=== PATIENT | male | born 1960 | race Caucasian/White ===

== ENCOUNTER 2017-06-09 07:30 | Inpatient (IN) | payer OTHER ==
[2017-06-09] MEDS ORDERED: LIDOCAINE 2% INJ 20 MG/ML (20 ML MDV) ONE ×2 (10:06→12:23)
[2017-06-09] MEDS ORDERED: fentaNYL (PF) 50 MCG/ML 2 ML AMP ONE (10:06)
[2017-06-09] MEDS ORDERED: MIDAZOLAM 2 MG/2 ML VIAL ONE ×2 (10:06→12:23)
[2017-06-09] MEDS ORDERED: MIDAZOLAM 2 MG/2 ML VIAL IV ONE ×3 (10:32→13:07)
[2017-06-09] MEDS ORDERED: fentaNYL (PF) 50 MCG/ML 2 ML AMP IV ONE (10:32)
[2017-06-09] MEDS ORDERED: LIDOCAINE 2% INJ 20 MG/ML SQ ONE (10:37)
[2017-06-09] MEDS ORDERED: NITROGLYCERIN 1000MCG/10ML SYRINGE INTRACORON ONE (10:44)
[2017-06-09] MEDS ORDERED: IOHEXOL 350 MG/ML 125ML BOTTLE INJ ONE (10:56)
[2017-06-09] MEDS ORDERED: HYDROmorphone 2 MG/ML 1 ML SYRINGE ONE ×2 (11:04→13:23)
[2017-06-09] MEDS ORDERED: HYDROmorphone 0.5 MG/0.5 ML SYRINGE IVP ONE (11:05)
[2017-06-09] MEDS ORDERED: SODIUM CHLORIDE 0.9% 1,000 ML IV ONE ×2 (11:06→13:10)
--- NOTE | 2017-06-09 12:08 | CC ---
CARDIAC CATHETERIZATION REPORT Mr. Gordon is a 56-year-old gentleman who started having chest discomfort yesterday. Patient's chest pain persisted and he came to the emergency room this morning. EKG showed diffuse T-wave inversions in the anterior lateral leads. In view of that, the patient was transferred from the emergency room. Patient's initial troponin was 1.2. This patient has a history of multiple angioplasties in the past. Patient is noncompliant with the medications and does not follow with a doctor. His last cardiac catheterization was done in January of 2016. Prior to that, patient had a stent in the proximal and mid LAD as well as the right coronary artery. PROCEDURE: Right groin was prepped and draped in the usual manner and the skin was infiltrated with 2% Xylocaine. The right femoral artery was entered using Seldinger technique. A #6-Irish sheath was placed in. Selective coronary angiography was then performed in multiple projections and the left ventricular pressures were obtained. The sheath was left in place and sutured. HEMODYNAMICS: Left ventricular end-diastolic pressure is 16 mmHg prior to angiography. No gradient is noted across the aortic valve. SELECTIVE CORONARY ANGIOGRAPHY: Left main coronary artery is short and patent. LAD is a good caliber blood vessel, and very proximal LAD just beyond the left main has a 90% stenosis. The mid LAD at the site of prior stent placement has about 30% to 40% stenosis. Circumflex coronary artery is an a good caliber blood vessel and it uses a good size obtuse marginal branch. Circumflex coronary artery and its branches are normal. The right coronary artery is a good caliber blood vessel and just proximal to the prior stent placement there is a 40% to 50% stenosis and at the site of distal edge of the stent there is another area of 40% to 50% stenosis. FINAL IMPRESSION: 1. This study shows evidence of 90% stenosis in the proximal left anterior descending artery, the mid left anterior descending artery at the site of prior stent placement has a 40% stenosis. 2. Circumflex coronary artery is normal. 3. The right coronary artery has a 40% to 50% stenosis at the site of prior proximal and distal edge of the stent. RECOMMENDATIONS: We will review the films with Dr. Génesis Feliciano. Consider stent to the LAD and possibly FFR to the RCA. MMODL / IJN: [id number] /
[2017-06-09] MEDS ORDERED: diphenhydrAMINE 50 MG/ML 1 ML VIAL ONE (12:24)
[2017-06-09] MEDS ORDERED: NITROGLYCERIN SL TABS 0.4 MG TAB SUBLINGUAL ONE ×2 (12:58→13:07)
[2017-06-09] MEDS: NITROGLYCERIN 1000MCG/10ML SYRINGE INTRACORON ONE ×3 (13:05→13:33)
[2017-06-09] MEDS ORDERED: diphenhydrAMINE 50 MG/ML 1 ML VIAL IVP ONE (13:07)
[2017-06-09] MEDS ORDERED: TIROFIBAN BOLUS 12.5MG/250 ML BAG IV ONE (13:09)
[2017-06-09] MEDS ORDERED: TIROFIBAN 12.5MG-250ML NS 250 ML IV ONE (13:10)
[2017-06-09] MEDS ORDERED: HEPARIN SODIUM 1,000 UN/ML (10ML VL) ONE (13:13)
[2017-06-09] MEDS ORDERED: amLODIPine 5 MG TAB ONE ×2 (13:18)
[2017-06-09] MEDS ORDERED: TICAGRELOR 90 MG TAB ONE (13:20)
[2017-06-09] MEDS ORDERED: amLODIPine 5 MG TAB PO ONE (13:21)
[2017-06-09] MEDS ORDERED: TICAGRELOR 90 MG TAB PO ONE (13:23)
[2017-06-09] MEDS ORDERED: HYDROmorphone 2 MG/ML 1 ML SYRINGE IV ONE (13:24)
[2017-06-09] MEDS ORDERED: NITROGLYCERIN-D5W PMX 50 MG in DEXTROSE/WATER 1 250ML.BAG IV ONE (13:30)
[2017-06-09] MEDS ORDERED: IOHEXOL 350 MG/ML (PER ML) 100ML BTL INJ ONE (13:38)
[2017-06-09] MEDS ORDERED: ZOLPIDEM 5 MG TAB PO PRN (13:41)
[2017-06-09] MEDS ORDERED: RX INFO: IV CONTRAST WAS GIVEN 1 EACH MISC MISCELLANE PRN (13:41)
[2017-06-09] MEDS ORDERED: NITROGLYCERIN SL TABS 0.4 MG TAB SUBLINGUAL PRN (13:41)
[2017-06-09] MEDS ORDERED: ATROPINE SULFATE 0.1 MG/ML 10ML SYRINGE IV PRN (13:41)
[2017-06-09] MEDS ORDERED: MAG HYDROX/AL HYDROX/SIMETH 30 ML CUP PO PRN (13:41)
[2017-06-09] MEDS ORDERED: ONDANSETRON 4 MG/2 ML VIAL ONE (13:47)
[2017-06-09] MEDS ORDERED: ONDANSETRON 4 MG/2 ML VIAL IVP ONE (13:49)
[2017-06-09] MEDS ORDERED: TIROFIBAN 12.5MG-250ML NS 250 ML IV SCH (14:00)
[2017-06-09] MEDS ORDERED: amLODIPine 5 MG TAB PO SCH (14:00)
[2017-06-09 14:03] LABS: Glucose,Whole Blood 120 mg/dL (75-99)
[2017-06-09] MEDS: SODIUM CHLORIDE 0.9% 1,000 ML IV SCH (14:07)
[2017-06-09] MEDS: NITROGLYCERIN-D5W PMX 50 MG in DEXTROSE/WATER 1 250ML.BAG IV SCH (14:10)
[2017-06-09 14:34] VITALS: BMI 22.2
--- NOTE | 2017-06-09 15:20 | PTCA ---
PERCUTANEOUSTRANS CORORONARY ANGIOGRAPHY DATE OF SERVICE: 06/09/2017 PROCEDURE: PTCA and stenting of proximal left anterior descending coronary artery and PTCA of mid LAD. Performed by Dr. Génesis Feliciano MODERATE CONSCIOUS SEDATION TIME: 35 minutes. CLINICAL INFORMATION: Mr. Ray Gordon is a 56-year-old gentleman with a history of CAD, noncompliance with medications, who sees Dr. VC Desai in the outpatient setting. This gentleman came into the hospital at [facility] with chest pain, had a non-ST elevation MD with precordial ST changes and underwent cardiac cath by Dr. VC Desai, which revealed a 99% stenosis involving the proximal LAD within the previously placed stent. The stent was placed in 2014 by . Prior to that, he also had a mid RCA stenting as well as mid LAD stenting. The last stent performed by was in 2014 involving the left main as well as the proximal LAD. This area has restenosis in the distal half of the stent of about 95% with somewhat partial flow in the distal LAD. He was advised intervention that was performed on the same day. PROCEDURE NOTE: The existing 6-Tajik introducer in the right femoral artery was used to perform the procedure. I used a JL3.5 guide catheter to cannulate the left coronary artery. Using a whisper wire, I crossed the lesion, wire was kept distally. A 2.5 caliber 12 mm long NCU4 balloon was used to pre-dilate the proximal LAD lesion and the same balloon was used to dilate the mid LAD in-stent restenosis as well. The in-stent restenosis in mid LAD was not that significant, but because of sluggish flow, it seemed to be more significant. There was a small diagonal branch that was also jailed just before the stented segment in mid LAD. After predilating the lesion in the mid LA, excellent angiographic result was noted. The proximal LAD was addressed with a 2.75 caliber, 12 mm long Xience stent at 12 atmospheres. Patient had mild chest discomfort, precordial ST changes that were more obvious. Excellent angiographic result without complication was achieved. Patient received Brilinta 180 mg orally. He received heparin 5000 units and IV push and also received Aggrastat infusion as per protocol and his ACT was about 220. Patient tolerated the procedure well. Excellent angiographic result was achieved. Angio-Seal device was used to secure hemostasis and was sent to the room in a stable condition. Results were discussed with the patient, but no other family member was available. MMODL / IJN: [id number] /
[2017-06-09] MEDS: HYDROcodone/APAP 5-325MG 1 EACH TAB PO PRN (20:00)
[2017-06-09] MEDS: ATORVASTATIN 80 MG TAB PO SCH (20:01)
[2017-06-09] MEDS: amLODIPine 5 MG TAB PO SCH (20:01)
[2017-06-09] MEDS: METOPROLOL TARTRATE 25 MG TAB PO SCH (20:01)
[2017-06-10] MEDS: HYDROcodone/APAP 5-325MG 1 EACH TAB PO PRN ×4 (02:14→22:29)
[2017-06-10 04:39] LABS: Basophils # (A) 0.1 k/uL (0-0.2); Basophils % (A) 1 %; CH 34.5; CHCM 32.9; Eosinophils # (A) 0.1 k/uL (0-0.7); Eosinophils % (A) 2 %; HGB 14.2 gm/dL (13.0-17.5); Luc # (Auto) 0.15; Luc % (Auto) 2; Lymphocytes # (A) 2.2 k/uL (1.0-4.8); Lymphocytes % (A) 29 %; MCH 34.7 pg (25.0-35.0); MCV 105.3 fL (80.0-100.0); Macrocytosis Moderate; Mean Platelet Volume 7.4; Monocytes # (A) 0.7 k/uL (0-1.0); Monocytes % (A) 9 %; Neutrophils # (A) 4.3 k/uL (1.3-7.7); Neutrophils % (A) 58 %; RBC 4.08 m/uL (4.30-5.90); RDW 14.5 % (11.5-15.5); WBC 7.4 k/uL (3.8-10.6); WBC (Perox) 7.06
[2017-06-10 04:57] LABS: Anion Gap 9 mmol/L; Blood Urea Nitrogen 7 mg/dL (9-20); Calcium 9.1 mg/dL (8.4-10.2); Carbon Dioxide 22 mmol/L (22-30); Chloride 105 mmol/L (98-107); Glucose 100 mg/dL (74-99); Non-African American GFR(MDRD) >60 (>60 ml/min/1.73 sqM); Potassium 4.2 mmol/L (3.5-5.1); Sodium 136 mmol/L (137-145)
[2017-06-10] MEDS: SODIUM CHLORIDE 0.9% 1,000 ML IV SCH (05:37)
[2017-06-10] MEDS: CLOPIDOGREL 75 MG TAB PO SCH (08:31)
[2017-06-10] MEDS: METOPROLOL TARTRATE 25 MG TAB PO SCH ×2 (08:31→20:37)
[2017-06-10] MEDS: amLODIPine 5 MG TAB PO SCH (08:31)
[2017-06-10] MEDS: LISINOPRIL 20 MG TAB PO SCH (08:31)
[2017-06-10] MEDS: ASPIRIN 81 MG PO SCH (08:31)
[2017-06-10] MEDS: VARENICLINE 0.5 MG TAB PO SCH (11:29)
--- NOTE | 2017-06-10 11:39 | CONS ---
CONSULTATION HISTORY: This patient is status post stent to the proximal LAD. He is doing well. Denies any chest pain. Denies any shortness of breath. The right groin is slightly tender. There is no evidence of any hematoma. Blood pressure is 110/78 mmHg. First and second heart sounds are normal. Lungs are clinically clear to auscultation and percussion. Abdomen is soft. The patient's electrolytes, BUN, and creatinine are normal. The patient will be transferred to the selective care unit. Echo and Doppler study will be done. MMODL / IJN: [id number] /
--- NOTE | 2017-06-10 13:28 | ECHOF ---
Referral Reason:acute mi MEASUREMENTS -------- HEIGHT: 182.9 cm WEIGHT: 77.1 kg BP: RVIDd: 3.8 cm (< 3.3) IVSd: 1.1 cm (0.6 - 1.1) LVIDd: 4.6 cm (3.9 - 5.3) LVPWd: 1.1 cm (0.6 - 1.1) IVSs: 1.9 cm LVIDs: 2.7 cm LVPWs: 1.9 cm LAESV Index (A-L): 18.77 ml/m Ao Diam: 3.3 cm (2.0 - 3.7) AV Cusp: 1.8 cm (1.5 - 2.6) LA Diam: 2.3 cm (2.7 - 3.8) MV EXCURSION: 18.395 mm (> 18.000) MV EF SLOPE: 50 mm/s (70 - 150) EPSS: 0.3 cm MV E Kevin: 0.43 m/s MV DecT: 472 ms MV A Kevin: 0.62 m/s MV E/A Ratio: 0.70 RAP: 5.00 mmHg RVSP: 7.85 mmHg FINDINGS -------- Resting bradycardia (HR<60bpm). This was a technically adequate study. The left ventricular size is normal. There is borderline concentric left ventricular hypertrophy. Overall left ventricular systolic function is low-normal with, an EF between 50 - 55 %. The right ventricle is normal in size and function. Normal LA size by volume 22+/-6 ml/m2. The right atrium is normal in size. There is mild aortic valve sclerosis. There is no evidence of aortic regurgitation. There is no evidence of aortic stenosis. The mitral valve leaflets are mildly thickened. There is trace to mild mitral regurgitation. Trace tricuspid regurgitation present. Right ventricular systolic pressure is normal at < 35 mmHg. There is no evidence of pulmonary hypertension. The pulmonic valve was not well visualized. The aortic root size is normal. Normal inferior vena cava with normal inspiratory collapse consistent with estimated right atrial pressure of 5 mmHg. The pericardium is normal. There is no pericardial effusion. CONCLUSIONS -------- 1. Resting bradycardia (HR<60bpm). 2. Trace tricuspid regurgitation present. 3. Right ventricular systolic pressure is normal at < 35 mmHg. 4. There is no evidence of pulmonary hypertension. 5. The pulmonic valve was not well visualized. 6. The aortic root size is normal. 7. There is no pericardial effusion. 8. This was a technically adequate study. 9. The left ventricular size is normal. 10. There is borderline concentric left ventricular hypertrophy. 11. Overall left ventricular systolic function is low-normal with, an EF between 50 - 55 %. 12. Normal LA size by volume 22+/-6 ml/m2. 13. There is mild aortic valve sclerosis. 14. The mitral valve leaflets are mildly thickened. 15. There is trace to mild mitral regurgitation. [employer] RESEARCH SENIOR PROJECT MANAGER: Johnson Beckett RDCS
[2017-06-10] MEDS: NITROGLYCERIN-D5W PMX 50 MG in DEXTROSE/WATER 1 250ML.BAG IV SCH (14:56)
[2017-06-10] MEDS: ATORVASTATIN 80 MG TAB PO SCH (20:37)
[2017-06-11 01:39] VITALS: RESP 18
[2017-06-11] MEDS: CLOPIDOGREL 75 MG TAB PO SCH (09:26)
[2017-06-11] MEDS: VARENICLINE 0.5 MG TAB PO SCH (09:26)
[2017-06-11] MEDS: ASPIRIN 81 MG PO SCH (09:26)
[2017-06-11] MEDS: NITROGLYCERIN-D5W PMX 50 MG in DEXTROSE/WATER 1 250ML.BAG IV SCH (09:27)
[2017-06-11] MEDS: METOPROLOL TARTRATE 25 MG TAB PO SCH ×2 (09:27→19:59)
[2017-06-11] MEDS: LISINOPRIL 20 MG TAB PO SCH (09:27)
[2017-06-11] MEDS: HYDROcodone/APAP 5-325MG 1 EACH TAB PO PRN ×2 (09:28→19:58)
--- NOTE | 2017-06-11 17:13 | PN ---
PROGRESS NOTE This patient was admitted with a non-Q-wave myocardial infarction and underwent stent to the ostial LAD. Patient is doing well. Denies any chest pain, no shortness of breath. First and second heart sounds are normal. We will continue the current medications. Repeat the chest x-ray. Patient is on Chantix and the patient can be discharged home tomorrow. MMMACIEJ / OTTON: [id number] /
[2017-06-11] MEDS: ATORVASTATIN 80 MG TAB PO SCH (19:59)
[2017-06-12] MEDS: HYDROcodone/APAP 5-325MG 1 EACH TAB PO PRN (07:55)
[2017-06-12] MEDS: ASPIRIN 81 MG PO SCH (07:56)
[2017-06-12] MEDS: METOPROLOL TARTRATE 25 MG TAB PO SCH (07:56)
[2017-06-12] MEDS: CLOPIDOGREL 75 MG TAB PO SCH (07:56)
[2017-06-12] MEDS: LISINOPRIL 20 MG TAB PO SCH (07:57)
[2017-06-12] MEDS: VARENICLINE 0.5 MG TAB PO SCH (07:58)
[2017-06-12] MEDS: NITROGLYCERIN-D5W PMX 50 MG in DEXTROSE/WATER 1 250ML.BAG IV SCH (07:58)
[2017-06-12 13:15] VITALS: BP 113/66; PULSE 58; TEMP 97.7
--- NOTE | 2017-06-12 15:41 | PN ---
PROGRESS NOTE This patient is status post stent to the left anterior descending artery. Patient is doing fairly well. Denies any chest pain. Denies any shortness of breath. Clinically remains stable. First and second heart sounds are normal. Lungs are clear to auscultation and percussion. Patient was again educated regarding taking of the medications regularly. EKG done today shows improvement in the T-wave inversions. Patient will be discharged home and seen in the office in couple of weeks. MMODL / IJN: [id number] /
[2017-06-13] MEDS ORDERED: VARENICLINE 0.5 MG TAB PO SCH (09:00)
[2017-06-16] MEDS ORDERED: VARENICLINE 1 MG TAB PO SCH (21:00)
== END 2017-06-12 16:14 | disposition home or self-care (01) | DRG 247 ==
LOC: OBSVTOIN 10:11 → 3OBS 10:11 → 6ICU 13:26 → 6SEL 06-10 17:23
PROVIDERS: ADMIT Internal Medicine Cardiovascular Disease; ATTEND Internal Medicine Cardiovascular Disease
PROC: B2111ZZ Fluoroscopy of Multiple Coronary Arteries using Low Osmolar Contrast (ICD-10-PCS; 2017-06-09)
PROC: 027034Z Dilation of Coronary Artery, One Artery with Drug-eluting Intraluminal Device, Percutaneous Approach (ICD-10-PCS; principal; 2017-06-09 10:00)
DX: I21.4 Non-ST elevation (NSTEMI) myocardial infarction (principal); T82.855A Stenosis of coronary artery stent, initial encounter; F17.210 Nicotine dependence, cigarettes, uncomplicated; I25.10 Atherosclerotic heart disease of native coronary artery without angina pectoris; T39.016A Underdosing of aspirin, initial encounter; M19.90 Unspecified osteoarthritis, unspecified site; Z96.641 Presence of right artificial hip joint; Z79.82 Long term (current) use of aspirin; Z91.14 Patient's other noncompliance with medication regimen; Z87.19 Personal history of other diseases of the digestive system; Z88.0 Allergy status to penicillin; Z86.73 Personal history of transient ischemic attack (TIA), and cerebral infarction without residual deficits
CPT/HCPCS: 80048; 85025; 85347; 93306; 93458; 94760

== ENCOUNTER 2018-01-07 17:31 | Emergency (ER) | payer OTHER ==
[2018-01-07 17:39] VITALS: BP 176/101; PULSE 94; RESP 20; TEMP 98.4
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
== END 2018-01-07 18:55 | disposition home or self-care (01) ==
LOC: EC 17:31
DX: G89.29 Other chronic pain (principal); M25.551 Pain in right hip; F17.200 Nicotine dependence, unspecified, uncomplicated; Z88.0 Allergy status to penicillin; Z86.14 Personal history of Methicillin resistant Staphylococcus aureus infection; Z96.641 Presence of right artificial hip joint
CPT/HCPCS: 99283

== ENCOUNTER 2018-03-19 13:27 | Emergency (ER) | payer OTHER ==
[2018-03-19 13:44] VITALS: RESP 18
[2018-03-19] MEDS ORDERED: ACETAMINOPHEN TAB 500 MG TAB PO STA (14:14)
[2018-03-19] MEDS ORDERED: IBUPROFEN 600 MG TAB PO STA (14:14)
--- NOTE | 2018-03-19 14:25 | ED ---
Lower Extremity Injury HPI - General Chief Complaint: Extremity Injury, Lower Stated Complaint: fall/hip pain Time Seen by Provider: 03/19/18 13:51 Source: patient Mode of arrival: ambulatory Limitations: no limitations - History of Present Illness Initial Comments: 57-year-old male patient presents to the emergency department today for evaluation of right hip pain. Patient states that this morning he was walking, tripped over the sidewalk, and fell landing on the right hip. Patient states he did hit his head when he fell but he denies any loss of consciousness. States he is having significant right hip pain however he is able to ambulate. Patient did have a previous fracture with subsequent surgery to the right hip. Denies any nausea, vomiting, headache, blurred vision, double vision, neck pain , back pain, chest pain, shortness breath, abdominal pain, or difficulties with bowel movements or urination. - Related Data Previous Rx's Medication Instructions Recorded Aspirin 81 mg PO DAILY #30 chew 06/12/17 Atorvastatin [Lipitor] 80 mg PO HS #30 tab 06/12/17 Clopidogrel [Plavix] 75 mg PO DAILY #30 tab 06/12/17 Lisinopril [Zestril] 20 mg PO DAILY #30 tab 06/12/17 Metoprolol Tartrate [Lopressor] 25 mg PO BID #60 tab 06/12/17 Nitroglycerin Sl Tabs [Nitrostat] 0.4 mg SUBLINGUAL Q5M PRN #25 tab 06/12/17 Varenicline [Chantix Continuing 1 mg PO BID #60 tab 06/12/17 Pack] HYDROcodone/APAP 5-325MG [[place] 5] 1 each PO Q6HR PRN #10 tab 01/07/18 Allergies Allergy/AdvReac Type Severity Reaction Status Date / Time Penicillins AdvReac Nausea & Verified 03/19/18 13:42 Vomiting & Diarrhea Review of Systems ROS Statement: Those systems with pertinent positive or pertinent negative responses have been documented in the HPI. ROS Other: All systems not noted in ROS Statement are negative. Past Medical History Past Medical History: Asthma, Coronary Artery Disease (CAD), Chest Pain / Angina , COPD, CVA/TIA, GERD/Reflux, Hyperlipidemia, Hypertension, Myocardial Infarction (NM), Osteoarthritis (OA), Pneumonia Additional Past Medical History / Comment(s): Hx of 4 NM's last one being on 2014, CVA with tunnel vision bilaterally, PUD, precancerous esophageal polyps removed, esophagial ulceration, generalized arthritis, sinus problems, past r hip fracture with surgery, past L lower leg fracture/casted, past R arm fracture /casted, bilateral clavicles fractrued, circumcism. Last Myocardial Infarction Date:: 07/2015 History of Any Multi-Drug Resistant Organisms: MRSA Date of last positivie culture/infection: 2003 MDRO Source:: chin Past Surgical History: Heart Catheterization, Heart Catheterization With Stent, Hernia Repair, Orthopedic Surgery Additional Past Surgical History / Comment(s): Multiple angioplasties/stents, bilateral inguinal hernia repairs, R hip hemiarthroplasty, left elbow ulnar nerve sx, left shoulder rotator cuff repair, EGD with precancerous polypectomy/ ulerated esophagus, colonoscopy, bronchoscopy Past Anesthesia/Blood Transfusion Reactions: No Reported Reaction Date of Last Stent Placement:: 07/2015 Past Psychological History: Anxiety, Depression Smoking Status: Current every day smoker Past Alcohol Use History: Occasional Past Drug Use History: None Reported - Past Family History Mother Family Medical History: Deep Vein Thrombosis (DVT) Additional Family Medical History / Comment(s): back surgery. Mother is age 76 years. Further hx unknown. Father Family Medical History: Congestive Heart Failure (CHF) Additional Family Medical History / Comment(s): Father at age 53. Hx ETOH abuse. Further HX unknown. General Exam Limitations: no limitations General appearance: alert, in no apparent distress, other (This is a thin appearing adult male patient in no acute distress. Vital signs upon presentation are temperature 99.0F, pulse 91, respirations 18, blood pressure 143/85, pulse ox 98% on room air.) Eye exam: Present: normal appearance, PERRL, EOMI. Absent: scleral icterus, conjunctival injection, periorbital swelling ENT exam: Present: normal exam, normal oropharynx, mucous membranes moist Neck exam: Present: normal inspection, full ROM, other (Nontender, no step-off, no deformity to firm midline palpation of the posterior cervical spine. Full range of motion without pain or limitation.). Absent: tenderness, meningismus, lymphadenopathy Respiratory exam: Present: normal lung sounds bilaterally. Absent: respiratory distress, wheezes, rales, rhonchi, stridor Cardiovascular Exam: Present: regular rate, normal rhythm, normal heart sounds. Absent: systolic murmur, diastolic murmur, rubs, gallop, clicks GI/Abdominal exam: Present: soft, normal bowel sounds. Absent: distended, tenderness, guarding, rebound, rigid Extremities exam: Present: normal inspection, full ROM, tenderness (Right lateral hip tenderness), normal capillary refill, other (Skin to the right lower extremity is pink, warm, and dry. Cap refills less than 3 seconds. Pedal and posttibial pulses are 2+ and equal bilaterally. There is no shortening or rotation. Patient is full range of motion and is able to bear weight.). Absent: pedal edema, joint swelling, calf tenderness Back exam: Present: normal inspection, other (Nontender, no step-off, no deformity to firm midline palpation of the thoracic and lumbar vertebrae. Full range of motion without pain or limitation.). Absent: vertebral tenderness Neurological exam: Present: alert, oriented X3, CN II-XII intact, other ( Strength in all 4 extremities is 5/5.) Psychiatric exam: Present: normal affect, normal mood Skin exam: Present: warm, dry, intact, normal color. Absent: rash Course Vital Signs 03/19/18 13:42 Temperature 99 F Pulse Rate 91 Respiratory 18 Rate Blood Pressure 143/85 O2 Sat by Pulse 98 Oximetry Medical Decision Making - Medical Decision Making 57-year-old male patient presents the emergency department today for evaluation of right hip pain after experiencing a fall this morning. Physical examination does reveal some mild right hip tenderness. Patient has full range of motion and neurovascular status is intact. Patient is able to ambulate on the hip. X- ray of the hip and pelvis were obtained and showed no acute osseous abnormalities. Did inform the patient of results. He is instructed to take Tylenol Motrin for pain control. He is instructed to apply ice to the right hip. He does have an appointment with his orthopedic physician on March 27, he is urged to keep this appointment. Return parameters discussed in detail. He verbalizes understanding and agrees this plan. - Radiology Data Radiology results: report reviewed, image reviewed Single AP view of the pelvis and 2 views of the right hip are obtained. Patient is status post right total hip arthroplasty. No evidence of periprosthetic lucency or. Prosthetic fracture. Heterotopic ossification is seen in the right hip soft tissues. Limited evaluation of the left hip is unremarkable. The overlying soft tissue appears otherwise unremarkable. The hip and sacroiliac joints appear symmetric and unremarkable. Suture material seen within the low pelvis as well as a phleboliths. Impression by Dr. Hernandez shows no acute fracture dislocation in the pelvis or right hip and this patient status post total hip arthroplasty. Disposition Clinical Impression: Contusion of right hip Disposition: HOME SELF-CARE Condition: Good Instructions: Contusion in Adults (ED), Hip Pain (ED) Additional Instructions: Apply ice to the painful areas. Take Tylenol Motrin for pain control. Follow- up with your orthopedic surgeon for recheck in 1-2 days. Return here immediately for any new, worsening, or concerning symptoms. Is patient prescribed a controlled substance at d/c from ED?: No Referrals: Renard Valle MD [Primary Care Provider] - 1-2 days Time of Disposition: 14:59
--- NOTE | 2018-03-19 14:44 | XR ---
EXAMINATION TYPE: XR Hip RT and AP Pelvis DATE OF EXAM: 03/19/2018 COMPARISON: NONE HISTORY: Right hip pain, fall TECHNIQUE: A single AP view of the pelvis is obtained. Two views of the right hip are obtained. FINDINGS: Patient is status post right hip total arthroplasty. No evidence of periprosthetic lucency or periprosthetic fracture. Heterotopic ossification is seen in the right hip soft tissues. The limi katy evaluation of the left hip is unremarkable. The overlying soft tissue appears otherwise unremarka ble. The hip and sacroiliac joints appear symmetric and unremarkable. Suture material is seen within the low pelvis as well as a phlebolith. IMPRESSION: There is no acute fracture or dislocation in the pelvis or right hip in this patient sta tus post total hip arthroplasty.
[2018-03-19 15:10] VITALS: BP 167/99; PULSE 77; TEMP 98.3
== END 2018-03-19 15:09 | disposition home or self-care (01) ==
LOC: SUPCPDRO 13:27 → EC 13:27
DX: S70.01XA Contusion of right hip, initial encounter (principal); F17.200 Nicotine dependence, unspecified, uncomplicated; Z95.1 Presence of aortocoronary bypass graft; Z96.641 Presence of right artificial hip joint; Z98.890 Other specified postprocedural states; Z88.0 Allergy status to penicillin; W01.198A Fall on same level from slipping, tripping and stumbling with subsequent striking against other object, initial encounter; Y92.480 Sidewalk as the place of occurrence of the external cause; Y93.01 Activity, walking, marching and hiking
CPT/HCPCS: 73502; 99283

== ENCOUNTER 2019-05-23 09:34 | Inpatient (IN) | payer OTHER ==
[2019-05-23] MEDS ORDERED: NITROGLYCERIN SL TABS 0.4 MG TAB SUBLINGUAL ONE ×2 (10:39→13:29)
[2019-05-23] MEDS ORDERED: HYDROmorphone 1 MG/ML 1 ML SYRINGE IVP STA (11:02)
[2019-05-23] MEDS ORDERED: HYDROmorphone 1 MG/ML 1 ML SYRINGE IVP PRN (12:03)
[2019-05-23] MEDS ORDERED: NITROGLYCERIN SL TABS 0.4 MG TAB SUBLINGUAL PRN ×2 (13:39→18:35)
[2019-05-23] MEDS ORDERED: ALPRAZolam 0.5 MG TAB PO PRN (13:39)
[2019-05-23] MEDS ORDERED: SODIUM CHLORIDE 0.9% 1,000 ML in EMPTY BAG 1 BAG IV ONE (13:39)
[2019-05-23] MEDS ORDERED: ASPIRIN 325 MG TAB PO STA (13:39)
[2019-05-23] MEDS ORDERED: ALPRAZolam 0.25 MG TAB PO PRN (13:39)
[2019-05-23] MEDS ORDERED: ATORVASTATIN 80 MG TAB PO STA (13:39)
[2019-05-23] MEDS ORDERED: SODIUM CHLORIDE 0.9% 1,000 ML IV ONE (13:44)
[2019-05-23] MEDS ORDERED: MIDAZOLAM PF (FBP) 2 MG/2 ML VIAL IV ONE (14:16)
[2019-05-23] MEDS ORDERED: LIDOCAINE 1% INJ 10MG/ML (20 ML MDV) SQ ONE (14:16)
[2019-05-23] MEDS ORDERED: BIVALIRUDIN 250 MG in SODIUM CHLORIDE 0.9% 50 ML IV ONE (14:25)
[2019-05-23] MEDS ORDERED: BIVALIRUDIN BOLUS 250 MG/50 ML IV ONE (14:25)
[2019-05-23] MEDS ORDERED: ADENOSINE 90 MG in SODIUM CHLORIDE 0.9% 60 ML IVP ONE (14:31)
[2019-05-23] MEDS ORDERED: IOPAMIDOL-370 125ML BTL INJ ONE (14:47)
[2019-05-23] MEDS ORDERED: RX INFO: IV CONTRAST WAS GIVEN 1 EACH MISC MISCELLANE PRN (14:55)
[2019-05-23] MEDS ORDERED: SODIUM CHLORIDE 0.9% 1,000 ML IV SCH (15:00)
[2019-05-23] MEDS ORDERED: ONDANSETRON 4 MG/2 ML VIAL IVP PRN (15:50)
[2019-05-23] MEDS ORDERED: hydrALAZINE HCL 20 MG/ML 1 ML VIAL IVP STA (16:30)
[2019-05-23] MEDS ORDERED: THIAMINE 100 MG TAB PO SCH (17:30)
[2019-05-23] MEDS ORDERED: LORazepam 2 MG/ML INJ IV PRN ×2 (18:45)
[2019-05-23] MEDS: HYDROcodone/APAP 5-325MG 1 EACH TAB PO PRN (18:50)
[2019-05-23] MEDS: LORazepam 2 MG/ML INJ IV PRN ×2 (19:09→21:51)
[2019-05-23] MEDS ORDERED: hydrALAZINE HCL 20 MG/ML 1 ML VIAL IVP PRN (20:34)
[2019-05-23] MEDS ORDERED: amLODIPine 5 MG TAB PO STA (20:34)
[2019-05-23] MEDS: VARENICLINE 1 MG TAB PO SCH (20:35)
[2019-05-23] MEDS: METOPROLOL TARTRATE 25 MG TAB PO SCH (20:37)
--- NOTE | 2019-05-23 20:45 | CE ---
CARDIAC ELECTROPHYSIOLOGY REPORT DATE OF SERVICE: May 23, 2019 PERFORMING PHYSICIAN: Arnulfo Jiménez MD, director packaging. PROCEDURE PERFORMED: Fractional flow reserve FFR of the right coronary artery. INDICATION: This is a pleasant 58-year-old gentleman who sees Dr. VC Desai in the office as an outpatient with known history of CAD and prior stenting of the LAD and RCA, presented to [facility] with chest discomfort and ruled in for acute non-ST elevation myocardial infarction. He underwent a heart catheterization by Dr. Desai at [facility] and that revealed intermediate to severe disease involving the mid RCA, which seems to be in stent. Because of that, an FFR of the RCA was advised. APPROACH: Left common femoral artery. COMPLICATION: None. LEVEL OF SEDATION: Moderate with sedation length of 29 minutes. PROCEDURE DESCRIPTION: After obtaining an informed consent, the patient was brought to the cardiac catheterization laboratory technician. I did exchange the old 6-[place] 11 cm sheath in the left groin into a new 11 cm 6- [place] sheath over a 035 short wire. After that, after zeroing the Doppler wire and equalizing between the Doppler wire and the guiding catheter which was JR4 guiding catheter with an FFR per IV adenosine infusion and the FFR came in to be at 082, which is above the ischemic threshold which is 0.80. At that point, the procedure was completed. Please note that we started anticoagulation with Angiomax before passing the wire. CONCLUSION: Intermediate to severe in-stent restenosis involving the RCA in the midportion. FFR was applied and came in to be at 0.82. POST PROCEDURE MANAGEMENT: 1. Maximize medical treatment. 2. Risk factor modification. 3. Probably an aortogram with runoff down the line. The patient does have occluded right common iliac artery and he has intermittent claudication in the right leg. MMODL / IJN: [id number] /
[2019-05-24] MEDS: THIAMINE 100 MG TAB PO SCH ×2 (06:23→12:12)
[2019-05-24] MEDS: HYDROcodone/APAP 5-325MG 1 EACH TAB PO PRN ×2 (06:51→13:12)
[2019-05-24] MEDS: METOPROLOL TARTRATE 25 MG TAB PO SCH ×2 (08:21→19:58)
[2019-05-24] MEDS: LISINOPRIL 20 MG TAB PO SCH (08:21)
[2019-05-24] MEDS: ASPIRIN 81 MG PO SCH (08:21)
[2019-05-24] MEDS: VARENICLINE 1 MG TAB PO SCH ×2 (08:21→19:58)
[2019-05-24] MEDS: CLOPIDOGREL 75 MG TAB PO SCH (08:21)
--- NOTE | 2019-05-24 10:14 | P.HPIM ---
History of Present Illness H&P Date: 05/24/19 Chief Complaint: Chest pain This is a 58-year-old male with a known past medical history of myocardial infarction 4, coronary disease with previous cardiac stents, CVA, COPD, nicotine dependence and alcohol abuse. Patient was a transfer from [facility]. He initially presented to [facility] with complaints of chest pain and had evidence of acute non-ST elevated myocardial infarction. He underwent a heart catheterization with Dr. Desai at [facility] and that revealed intermediate to severe disease involving the mid RCA which seems to be in the stent. Patient was then transferred to [facility] to have an FFR of the RCA with Dr. Jiménez. Patient underwent fractional flow reserve of RCA which revealed intermediate to severe in-stent restenosis involving the RCA in the mid portion. Cardiology is recommending medical management. Patient had not been taking medications at home. Beta jose, CHANEL inhibitor, aspirin, Plavix, Lipitor have been started. Patient did have elevated blood pressure yesterday requiring a dose of Norvasc and hydralazine. Blood pressure has improved this morning. Patient still reporting some chest pains but not as severe. Also having occasional shortness of breath. He has been up and ambulating in the room. He denies any nausea or vomiting. Denies any burning with urination or bowel movement changes. Patient does report some mild lower abdominal tenderness but reporting having bowel movements and no difficulty urinating. Nursing staff did give pain medication for left groin pain last night. 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 Last Myocardial Infarction Date:: 07/2015 History of Any Multi-Drug Resistant Organisms: MRSA Date of last positivie culture/infection: 2003 MDRO Source:: chin Past Surgical History: Heart Catheterization, Heart Catheterization With Stent, Hernia Repair, Orthopedic Surgery Additional Past Surgical History / Comment(s): Multiple angioplasties/stents, bilateral inguinal hernia repairs, R hip hemiarthroplasty, left elbow ulnar nerve sx, left shoulder rotator cuff repair, EGD with precancerous polypectomy/ulerated esophagus, colonoscopy, bronchoscopy Past Anesthesia/Blood Transfusion Reactions: No Reported Reaction Date of Last Stent Placement:: 07/2015 Past Psychological History: Anxiety, Depression Additional Psychological History / Comment(s): Pt resides alone "some of the time." He uses a cane to ambulate. He does not drive, he gets to [facility] by bus or taxi. Smoking Status: Current every day smoker Past Alcohol Use History: Occasional Additional Past Alcohol Use History / Comment(s): Pt used to drink a case of beer a day until 2014. Has been in a couple treatment programs and drinks less at this time-"a beer now and then." Pt is a ppd smoker. He started smoking in 1974. Past Drug Use History: None Reported - Past Family History Mother Family Medical History: COPD, Coronary Artery Disease (CAD), Deep Vein Thrombosis (DVT), Hypertension Additional Family Medical History / Comment(s): Back surgery and a Hx of alcohol abuse. Mother is age 76 years. Further hx unknown. Father Family Medical History: Congestive Heart Failure (CHF) Additional Family Medical History / Comment(s): Father at age 53. Hx ETOH abuse. Further HX unknown. Medications and Allergies Home Medications Medication Instructions Recorded Confirmed Type Aspirin 81 mg PO DAILY #30 chew 06/12/17 05/23/19 Rx Allergies Allergy/AdvReac Type Severity Reaction Status Date / Time Penicillins AdvReac Nausea & Verified 05/23/19 19:00 Vomiting & Diarrhea Physical Exam Vitals: Vital Signs Temp Pulse Pulse Resp BP BP BP 05/24/19 08:00 97.9 F 86 20 121/77 05/24/19 04:00 97.9 F 88 16 140/95 05/24/19 00:00 98.2 F 82 16 150/95 05/23/19 22:00 75 155/95 05/23/19 21:40 156/105 05/23/19 20:23 98.4 F 84 16 188/110 05/23/19 19:36 79 16 158/87 05/23/19 18:40 80 20 168/111 05/23/19 17:40 80 16 154/80 05/23/19 17:10 16 178/100 05/23/19 16:45 80 16 169/90 05/23/19 16:40 80 16 158/69 05/23/19 16:10 78 16 179/101 05/23/19 15:40 83 16 183/99 05/23/19 15:25 79 181/98 05/23/19 15:18 89 16 162/79 05/23/19 13:45 97.9 F 68 16 175/105 Pulse Ox 05/24/19 08:00 96 05/24/19 04:00 98 05/24/19 00:00 96 05/23/19 22:00 05/23/19 21:40 05/23/19 20:23 95 05/23/19 19:36 95 05/23/19 18:40 94 L 05/23/19 17:40 94 L 05/23/19 17:10 96 05/23/19 16:45 05/23/19 16:40 97 05/23/19 16:10 98 05/23/19 15:40 98 05/23/19 15:25 05/23/19 15:18 97 05/23/19 13:45 95 Intake and Output 05/23/19 05/24/19 05/24/19 22:59 06:59 14:59 Intake Total 240 240 Output Total 125 1450 Balance 115 -1450 240 Intake: Oral 240 240 Output: Urine 125 1450 Other: Voiding Method Urinal Urinal # Voids 1 1 Weight 67.3 kg Head normocephalic Neck supple Lungs clear to auscultation bilaterally no wheezing or crackles Heart regular rate and rhythm S1-S2, no rub or gallop Abdomen is soft mild lower abdominal tenderness nondistended positive bowel sounds no hepatosplenomegaly Extremities no edema Neuro alert and orientated to 3 Thrombosis Risk Factor Assmnt - Choose All That Apply Each Factor Represents 1 point: Abnormal pulmonary function (COPD), Medical pt on bed rest Each Risk Factor Represents 2 Points: Central venous access Other congenital or acquired thrombophilia - If yes, enter type in comment: No Thrombosis Risk Factor Assessment Total Risk Factor Score: 4 Thrombosis Risk Factor Assessment Level: Moderate Risk Assessment and Plan Assessment: 1. Acute non-ST elevated myocardial infarction with heart cath at [facility] showing intermediate to severe disease involving the mid RCA which seems to be in the stent. Therefore patient needed to have FFR of the RCA. FFR completed yesterday with Dr. Jiménez showing intermediate to severe in-stent restenosis invo lving the RCA in the midportion. FFR was applied and came in to be at 0.82. Cardiology is recommending maximizing medical treatment. Beta jose, CHANEL inhibitor, statin, Plavix and aspirin have been started. 2. History of multiple myocardial infarctions and coronary disease with previous cardiac stents. Patient had been noncompliant with medications at home and had only been taking a baby aspirin 3. History of CVA 4. History of COPD stable 5. Nicotine dependence: Discussed smoking cessation for greater than 5 minutes. Currently on Chantix 6. Alcohol abuse with alcohol intoxication at [facility]. Continue the CIWA protocol ATIVAN PRN with thiamine and multivitamin 7. Occluded right common iliac artery with intermittent claudication in the right leg. Cardiology recommending aortogram with runoff down the line 8. Essential hypertension with elevated blood pressures last night requiring a dose of Norvasc and IV hydralazine. Blood pressures this morning showing improvement. GI prophylaxis Pepcid and DVT prophylaxis subcu heparin Time with Patient: Greater than 30 (Greater than 50% of the total time spent in counseling and coordination of care.I performed an examination of the patient and discussed their management with the physician Mercerizing Range Feeder. I have reviewed the Physician Mercerizing Range Feeder's notes and agree with the documented findings and plan of care)
[2019-05-24 10:17] LABS: Basophils # (A) 0.1 k/uL (0-0.2); Basophils % (A) 1 %; Eosinophils # (A) 0.2 k/uL (0-0.7); Eosinophils % (A) 2 %; HCT 39.9 % (39.0-53.0); HGB 12.5 gm/dL (13.0-17.5); Lymphocytes # (A) 1.6 k/uL (1.0-4.8); Lymphocytes % (A) 24 %; MCH 32.9 pg (25.0-35.0); MCHC 31.4 g/dL (31.0-37.0); MCV 104.8 fL (80.0-100.0); Macrocytosis Slight; Monocytes # (A) 0.5 k/uL (0-1.0); Monocytes % (A) 7 %; Neutrophils # (A) 4.1 k/uL (1.3-7.7); Neutrophils % (A) 63 %; Platelet Count 358 k/uL (150-450); RDW 12.1 % (11.5-15.5); WBC 6.6 k/uL (3.8-10.6)
[2019-05-24 10:48] LABS: ALT 23 U/L (21-72); AST 26 U/L (17-59); African American GFR (CKD) >90 (>60 ml/min/1.73 sqM); Albumin 3.4 g/dL (3.5-5.0); Alkaline Phosphatase 63 U/L (38-126); Anion Gap 7 mmol/L; Blood Urea Nitrogen 9 mg/dL (9-20); Calcium 9.2 mg/dL (8.4-10.2); Carbon Dioxide 26 mmol/L (22-30); Chloride 102 mmol/L (98-107); Glucose 94 mg/dL (74-99); Potassium 4.4 mmol/L (3.5-5.1); Sodium 135 mmol/L (137-145); Total Bilirubin 0.7 mg/dL (0.2-1.3); Total Protein 6.6 g/dL (6.3-8.2)
[2019-05-24] MEDS: MULTIVITAMINS, THERA 1 EACH TAB PO SCH (12:12)
[2019-05-24] MEDS: ATORVASTATIN 80 MG TAB PO SCH (19:58)
[2019-05-24] MEDS: HEPARIN SODIUM,PORCINE 5,000 UNIT/ML 1 ML VIAL SQ SCH (19:58)
[2019-05-24] MEDS: LORazepam 2 MG/ML INJ IV PRN (23:12)
[2019-05-25] MEDS: THIAMINE 100 MG TAB PO SCH ×2 (06:35→12:20)
[2019-05-25 07:20] LABS: Basophils # (A) 0.1 k/uL (0-0.2); Basophils % (A) 2 %; Eosinophils # (A) 0.4 k/uL (0-0.7); Eosinophils % (A) 6 %; HCT 41.2 % (39.0-53.0); HGB 13.2 gm/dL (13.0-17.5); Lymphocytes # (A) 1.8 k/uL (1.0-4.8); Lymphocytes % (A) 27 %; MCH 34.1 pg (25.0-35.0); MCV 106.6 fL (80.0-100.0); Macrocytosis Slight; Mean Platelet Volume 5.7; Monocytes # (A) 0.5 k/uL (0-1.0); Monocytes % (A) 8 %; Neutrophils # (A) 3.6 k/uL (1.3-7.7); Neutrophils % (A) 55 %; Platelet Count 366 k/uL (150-450); RBC 3.86 m/uL (4.30-5.90); RDW 11.8 % (11.5-15.5); WBC 6.6 k/uL (3.8-10.6)
[2019-05-25 07:46] LABS: ALT 26 U/L (21-72); AST 27 U/L (17-59); African American GFR (CKD) >90 (>60 ml/min/1.73 sqM); Albumin 3.5 g/dL (3.5-5.0); Alkaline Phosphatase 64 U/L (38-126); Anion Gap 7 mmol/L; Blood Urea Nitrogen 10 mg/dL (9-20); Calcium 9.4 mg/dL (8.4-10.2); Carbon Dioxide 25 mmol/L (22-30); Chloride 102 mmol/L (98-107); Glucose 100 mg/dL (74-99); Potassium 4.8 mmol/L (3.5-5.1); Sodium 134 mmol/L (137-145); Total Bilirubin 0.4 mg/dL (0.2-1.3); Total Protein 6.6 g/dL (6.3-8.2)
[2019-05-25] MEDS: FAMOTIDINE 20 MG TAB PO SCH (08:18)
[2019-05-25] MEDS: CLOPIDOGREL 75 MG TAB PO SCH (08:18)
[2019-05-25] MEDS: MULTIVITAMINS, THERA 1 EACH TAB PO SCH (08:18)
[2019-05-25] MEDS: VARENICLINE 1 MG TAB PO SCH ×2 (08:18→19:37)
[2019-05-25] MEDS: ASPIRIN 81 MG PO SCH (08:18)
[2019-05-25] MEDS: METOPROLOL TARTRATE 25 MG TAB PO SCH ×2 (08:18→19:37)
[2019-05-25] MEDS: LISINOPRIL 20 MG TAB PO SCH (08:18)
[2019-05-25] MEDS: HEPARIN SODIUM,PORCINE 5,000 UNIT/ML 1 ML VIAL SQ SCH ×2 (08:18→19:37)
--- NOTE | 2019-05-25 12:13 | XR ---
EXAMINATION TYPE: XR chest 2V DATE OF EXAM: 05/25/2019 COMPARISON: 01/30/2016 TECHNIQUE: PA and lateral views submitted. HISTORY: Cough FINDINGS: The lungs are clear and there is no pneumothorax, pleural effusion, or focal pneumonia. Diffuse emp hysematous changes are seen with an irregular density in the right upper lobe which could be a relate d to neoplastic process. Measures 1.5 cm. IMPRESSION: 1. There is a 1.5 cm irregular density right upper lobe. Recommend CT of the chest to assess for laurent gnancy.. 2. Diffuse COPD.
[2019-05-25] MEDS: HYDROcodone/APAP 5-325MG 1 EACH TAB PO PRN (12:20)
--- NOTE | 2019-05-25 13:16 | P.PN ---
Subjective Progress Note Date: 05/25/19 This is a 58-year-old male with a known past medical history of myocardial infarction 4, coronary disease with previous cardiac stents, CVA, COPD, nicotine dependence and alcohol abuse. Patient was a transfer from [facility]. He initially presented to [facility] with complaints of jose [address] pain and had evidence of acute non-ST elevated myocardial infarction. He underwent a heart catheterization with Dr. Deasi at [facility] and that revealed intermediate to severe disease involving the mid RCA which seems to be in the stent. Patient was then transferred to [facility] to have an FFR of the RCA with Dr. Jiménez. Patient underwent fractional flow reserve of RCA which revealed intermediate to severe in-stent restenosis involving the RCA in the mid portion. Cardiology is recommending medical management. Patient had not been taking medications at home. Beta jose, CHANEL inhibitor, aspirin, Plavix, Lipitor have been started. Patient did have elevated blood pressure yes terday requiring a dose of Norvasc and hydralazine. Blood pressure has improved this morning. Patient still reporting some chest pains but not as severe. Also having occasional shortness of breath. He has been up and ambulating in the room. He denies any nausea or vomiting. Denies any burning with urination or bowel movement changes. Patient does report some mild lower abdominal tenderness but reporting having bowel movements and no difficulty urinating. Nursing staff did give pain medication for left groin pain last night. No evidence of hematoma in the left groin 05/25/2019 patient seen evaluated by cardiology they have cleared him for discharge. Patient had been reporting chest pain on the left side of his chest. Cardiology is aware. The recommending that patient continues with his current medications. He has also been coughing with some sputum production. Chest x- ray has been ordered. Patient also has been requiring the IV Ativan. He's having some confusion tremors in his hands and nausea. No actual vomiting. No further abdominal pain. Reports having bowel movements. Denies any burning with urination. Objective - Vital Signs Vital signs: Vital Signs Temp 98.1 F 05/25/19 08:00 Pulse 93 05/25/19 08:00 Resp 20 05/25/19 08:00 BP 107/62 05/25/19 08:00 Pulse Ox 97 05/25/19 08:00 Intake & Output 05/24/19 05/25/19 05/25/19 18:59 06:59 18:59 Intake Total 480 240 900 Output Total 700 425 400 Balance -220 -185 500 Weight 66.8 kg Intake: Oral 480 240 900 Output: Urine 700 425 400 Other: Voiding Method Urinal # Voids 1 1 2 # Bowel Movements 1 - Exam Head normocephalic Neck supple Lungs clear to auscultation bilaterally no wheezing or crackles Heart regular rate and rhythm S1-S2, no rub or gallop Abdomen is soft nontender nondistended positive bowel sounds no hepatosplenomegaly Extremities no edema Neuro alert and orientated to 2. Patient did not know the year. Tremors present in both hands - Labs CBC & Chem 7: 05/25/19 06:35 05/25/19 06:35 Labs: Abnormal Lab Results - Last 24 Hours (Table) 05/25/19 05/25/19 Range/Units 06:35 06:35 RBC 3.86 L (4.30-5.90) m/uL MCV 106.6 H (80.0-100.0) fL Sodium 134 L (137-145) mmol/L Glucose 100 H (74-99) mg/dL Assessment and Plan Assessment: 1. Acute non-ST elevated myocardial infarction with heart cath at [facility] showing intermediate to severe disease involving the mid RCA which seems to be in the stent. Therefore patient needed to have FFR of the RCA. FFR completed yesterday with Dr. Jiménez showing intermediate to severe in-stent restenosis in volving the RCA in the midportion. FFR was applied and came in to be at 0.82. Cardiology is recommending maximizing medical treatment. Beta jose, CHANEL inhibitor, statin, Plavix and aspirin have been started. Cardiology has cleared patient for discharge 2. History of multiple myocardial infarctions and coronary disease with previous cardiac stents. Patient had been noncompliant with medications at home and had only been taking a baby aspirin 3. History of CVA 4. History of COPD stable 5. Nicotine dependence: Discussed smoking cessation for greater than 5 minutes. Currently on Chantix 6. Alcohol withdrawal: Patient is now showing signs of alcohol withdrawal. Continue the CIWA protocol ATIVAN PRN with thiamine and multivitamin. Alcohol abuse with alcohol intoxication at [facility]. 7. Occluded right common iliac artery with intermittent claudication in the right leg. Cardiology recommending aortogram with runoff down the line 8. Essential hypertension with elevated blood pressures have now resolved. He does have IV hydralazine as needed. 9. Cough: Check chest x-ray GI prophylaxis Pepcid and DVT prophylaxis subcu heparin I performed an examination of the patient and discussed their management with the physician Supervisor Metal Cans. I have reviewed the Physician Supervisor Metal Cans's notes and agree with the documented findings and plan of care
[2019-05-25] MEDS: ATORVASTATIN 80 MG TAB PO SCH (19:37)
[2019-05-25] MEDS: LORazepam 2 MG/ML INJ IV PRN (22:38)
--- NOTE | 2019-05-26 01:11 | PN ---
PROGRESS NOTE Mr. Gordon is doing well. He had FFR by Dr. Jiménez that was performed in the chemical lab supervisor the day before yesterday and no significant abnormality was detected. He had a nonischemic FFR. He is going to be discharged today and will follow with Dr. Jiménez in one week. Vitals are stable. S1/S2 heard normally. Short systolic murmur noted. Lungs are clear. Abdomen and lower extremity exam is unchanged. MMODL / IJN: [id number] /
[2019-05-26] MEDS: LORazepam 2 MG/ML INJ IV PRN (03:01)
[2019-05-26] MEDS: THIAMINE 100 MG TAB PO SCH (06:13)
[2019-05-26 06:57] LABS: Basophils # (A) 0.1 k/uL (0-0.2); Basophils % (A) 1 %; Eosinophils # (A) 0.4 k/uL (0-0.7); Eosinophils % (A) 5 %; HCT 42.5 % (39.0-53.0); HGB 14.1 gm/dL (13.0-17.5); Lymphocytes # (A) 2.4 k/uL (1.0-4.8); Lymphocytes % (A) 29 %; MCH 34.3 pg (25.0-35.0); MCHC 33.1 g/dL (31.0-37.0); MCV 103.7 fL (80.0-100.0); Macrocytosis Slight; Mean Platelet Volume 5.8; Monocytes # (A) 0.5 k/uL (0-1.0); Monocytes % (A) 7 %; Neutrophils # (A) 4.6 k/uL (1.3-7.7); Neutrophils % (A) 56 %; Platelet Count 397 k/uL (150-450); WBC 8.2 k/uL (3.8-10.6)
[2019-05-26 07:13] LABS: ALT 29 U/L (21-72); AST 26 U/L (17-59); African American GFR (CKD) >90 (>60 ml/min/1.73 sqM); Albumin 3.9 g/dL (3.5-5.0); Alkaline Phosphatase 74 U/L (38-126); Anion Gap 11 mmol/L; Blood Urea Nitrogen 13 mg/dL (9-20); Calcium 9.8 mg/dL (8.4-10.2); Carbon Dioxide 24 mmol/L (22-30); Chloride 99 mmol/L (98-107); Glucose 99 mg/dL (74-99); Potassium 4.9 mmol/L (3.5-5.1); Sodium 134 mmol/L (137-145); Total Bilirubin 0.4 mg/dL (0.2-1.3); Total Protein 7.4 g/dL (6.3-8.2)
[2019-05-26 08:12] VITALS: RESP 16
[2019-05-26] MEDS: MULTIVITAMINS, THERA 1 EACH TAB PO SCH (08:31)
[2019-05-26] MEDS: HEPARIN SODIUM,PORCINE 5,000 UNIT/ML 1 ML VIAL SQ SCH (08:31)
[2019-05-26] MEDS: VARENICLINE 1 MG TAB PO SCH (08:31)
[2019-05-26] MEDS: FAMOTIDINE 20 MG TAB PO SCH (08:31)
[2019-05-26] MEDS: LISINOPRIL 20 MG TAB PO SCH (08:31)
[2019-05-26] MEDS: CLOPIDOGREL 75 MG TAB PO SCH (08:31)
[2019-05-26] MEDS: ASPIRIN 81 MG PO SCH (08:31)
[2019-05-26] MEDS: METOPROLOL TARTRATE 25 MG TAB PO SCH (08:31)
[2019-05-26 11:17] VITALS: BP 137/82; PULSE 74; TEMP 97.9
--- NOTE | 2019-05-26 11:49 | P.DS ---
Providers Date of admission: 05/24/19 12:54 Expected date of discharge: 05/26/19 Attending physician: Drew Willams Consults: 05/23/19 18:06 Consult Physician Routine Consulting Provider: Arnulfo Jiménez Consult Reason/Comments: post FFR,cath Do you want consulting provider notified?: Already Contacted Primary care physician: Stated None Hospital Course: Diagnoses on discharge: 1. Acute non-ST elevated myocardial infarction with heart cath at [facility] showing intermediate to severe disease involving the mid RCA which seems to be in the stent. Therefore patient needed to have FFR of the RCA. FFR completed yesterday with Dr. Jiménez showing intermediate to severe in-stent restenosis involving the RCA in the midportion. FFR was applied and came in to be at 0.82. Cardiology is recommending maximizing medical treatment. Beta jose, CHANEL inhibitor, statin, Plavix and aspirin have been started. Cardiology has cleared patient for discharge 2. History of multiple myocardial infarctions and coronary disease with previous cardiac stents. Patient had been noncompliant with medications at home and had only been taking a baby aspirin 3. History of CVA 4. History of COPD stable 5. Nicotine dependence: Discussed smoking cessation for greater than 5 minutes. Currently on Chantix 6. Alcohol withdrawal: Patient is now showing signs of alcohol withdrawal. Continue the CIWA protocol ATIVAN PRN with thiamine and multivitamin. Alcohol abuse with alcohol intoxication at [facility]. 7. Occluded right common iliac artery with intermittent claudication in the right leg. Cardiology recommending aortogram with runoff down the line 8. Essential hypertension with elevated blood pressures have now resolved. He does have IV hydralazine as needed. 9. Cough: chest x-ray done and revealed evidence of COPD and 1.5 cm right upper lobe irregular density suspicious for malignancy, computed tomography scan was recommended, patient counseled about that, however he is very eager to go home, will follow in the office in 3 days and arrange for computed tomography scan of the chest as outpatient Hospital course: This is a 58-year-old male with a known past medical history of myocardial infarction 4, coronary disease with previous cardiac stents, CVA, COPD, nicotine dependence and alcohol abuse. Patient was a transfer from [facility]. He initially presented to [facility] with complaints of chest pain and had evidence of acute non-ST elevated myocardial infarction. He underwent a heart catheterization with Dr. Desai at [facility] and that revealed intermediate to severe disease involving the mid RCA which seems to be in the stent. Patient was then transferred to [facility] to have an FFR of the RCA with Dr. Jiménez. Patient underwent fractional flow reserve of RCA which revealed intermediate to severe in-stent restenosis involving the RCA in the mid portion. Cardiology is recommending medical management. Patient had not been taking medications at home. Beta jose, CHANEL inhibitor, aspirin, Plavix, Lipitor have been started. Patient did have elevated blood pressure yesterday requiring a dose of Norvasc and hydralazine. Blood pressure has improved this morning. Patient still reporting some chest pains but not as severe. Also having occasional shortness of breath. He has been up and ambulating in the room. He denies any nausea or vomiting. Denies any burning with urination or bowel movement changes. Patient does report some mild lower abdominal tenderness but reporting having bowel movements and no difficulty urinating. Nursing staff did give pain medication for left groin pain last night. No evidence of hematoma in the left groin 05/25/2019 patient seen evaluated by cardiology they have cleared him for discharge. Patient had been reporting chest pain on the left side of his chest. Cardiology is aware. The recommending that patient continues with his current medications. He has also been coughing with some sputum production. Chest x- ray has been ordered. Patient also has been requiring the IV Ativan. He's having some confusion tremors in his hands and nausea. No actual vomiting. No further abdominal pain. Reports having bowel movements. Denies any burning with urination. On 05/26/2019 patient was seen and examined on the telemetry floor, he was cleared by cardiology to be discharged home, he has his close on and is very eager to be discharged, he was counseled regarding abnormal chest x-ray reveali ng possible malignancy, however he is very eager to leave the hospital and does not want to stay for a computed tomography scan, will follow in the office on Tuesday and I'll arrange for computed tomography scan of the chest as outpatient, otherwise patient is feeling well he denies any chest pain or shortness of breath at this time. He was counseled in length today about quitting smoking and quit drinking, and importance of taking medications regularly and follow-up with a physician as outpatient. At the time of discharge he was given a prescription for Lipitor, metoprolol, lisinopril, Moreno tix, sublingual nitro, Plavix, Pepcid, multivitamin, Xanax, and [place]. Prolonged counseling done today Will follow in the office on May 29 at 11 AM Plan - Discharge Summary Discharge Rx Participant: Yes New Discharge Prescriptions: New Atorvastatin [Lipitor] 80 mg PO DAILY #90 tab Lisinopril 20 mg PO DAILY #90 tab Metoprolol Tartrate [Lopressor] 25 mg PO BID #180 tablet Clopidogrel Bisulfate [Plavix] 75 mg PO DAILY #30 tab Varenicline [Chantix Continuing Pack] 1 mg PO BID tab Atorvastatin [Lipitor] 80 mg PO HS tab Metoprolol Tartrate [Lopressor] 25 mg PO BID tab Multivitamins, Thera [Multivitamin (formulary)] 1 each PO DAILY tab Nitroglycerin Sl Tabs [Nitrostat] 0.4 mg SUBLINGUAL Q5M PRN tab PRN Reason: Chest Pain HYDROcodone/APAP 5-325MG [[place] 5-325] 1 each PO Q6HR PRN tab PRN Reason: MODERATE Pain Famotidine [Pepcid] 20 mg PO DAILY tab Clopidogrel [Plavix] 75 mg PO DAILY tab ALPRAZolam [Xanax] 0.25 mg PO Q6HR PRN tab PRN Reason: Mild Anxiety Lisinopril [Zestril] 20 mg PO DAILY tab Continue Aspirin 81 mg PO DAILY #30 chew Discharge Medication List Aspirin 81 mg PO DAILY #30 chew 06/12/17 [Rx] Atorvastatin [Lipitor] 80 mg PO DAILY #90 tab 05/25/19 [Rx] Clopidogrel Bisulfate [Plavix] 75 mg PO DAILY #30 tab 05/25/19 [Rx] Lisinopril 20 mg PO DAILY #90 tab 05/25/19 [Rx] Metoprolol Tartrate [Lopressor] 25 mg PO BID #180 tablet 05/25/19 [Rx] ALPRAZolam [Xanax] 0.25 mg PO Q6HR PRN tab 05/26/19 [Rx] Atorvastatin [Lipitor] 80 mg PO HS tab 05/26/19 [Rx] Clopidogrel [Plavix] 75 mg PO DAILY tab 05/26/19 [Rx] Famotidine [Pepcid] 20 mg PO DAILY tab 05/26/19 [Rx] HYDROcodone/APAP 5-325MG [[place] 5-325] 1 each PO Q6HR PRN tab 05/26/19 [Rx] Lisinopril [Zestril] 20 mg PO DAILY tab 05/26/19 [Rx] Metoprolol Tartrate [Lopressor] 25 mg PO BID tab 05/26/19 [Rx] Multivitamins, Thera [Multivitamin (formulary)] 1 each PO DAILY tab 05/26/19 [Rx] Nitroglycerin Sl Tabs [Nitrostat] 0.4 mg SUBLINGUAL Q5M PRN tab 05/26/19 [Rx] Varenicline [Chantix Continuing Pack] 1 mg PO BID tab 05/26/19 [Rx] Follow up Appointment(s)/Referral(s): Drew Willams MD [STAFF PHYSICIAN] - 05/29/19 11:00 am Rosalinda Desai MD [STAFF PHYSICIAN] - 05/28/19 3:15 pm (Tuesday) Patient Instructions/Handouts: *Surgery [facility] - After Heart Catheterization - Lithographic Camera Operator Instructions, Left Heart Catheterization (DC)
--- NOTE | 2019-05-31 07:12 | CDI ---
Documentation Clarification Form Date: 05/31/2019 From: Georgina Barrera Phone: If questions call Sharmila Crump @ [phone], Hours-8:30 am & 5 pm M- F Admit Date: 05/24/2019 12:54:00 PM Patient Name: Ray Gordon Visit Number: [id number] Discharge Date: 05/26/2019 1:14:00 PM ATTENTION: The Clinical Documentation Specialists (CDI) and [facility] Coding Staff appreciate your assistance in clarifying documentation. Please respond to the clarification below the line at the bottom and electronically sign. The CDI & [facility] Coding staff will review the response and follow-up if needed. Please note: Queries are made part of the Legal Health Record. If you have any questions, please contact the author of this message via ITS. Dr. 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 History/Risk Factors: CAD, stenosis of coronary artery stent, MS, alcoholism Doppler/Radiology Reports: none Treatment: probably an aortogram with runoff in the future In your professional opinion, can the cause of the occluded right common artery be further specified? Atherosclerotic Due to stricture or stenosis Embolic Unspecified Other, please specify Unable to determine MTDD
== END 2019-05-26 13:14 | disposition home or self-care (01) | DRG 282 ==
LOC: 3SCARD 10:25 → OBSVTOIN 05-24 12:54
PROVIDERS: ADMIT Internal Medicine; ATTEND Internal Medicine
PROC: 4A023N7 Measurement of Cardiac Sampling and Pressure, Left Heart, Percutaneous Approach (ICD-10-PCS; principal; 2019-05-24)
PROC: 4A033BC Measurement of Arterial Pressure, Coronary, Percutaneous Approach (ICD-10-PCS; 2019-05-24)
DX: T82.855A Stenosis of coronary artery stent, initial encounter (principal); I21.4 Non-ST elevation (NSTEMI) myocardial infarction; I70.211 Atherosclerosis of native arteries of extremities with intermittent claudication, right leg; J44.9 Chronic obstructive pulmonary disease, unspecified; F10.129 Alcohol abuse with intoxication, unspecified; I10 Essential (primary) hypertension; E78.5 Hyperlipidemia, unspecified; I25.10 Atherosclerotic heart disease of native coronary artery without angina pectoris; K21.9 Gastro-esophageal reflux disease without esophagitis; M19.90 Unspecified osteoarthritis, unspecified site; F41.9 Anxiety disorder, unspecified; I25.2 Old myocardial infarction; F17.210 Nicotine dependence, cigarettes, uncomplicated; Z71.6 Tobacco abuse counseling; Z79.82 Long term (current) use of aspirin; Z91.14 Patient's other noncompliance with medication regimen; Z86.14 Personal history of Methicillin resistant Staphylococcus aureus infection; Z87.11 Personal history of peptic ulcer disease; Z87.81 Personal history of (healed) traumatic fracture; Z96.641 Presence of right artificial hip joint; Z86.73 Personal history of transient ischemic attack (TIA), and cerebral infarction without residual deficits; Z86.59 Personal history of other mental and behavioral disorders; Z87.01 Personal history of pneumonia (recurrent); Z98.890 Other specified postprocedural states; Z88.0 Allergy status to penicillin; Y83.1 Surgical operation with implant of artificial internal device as the cause of abnormal reaction of the patient, or of later complication, without mention of misadventure at the time of the procedure; Z82.49 Family history of ischemic heart disease and other diseases of the circulatory system; Z82.5 Family history of asthma and other chronic lower respiratory diseases; Z81.1 Family history of alcohol abuse and dependence; Z83.2 Family history of diseases of the blood and blood-forming organs and certain disorders involving the immune mechanism
CPT/HCPCS: 71046; 80053; 85025; 93454; 93571

== ENCOUNTER 2019-08-25 11:12 | Inpatient (IN) | payer OTHER ==
[2019-08-25] MEDS ORDERED: ASPIRIN 81 MG PO STA (11:44)
[2019-08-25] MEDS ORDERED: SODIUM CHLORIDE 0.9% 1,000 ML IV STA ×2 (11:44→13:53)
[2019-08-25] MEDS ORDERED: NITROGLYCERIN SL TABS 0.4 MG TAB SUBLINGUAL STA ×3 (11:44)
--- NOTE | 2019-08-25 11:51 | ED ---
General Adult HPI - General Chief complaint: Chest Pain Stated complaint: syncope/chest pain Time Seen by Provider: 08/25/19 11:35 Source: patient, RN notes reviewed Mode of arrival: wheelchair Limitations: no limitations - History of Present Illness Initial comments: Patient is a pleasant 58-year-old male presenting to the emergency department with chest discomfort and syncopal episode. Onset of chest discomfort was this morning a few hours ago. Patient was walking during onset of symptoms, no heavy exertion. Patient states discomfort feels like pressure left upper chest. Discomfort remains somewhat severe rated 7/10. Patient does feel somewhat short of breath associated with that and has been sweaty. No nausea. Patient did have a syncopal episode earlier. Patient did strike his head after passing out. Patient states he also hurt his right hip. Patient states he is able to ambulate with pain and limping. Patient does have a history of similar chest discomfort previously associated with heart attack. Patient admits to heavy alc ohol and smoking. - Related Data Previous Rx's Medication Instructions Recorded Aspirin 81 mg PO DAILY #30 chew 06/12/17 Atorvastatin [Lipitor] 80 mg PO DAILY #90 tab 05/25/19 Clopidogrel Bisulfate [Plavix] 75 mg PO DAILY #30 tab 05/25/19 Lisinopril 20 mg PO DAILY #90 tab 05/25/19 Metoprolol Tartrate [Lopressor] 25 mg PO BID #180 tablet 05/25/19 ALPRAZolam [Xanax] 0.25 mg PO Q6HR PRN tab 05/26/19 Atorvastatin [Lipitor] 80 mg PO HS tab 05/26/19 Clopidogrel [Plavix] 75 mg PO DAILY tab 05/26/19 Famotidine [Pepcid] 20 mg PO DAILY tab 05/26/19 HYDROcodone/APAP 5-325MG [[place] 1 each PO Q6HR PRN tab 05/26/19 5-325] Lisinopril [Zestril] 20 mg PO DAILY tab 05/26/19 Metoprolol Tartrate [Lopressor] 25 mg PO BID tab 05/26/19 Multivitamins, Thera [Multivitamin 1 each PO DAILY tab 05/26/19 (formulary)] Nitroglycerin Sl Tabs [Nitrostat] 0.4 mg SUBLINGUAL Q5M PRN tab 10/05/19 Varenicline [Chantix Continuing 1 mg PO BID tab 05/26/19 Pack] Allergies Allergy/AdvReac Type Severity Reaction Status Date / Time Penicillins AdvReac Nausea & Verified 08/25/19 11:23 Vomiting & Diarrhea Review of Systems ROS Statement: Those systems with pertinent positive or pertinent negative responses have been documented in the HPI. ROS Other: All systems not noted in ROS Statement are negative. Constitutional: Denies: fever Eyes: Denies: eye pain ENT: Denies: ear pain Respiratory: Reports: dyspnea. Denies: cough Cardiovascular: Reports: chest pain Endocrine: Denies: fatigue Gastrointestinal: Denies: abdominal pain, nausea Genitourinary: Denies: dysuria Musculoskeletal: Denies: back pain Skin: Denies: rash Neurological: Denies: headache, weakness, confusion Past Medical History Past Medical History: Asthma, Coronary Artery Disease (CAD), Chest Pain / Angina, COPD, CVA/TIA, GERD/Reflux, Hyperlipidemia, Hypertension, Myocardial Infarction (IL), Osteoarthritis (OA), Pneumonia Additional Past Medical History / Comment(s): Hx of 4 IL's last one being on 07/2015, CVA with tunnel vision bilaterally, PUD, precancerous esophageal polyps removed, esophagial ulceration, generalized arthritis, sinus problems, past r hip fracture with surgery, past L lower leg fracture/casted, past R arm fracture/casted, bilateral clavicles fractrued, circumcism. Last Myocardial Infarction Date:: 07/2015 History of Any Multi-Drug Resistant Organisms: MRSA Date of last positivie culture/infection: 2003 MDRO Source:: chin Past Surgical History: Heart Catheterization, Heart Catheterization With Stent, Hernia Repair, Orthopedic Surgery Additional Past Surgical History / Comment(s): Multiple angioplasties/stents, bilateral inguinal hernia repairs, R hip hemiarthroplasty, left elbow ulnar nerve sx, left shoulder rotator cuff repair, EGD with precancerous polypectomy/ulerated esophagus, colonoscopy, bronchoscopy Past Anesthesia/Blood Transfusion Reactions: No Reported Reaction Date of Last Stent Placement:: 07/2015 Past Psychological History: Anxiety, Depression Smoking Status: Current every day smoker Past Alcohol Use History: Occasional Past Drug Use History: None Reported - Past Family History Mother Family Medical History: COPD, Coronary Artery Disease (CAD), Deep Vein Thrombosis (DVT), Hypertension Additional Family Medical History / Comment(s): Back surgery and a Hx of alcohol abuse. Mother is age 76 years. Further hx unknown. Father Family Medical History: Congestive Heart Failure (CHF) Additional Family Medical History / Comment(s): Father at age 53. Hx ETOH abuse. Further HX unknown. General Exam Limitations: no limitations General appearance: alert, in no apparent distress Head exam: Present: normocephalic Eye exam: Present: normal appearance, PERRL, EOMI ENT exam: Present: normal oropharynx, other (Poor dentition) Neck exam: Present: normal inspection. Absent: tenderness Respiratory exam: Present: normal lung sounds bilaterally. Absent: chest wall tenderness Cardiovascular Exam: Present: regular rate, normal rhythm Expanded Peripheral pulses: 2+: Radial (R), Radial (L), Femoral (R), Femoral (L) GI/Abdominal exam: Present: soft. Absent: distended, tenderness, guarding, rebound Extremities exam: Present: tenderness (Right anterior and lateral hip), other (Distally extremity is neurovascularly intact) Back exam: Present: normal inspection. Absent: vertebral tenderness Neurological exam: Present: alert, oriented X3, CN II-XII intact. Absent: motor sensory deficit Psychiatric exam: Present: normal affect, normal mood Skin exam: Present: normal color Course Vital Signs 08/25/19 11:20 Temperature 97.6 F Pulse Rate 106 H Respiratory 18 Rate Blood Pressure 134/45 O2 Sat by Pulse 98 Oximetry EKG Findings - EKG Comments: EKG Findings:: Normal sinus rhythm 100. MO 144. QRS 74. QT 382. QTC 492. Normal axis. Normal QRS. No acute ST change. Medical Decision Making - Medical Decision Making Patient evaluated and resting complain bed. Patient updated on results and plan. No sign case discussed in detail with Dr. Feliciano, who will admit covering for Dr. Willams. Consults will be placed for him as well as cardiology. Patient will be started on IV heparin. IV fluids will be given. - Lab Data Result diagrams: 08/25/19 12:41 08/25/19 12:41 Lab Results 08/25/19 08/25/19 08/25/19 Range/Units 12:41 12:41 12:41 WBC 12.6 H (3.8-10.6) k/uL RBC 4.28 L (4.30-5.90) m/uL Hgb 14.4 (13.0-17.5) gm/dL Hct 43.0 (39.0-53.0) % MCV 100.5 H (80.0-100.0) fL MCH 33.7 (25.0-35.0) pg MCHC 33.5 (31.0-37.0) g/dL RDW 13.3 (11.5-15.5) % Plt Count 379 (150-450) k/uL Neutrophils % 88 % Lymphocytes % 7 % Monocytes % 4 % Eosinophils % 1 % Basophils % 0 % Neutrophils # 11.1 H (1.3-7.7) k/uL Lymphocytes # 0.9 L (1.0-4.8) k/uL Monocytes # 0.4 (0-1.0) k/uL Eosinophils # 0.1 (0-0.7) k/uL Basophils # 0.0 (0-0.2) k/uL PT (9.0-12.0) sec INR (<1.2) APTT (22.0-30.0) sec Sodium 137 (137-145) mmol/L Potassium 4.9 (3.5-5.1) mmol/L Chloride 102 (98-107) mmol/L Carbon Dioxide 13 L (22-30) mmol/L Anion Gap 22 mmol/L BUN 12 (9-20) mg/dL Creatinine 0.58 L (0.66-1.25) mg/dL Est GFR (CKD-EPI)AfAm >90 (>60 ml/min/1.73 sqM) Est GFR (CKD-EPI)NonAf >90 (>60 ml/min/1.73 sqM) Glucose 76 (74-99) mg/dL Plasma Lactic Acid Cristopher (0.7-2.0) mmol/L Calcium 9.8 (8.4-10.2) mg/dL Magnesium 1.8 (1.6-2.3) mg/dL Total Bilirubin 1.4 H (0.2-1.3) mg/dL AST 145 H (17-59) U/L ALT 36 (4-49) U/L Alkaline Phosphatase 107 (38-126) U/L Creatine Kinase 6080 H* (55-170) U/L CK-MB (CK-2) 57.4 H (0.0-2.4) ng/mL Troponin I 0.122 H* (0.000-0.034) ng/mL Total Protein 8.7 H (6.3-8.2) g/dL Albumin 4.9 (3.5-5.0) g/dL Amylase 122 H (30-110) U/L Lipase 67 (23-300) U/L 08/25/19 08/25/19 Range/Units 12:41 12:41 WBC (3.8-10.6) k/uL RBC (4.30-5.90) m/uL Hgb (13.0-17.5) gm/dL Hct (39.0-53.0) % MCV (80.0-100.0) fL MCH (25.0-35.0) pg MCHC (31.0-37.0) g/dL RDW (11.5-15.5) % Plt Count (150-450) k/uL Neutrophils % % Lymphocytes % % Monocytes % % Eosinophils % % Basophils % % Neutrophils # (1.3-7.7) k/uL Lymphocytes # (1.0-4.8) k/uL Monocytes # (0-1.0) k/uL Eosinophils # (0-0.7) k/uL Basophils # (0-0.2) k/uL PT 10.5 (9.0-12.0) sec INR 1.0 (<1.2) APTT 24.1 (22.0-30.0) sec Sodium (137-145) mmol/L Potassium (3.5-5.1) mmol/L Chloride (98-107) mmol/L Carbon Dioxide (22-30) mmol/L Anion Gap mmol/L BUN (9-20) mg/dL Creatinine (0.66-1.25) mg/dL Est GFR (CKD-EPI)AfAm (>60 ml/min/1.73 sqM) Est GFR (CKD-EPI)NonAf (>60 ml/min/1.73 sqM) Glucose (74-99) mg/dL Plasma Lactic Acid Cristopher 4.0 H* (0.7-2.0) mmol/L Calcium (8.4-10.2) mg/dL Magnesium (1.6-2.3) mg/dL Total Bilirubin (0.2-1.3) mg/dL AST (17-59) U/L ALT (4-49) U/L Alkaline Phosphatase (38-126) U/L Creatine Kinase (55-170) U/L CK-MB (CK-2) (0.0-2.4) ng/mL Troponin I (0.000-0.034) ng/mL Total Protein (6.3-8.2) g/dL Albumin (3.5-5.0) g/dL Amylase (30-110) U/L Lipase (23-300) U/L - Radiology Data Radiology results: report reviewed (Computed tomography scan of the brain shows old infarct. No acute intercranial abnormality. CT angios chest is somewhat limited. No large central lower lobar pulmonary embolism. Aorta without acute abnormality.Hyaline lymph nodes and subpleural density.), image reviewed (X-ray right hip and pelvis shows right samanta-arthropathy. Some underlying degenerative change.) Critical Care Time Critical Care Time: Yes Total Critical Care Time: 34 Disposition Clinical Impression: Acute non-ST elevation myocardial infarction (NSTEMI), Syncope, Rhabdomyolysis Disposition: ADMITTED IP TO THIS [facility] Condition: Serious Is patient prescribed a controlled substance at d/c from ED?: No Referrals: Drew Willams MD [Primary Care Provider] - 1-2 days Decision Time: 13:59
[2019-08-25 13:02] LABS: Basophils % (A) 0 %; Eosinophils # (A) 0.1 k/uL (0-0.7); Eosinophils % (A) 1 %; HGB 14.4 gm/dL (13.0-17.5); Lymphocytes # (A) 0.9 k/uL (1.0-4.8); Lymphocytes % (A) 7 %; MCH 33.7 pg (25.0-35.0); MCHC 33.5 g/dL (31.0-37.0); MCV 100.5 fL (80.0-100.0); Mean Platelet Volume 7.3; Monocytes # (A) 0.4 k/uL (0-1.0); Monocytes % (A) 4 %; Neutrophils # (A) 11.1 k/uL (1.3-7.7); Neutrophils % (A) 88 %; Platelet Count 379 k/uL (150-450); RBC 4.28 m/uL (4.30-5.90); RDW 13.3 % (11.5-15.5); WBC 12.6 k/uL (3.8-10.6)
--- NOTE | 2019-08-25 13:04 | XR ---
EXAMINATION TYPE: AP view pelvis and 2 views right hip DATE OF EXAM: 08/25/2019 COMPARISON: 03/19/2018. HISTORY: 58-year-old male with fall and pain FINDINGS: Right hemiarthroplasty. There seems to be some ely shoshone acetabular cartilage narrowing. Heterotopic oss ification along the superior aspect of the right hip is nearly bridging. Similar to 03/19/2018. Mild t o moderate superolateral left hip joint space narrowing with marginal spurring. Sutures within the pe lvis. No acute fracture or dislocation identified. IMPRESSION: 1. Right hip hemiarthroplasty. There seems to be some underlying degenerative cartilage loss along th e ely shoshone acetabulum. 2. [id number] left hip OA. 3. No acute osseous abnormality seen.
[2019-08-25 13:14] LABS: ALT 36 U/L (4-49); AST 145 U/L (17-59); African American GFR (CKD) >90 (>60 ml/min/1.73 sqM); Albumin 4.9 g/dL (3.5-5.0); Alkaline Phosphatase 107 U/L (38-126); Amylase 122 U/L (30-110); Anion Gap 22 mmol/L; Blood Urea Nitrogen 12 mg/dL (9-20); Calcium 9.8 mg/dL (8.4-10.2); Carbon Dioxide 13 mmol/L (22-30); Chloride 102 mmol/L (98-107); Glucose 76 mg/dL (74-99); Magnesium 1.8 mg/dL (1.6-2.3); Non-African American GFR(CKD) >90 (>60 ml/min/1.73 sqM); Partial Thromboplastin Time 24.1 sec (22.0-30.0); Potassium 4.9 mmol/L (3.5-5.1); Prothrombin Time 10.5 sec (9.0-12.0); Sodium 137 mmol/L (137-145); Total Bilirubin 1.4 mg/dL (0.2-1.3); Total Protein 8.7 g/dL (6.3-8.2)
--- NOTE | 2019-08-25 13:29 | CT ---
EXAMINATION TYPE: CT brain wo con DATE OF EXAM: 08/25/2019 COMPARISON: 06/04/2013 HISTORY: 58-year-old male with syncope TECHNIQUE: Examination was done in axial plane without intravenous contrast. Coronal and sagittal r econstructions performed. CT DLP: 1213 mGycm Automated exposure control for dose reduction was used. FINDINGS: There is no evidence of acute intracranial hemorrhage, acute ischemic changes, mass, mass-effect, or extra-axial fluid collection. There is no effacement of cerebral sulci or basal subarachnoid cister ns. There is no hydrocephalus. There is no midline shift. Alegria-white matter distinction is preserv ed. Large area of encephalomalacia right occipital lobe unchanged from 2013. Old lacunar infarcts bilater al basal ganglia. Mild generalized cerebral cortical atrophy. Moderate mucosal thickening floor of the left maxillary sinus and scattered mild mucosal thickening e thmoid air cells. Mastoid air cells are well pneumatized. Orbits and globes are intact. IMPRESSION: Stable old bilateral basal ganglionic lacunar infarcts and old encephalomalacia involving the right o ccipital lobe related to prior infarct. No acute intracranial abnormality seen.
[2019-08-25 13:36] LABS: Creatine Kinase 6080 U/L (55-170)
[2019-08-25 13:37] LABS: Creatine Kinase MB 57.4 ng/mL (0.0-2.4)
--- NOTE | 2019-08-25 13:40 | CT ---
EXAMINATION TYPE: CT angio chest DATE OF EXAM: 08/25/2019 COMPARISON: 01/30/2016 HISTORY: 58-year-old male chest pain and syncope TECHNIQUE: Contiguous axial scanning of the chest performed with IV Contrast, patient injected with 1 00 mL of Isovue 370. Coronal and sagittal MIP reconstructions performed. CT DLP: 332.4 mGycm Automated exposure control for dose reduction was used. FINDINGS: Heart normal size without pericardial effusion. Three-vessel coronary artery calcifications are prese nt. No flattening of the interventricular septum or reflux of contrast into the hepatic veins. Aorta normal caliber with mild atherosclerotic arch calcifications. There may be moderate atheroscler otic narrowing at the origin of the left common carotid artery. Borderline enlarged caliber to the main pulmonary arteries measuring up to 2.5 cm on the right may re flect underlying pulmonary arterial hypertension. While there is satisfactory opacification of the pu lmonary artery system, the patient is breathing causing extensive heterogeneity of the pulmonary shweta rial system. No large central or lobar pulmonary embolus. Many of the segmental, subsegmental and mor e distal arterial branches are nondiagnostic. Asymmetric left greater than right gynecomastia. There is a new low 1.9 cm right tracheobronchial angle lymph node and 2.0 cm right hilar nodule. Advanced centrilobular emphysema. 7 mm subpleural pulmonary nodule along the medial aspect of the right upper lobe, axial image 55. Irregular subpleural opacity peripheral right upper lobe measures 1.7 x 0.9 cm, axial image 54, 55, 5 6. No consolidation or pleural effusion. Dependent atelectasis. Tiny hiatal hernia. Hepatic steatosis. 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 N o osseous destructive process. IMPRESSION: 1. BREATHING MOTION ARTIFACT DEGRADES THE EXAM. NO LARGE CENTRAL OR LOBAR BRANCH PULMONARY EMBOLUS. Many of the segmental and more distal arterial branches are nondiagnostic and emboli in these locatio ns cannot be excluded on the basis of this exam. 2. COPD with advanced emphysema. 3. New 1.9 cm right tracheobronchial angle and 2.0 cm right hilar lymph nodes. Subpleural right upper lobe densities measure 1.7 x 0.9 cm and 7 mm. Neoplasm not excluded at this time. Pulmonary referral recommended for further follow-up and management. 4. CAD. 5. Tiny hiatal hernia and hepatic steatosis.
[2019-08-25 13:44] LABS: Troponin I 0.122 ng/mL (0.000-0.034)
[2019-08-25] MEDS ORDERED: HEPARIN SODIUM,PORCINE 5,000 UNIT/ML 1 ML VIAL IV ONE (13:53)
[2019-08-25] MEDS ORDERED: HEPARIN SODIUM,PORCINE 5,000 UNIT/ML 1 ML VIAL IV PRN (13:53)
[2019-08-25] MEDS ORDERED: NITROGLYCERIN SL TABS 0.4 MG TAB SUBLINGUAL PRN (14:00)
[2019-08-25] MEDS: HEPARIN SOD,PORK IN 0.45% NACL 25,000 UNIT in 0.45% NACL 1 250ML.BAG IV SCH (14:07)
[2019-08-25] MEDS: MORPHINE SULFATE 2 MG/ML SYRINGE IVP PRN (17:42)
[2019-08-25] MEDS: NITROGLYCERIN OINT 1 INCH/GM PACKET TOPICAL SCH ×2 (17:42→23:42)
[2019-08-25 18:51] LABS: Creatine Kinase MB 52.1 ng/mL (0.0-2.4)
[2019-08-25 19:04] LABS: Troponin I 0.173 ng/mL (0.000-0.034)
[2019-08-26 02:07] LABS: Creatine Kinase MB 39.5 ng/mL (0.0-2.4)
[2019-08-26 02:13] LABS: Troponin I 0.185 ng/mL (0.000-0.034)
[2019-08-26 06:47] LABS: Basophils # (A) 0.1 k/uL (0-0.2); Basophils % (A) 1 %; Eosinophils # (A) 0.1 k/uL (0-0.7); Eosinophils % (A) 1 %; HCT 37.1 % (39.0-53.0); HGB 12.3 gm/dL (13.0-17.5); Lymphocytes # (A) 1.7 k/uL (1.0-4.8); Lymphocytes % (A) 26 %; MCH 33.2 pg (25.0-35.0); MCHC 33.1 g/dL (31.0-37.0); MCV 100.4 fL (80.0-100.0); Macrocytosis Slight; Mean Platelet Volume 7.3; Monocytes # (A) 0.3 k/uL (0-1.0); Monocytes % (A) 5 %; Neutrophils # (A) 4.5 k/uL (1.3-7.7); Neutrophils % (A) 66 %; Platelet Count 297 k/uL (150-450); RDW 13.4 % (11.5-15.5); WBC 6.7 k/uL (3.8-10.6)
[2019-08-26] MEDS: NITROGLYCERIN OINT 1 INCH/GM PACKET TOPICAL SCH ×4 (07:00→23:34)
[2019-08-26 07:04] LABS: Cholesterol 193 mg/dL (<200); HDL Cholesterol 61 mg/dL (40-60); LDL Cholesterol,Calculated 120 mg/dL (0-99); Triglycerides 62 mg/dL (<150)
--- NOTE | 2019-08-26 08:13 | P.CRDCN ---
History of Present Illness Consult date: 08/26/19 Requesting physician: Drew Willams Consult reason: sycope, chest pain Chief complaint: chest pain, syncope History of present illness: This is a 58-year-old gentleman with known history of coronary artery disease and prior stent placement of the right coronary artery, prior stenting of the LAD, in May 2017 patient underwent a cardiac catheterization with subsequent stenting of the LAD at that time and most recently the patient underwent an FFR by Dr. Maravilla in May of last year, he had presented at that time to [facility] with a non-STEMI, the FFR revealed int ermediate to severe in-stent restenosis involving the RCA in the midportion, FFR was applied and came back to be 0.8-70 medical therapy was advised at that time. He was also advised at that time that he may need an aortogram with runoff down the line because of an occluded right common iliac artery and patient has intermittent claudication of that right leg.History of hypertension, hyperlipidemia, nicotine dependence, and alcohol use. Patient presents to the hospital on this occasion with symptoms of chest discomfort and subsequent syncopal episode. According to the patient he's been having frequent episodes of chest discomfort at home that reminded him of his heart attacks in the past. Overall the patient states she has just not been feeling well. He's been somewhat lightheaded and dizzy. He states that prior to coming to the hospital, he was walking and without warning passed out and fell to the floor. He did hit his hip hard onto the floor and also hit the back of his head. An x-ray of the right hip and pelvis was performed which revealed a previous right hip hemiarthroplasty with some underlying degenerative change, mild to moderate left hip osteoarthritis and no acute process seen. CAT scan of the brain was also performed which revealed stable old bilateral basal ganglionic the sooner infarcts and old encephalomalacia involving the right subtotal lobe related to a prior infarct, no acute abnormality seen. CTA of the chest was performed which revealed breathing motion artifact which degraded the exam, no large central or lobar branch pulmonary embolism seen here at many of the subsegmental and distal artery branches were nondiagnostic and emboli cannot be excluded. COPD with advanced emphysema.0.9 cm right tracheobronchial angle and 2 cm right hilar lymph nodes noted subpleural right upper lobe densities measuring 1.7 x 0.9 cm. Neoplasm cannot be excluded at this time and a pulmonary evaluation and referral has been recommended. No chest x-ray performed. Blood pressure 137/70, heart rate in the 70s, afebrile. EKG on presentation here showed a normal sinus rhythm with no acute changes noted. White blood cell count 12.6 on admission, hemoglobin 14.4, platelet count 379. Sodium 137, potassium 4.9, BUN 12, creatinine 0.5. Total bilirubin 1.4 AST 145 ALT 36 CK 6224, 6448, 6080. Troponin 0.12, 0.17, 0.18. At the time of my examination this morning, patient is complaining of some right hip discomfort, he denies any chest pain this morning no dizziness or lightheadedness. Past Medical History Past Medical History: Asthma, Coronary Artery Disease (CAD), Chest Pain / Angina, COPD, CVA/TIA, GERD/Reflux, Hyperlipidemia, Hypertension, Myocardial Infarction (WA), Osteoarthritis (OA), Pneumonia Additional Past Medical History / Comment(s): Hx of 4 WA's last one being on 07/2015, CVA with tunnel vision bilaterally, PUD, precancerous esophageal polyps removed, esophagial ulceration, generalized arthritis, sinus problems, past r hip fracture with surgery, past L lower leg fracture/casted, past R arm fracture/casted, bilateral clavicles fractrued, circumcism. Last Myocardial Infarction Date:: 07/2015 History of Any Multi-Drug Resistant Organisms: MRSA Date of last positivie culture/infection: 2003 MDRO Source:: chin Past Surgical History: Heart Catheterization, Heart Catheterization With Stent, Hernia Repair, Orthopedic Surgery Additional Past Surgical History / Comment(s): Multiple angioplasties/stents, bilateral inguinal hernia repairs, R hip hemiarthroplasty, left elbow ulnar nerve sx, left shoulder rotator cuff repair, EGD with precancerous polypectomy/ulerated esophagus, colonoscopy, bronchoscopy Past Anesthesia/Blood Transfusion Reactions: No Reported Reaction Date of Last Stent Placement:: 07/2015 Smoking Status: Current every day smoker - Past Family History Mother Family Medical History: COPD, Coronary Artery Disease (CAD), Deep Vein Thrombosis (DVT), Hypertension Additional Family Medical History / Comment(s): Back surgery and a Hx of alcohol abuse. Mother is age 76 years. Further hx unknown. Father Family Medical History: Congestive Heart Failure (CHF) Additional Family Medical History / Comment(s): Father at age 53. Hx ETOH abuse. Further HX unknown. Medications and Allergies Home Medications Medication Instructions Recorded Confirmed Type Nitroglycerin Sl Tabs [Nitrostat] 0.4 mg SUBLINGUAL Q5M PRN tab 05/26/19 0 08/25/19 Rx Allergies Allergy/AdvReac Type Severity Reaction Status Date / Time Penicillins AdvReac Nausea & Verified 08/25/19 14:20 Vomiting & Diarrhea Physical Exam Vitals: Vital Signs Temp Pulse Pulse Resp BP BP Pulse Ox 08/26/19 04:35 98.2 F 76 16 137/71 95 08/25/19 23:45 98.4 F 79 18 137/63 97 08/25/19 20:40 98.3 F 85 18 120/74 97 08/25/19 15:48 18 08/25/19 15:20 98.5 F 92 18 152/83 96 08/25/19 15:00 97.8 F 98 18 136/84 96 08/25/19 14:30 105 H 16 123/61 99 08/25/19 14:00 103 H 20 156/78 95 08/25/19 13:59 98 20 156/78 97 08/25/19 12:30 103 H 103 H 20 147/80 08/25/19 12:00 101 H 08/25/19 11:42 105 H 08/25/19 11:20 97.6 F 106 H 18 134/45 98 Intake and Output 08/25/19 08/26/19 08/26/19 22:59 06:59 14:59 Intake Total 240 Output Total 300 200 Balance -60 -200 Intake: Oral 240 Output: Urine 300 200 Other: Voiding Method Urinal Urinal Weight 70.307 kg 70.4 kg PHYSICAL EXAMINATION: 58-year-old gentleman in no acute distress at the time of my examination HEENT: Head is atraumatic, normocephalic. Pupils equal, round. Neck is supple. There is no elevated jugular venous pressure. HEART EXAMINATION: Heart S1, S2 normal. No murmur or gallop heard. CHEST EXAMINATION: Lungs reveal fine wheezing throughout . No chest wall tenderness is noted on palpation or with deep breathing. ABDOMEN: Soft, nontender. Bowel sounds are heard. No organomegaly noted. Right groin soft, no evidence of any hematoma. EXTREMITIES: 1+ peripheral pulses with no evidence of peripheral edema and no calf tenderness noted. NEUROLOGIC patient is awake, alert and oriented X3. Results 08/26/19 05:55 08/26/19 05:55 Cardiac Enzymes 08/25/19 08/25/19 08/25/19 Range/Units 12:41 12:41 17:56 AST 145 H (17-59) U/L CK-MB (CK-2) 57.4 H 52.1 H (0.0-2.4) ng/mL Troponin I 0.122 H* 0.173 H* (0.000-0.034) ng/mL 08/26/19 Range/Units 01:16 AST (17-59) U/L CK-MB (CK-2) 39.5 H (0.0-2.4) ng/mL Troponin I 0.185 H* (0.000-0.034) ng/mL Coagulation 08/25/19 08/25/19 08/26/19 Range/Units 12:41 19:52 05:55 PT 10.5 (9.0-12.0) sec APTT 24.1 49.3 H 39.8 H (22.0-30.0) sec Lipids 08/26/19 Range/Units 05:55 Triglycerides 62 (<150) mg/dL Cholesterol 193 (<200) mg/dL HDL Cholesterol 61 H (40-60) mg/dL CBC 08/25/19 08/26/19 Range/Units 12:41 05:55 WBC 12.6 H 6.7 (3.8-10.6) k/uL RBC 4.28 L 3.70 L (4.30-5.90) m/uL Hgb 14.4 12.3 L (13.0-17.5) gm/dL Hct 43.0 37.1 L (39.0-53.0) % Plt Count 379 297 (150-450) k/uL Comprehensive Metabolic Panel 08/25/19 Range/Units 12:41 Sodium 137 (137-145) mmol/L Potassium 4.9 (3.5-5.1) mmol/L Chloride 102 (98-107) mmol/L Carbon Dioxide 13 L (22-30) mmol/L BUN 12 (9-20) mg/dL Creatinine 0.58 L (0.66-1.25) mg/dL Glucose 76 (74-99) mg/dL Calcium 9.8 (8.4-10.2) mg/dL AST 145 H (17-59) U/L ALT 36 (4-49) U/L Alkaline Phosphatase 107 (38-126) U/L Total Protein 8.7 H (6.3-8.2) g/dL Albumin 4.9 (3.5-5.0) g/dL Current Medications Generic Name Dose Route Start Last Admin Trade Name Freq PRN Reason Stop Dose Admin Aspirin 325 mg 08/26/19 09:00 Aspirin PO DAILY [facility] Heparin Sodium (Porcine) 0 unit 08/25/19 13:53 Heparin IV PER PROTOCOL PRN Low PTT Protocol Heparin Sodium/Sodium Chloride 250 mls @ 8.437 mls/hr 08/25/19 14:00 08/25/19 14:07 25,000 unit/ Sodium Chloride IV 12 units/kg/hr .Q24H LINDA 8.437 mls/hr Administration Protocol 12 UNITS/KG/HR Morphine Sulfate 2 mg 08/25/19 16:48 08/25/19 17:42 Morphine Sulfate (Inj) IVP 2 mg Q2H PRN Administration Pain/Discomfort Nitroglycerin 0.4 mg 08/25/19 14:00 Nitrostat SUBLINGUAL Q5M PRN Chest Pain Nitroglycerin 1 inch 08/25/19 18:00 08/26/19 07:00 Nitro-Bid Oint TOPICAL 1 inch Q6HR [facility] Administration Intake and Output 08/25/19 08/26/19 08/26/19 22:59 06:59 14:59 Intake Total 240 Output Total 300 200 Balance -60 -200 Intake: Oral 240 Output: Urine 300 200 Other: Voiding Method Urinal Urinal Weight 70.307 kg 70.4 kg 08/26/19 05:55 08/25/19 12:41 EKG Interpretations (text) EKG shows normal sinus rhythm with no acute changes. Assessment and Plan Plan: Assessment and plan #1 chest discomfort with associated dizziness and subsequent syncope. Rule out possible acute coronary syndrome. Troponins 0.12, 0.17, 0.18. EKG shows normal sinus rhythm with no acute changes. #2 known history of coronary artery disease with prior RCA and LAD stenting, most recent stent was placed in July of 2017 to the ostial and mid LAD. Patient underwent an FFR in May 2019 after presenting to [facility] with a non-STEMI, he was found to have severe disease involving the mid RCA which seemed to be in-stent, FFR came back to be 0.8 and maximal medical therapy advised at that time. #3 hypertension #4 hyperlipidemia #5 nicotine dependence #6 EtOH use #7 mildly abnormal liver functions #8 elevated CK, likely secondary to fall Plan We will obtain a repeat echocardiogram with Doppler study. Patient did have an echo performed in May 2019 which revealed an ejection fraction of 50-55% at that time. We will check orthostatic heart rate and blood pressure every shift, continue to monitor for any significant arrhythmias. Decrease aspirin to 81 mg daily, continue IV heparin, continue Nitropaste. Start the patient on a statin as well as beta jose. Continue hydration, patient will require a cardiac catheterization, we will follow his course here and determine the timing of that. Further recommendations to follow. DNP note has been reviewed, I agree with a documented findings and plan of care. Patient was seen and examined.
[2019-08-26] MEDS ORDERED: ASPIRIN 325 MG TAB PO SCH (09:00)
[2019-08-26] MEDS: METOPROLOL TARTRATE 25 MG TAB PO SCH (09:47)
[2019-08-26] MEDS: ASPIRIN 81 MG PO SCH (09:47)
[2019-08-26] MEDS: ATORVASTATIN 80 MG TAB PO SCH (09:47)
[2019-08-26 11:49] LABS: ALT 35 U/L (4-49); AST 165 U/L (17-59); African American GFR (CKD) >90 (>60 ml/min/1.73 sqM); Albumin 3.2 g/dL (3.5-5.0); Alkaline Phosphatase 62 U/L (38-126); Anion Gap 7 mmol/L; Blood Urea Nitrogen 15 mg/dL (9-20); Calcium 8.7 mg/dL (8.4-10.2); Carbon Dioxide 22 mmol/L (22-30); Chloride 105 mmol/L (98-107); Glucose 85 mg/dL (74-99); Magnesium 1.9 mg/dL (1.6-2.3); Non-African American GFR(CKD) >90 (>60 ml/min/1.73 sqM); Phosphorus 2.4 mg/dL (2.5-4.5); Potassium 4.1 mmol/L (3.5-5.1); Sodium 134 mmol/L (137-145); Total Bilirubin 1.4 mg/dL (0.2-1.3); Total Protein 6.4 g/dL (6.3-8.2)
--- NOTE | 2019-08-26 12:05 | HP ---
HISTORY AND PHYSICAL HISTORY OF PRESENT ILLNESS: The patient is a 58-year-old male with a significant past medical history for an ID times 4, CAD with previous stents and states he was walking yesterday, had not been feeling well for a few days so he thought if he took a walk he may feel better. During his walk he got dizzy and states boom, fell right on my butt. The patient does state that he had a brief loss of consciousness. When he woke up he was scared and got up and went to the nearest hotel room where he chilled out for while, which was probably a 4 or 5 hour window although patient is not positive of that. Then patient walked to the ER at [facility]. Patient does say before he had the syncopal episode he did have chest pain with shortness of breath, felt sweaty. Denied any nausea at the time. PAST MEDICAL HISTORY: Significant for ID x4, CAD with stents, CVA, COPD, nicotine dependence, alcohol abuse, asthma, GERD, hyperlipidemia, hypertension, osteoarthritis, pneumonia, peptic ulcer disease, esophageal ulceration, arthritis, sinus problems, right hip fracture with repair, left lower leg fracture with repair and right arm fracture with repair. PAST SURGICAL HISTORY: Significant for multiple heart caths with stents, hernia repairs, and orthopedic surgeries as previously mentioned. ALLERGIES: Include PENICILLIN. MEDICATIONS: Patient takes at home include nitroglycerin tablets 0.4 mg sublingual q.5 hours minutes p.r.n. FAMILY HISTORY: Mother is alive with a history of COPD, CAD, DVT and hypertension. Father at the age of 53 from CHF. SOCIAL HISTORY: Patient does have a history of smoking 1-1/2 packs per day or more for over 43 years. The patient states that he drinks alcohol on the weekends. Does not drink liquor, just beer. Denies any illicit drug use. Patient is retired, worked for [employer]. REVIEW OF SYSTEMS: GENERAL: Positive for chills. Denies any fever. Denies any weight change. HEENT: Positive for headache and dizziness with blurred vision. The patient denies any difficulty hearing. Denies rhinitis. Denies any sore throat or difficulty swallowing. RESPIRATORY: Positive for shortness of breath and cough, productive. Patient states sputum is green. CARDIOVASCULAR: Positive for chest pain, continues to occur intermittently. GI: Positive for nausea. The patient denies any vomiting. Denies any abdominal pain. Denies any diarrhea or constipation. : Negative for dysuria or hematuria. ENDOCRINE: Negative for diabetes mellitus or thyroid disease. MUSCULOSKELETAL: Positive for osteoarthritis. NEUROLOGIC: Positive for seizures years ago according to patient, and patient does admit going through DTs in the past. PSYCHIATRIC: Positive for anxiety and depression. PHYSICAL EXAM: GENERAL: Slightly disheveled 58-year-old male seen lying in bed, awake, alert, appropriate, cooperative. VITAL SIGNS: Temp 98, heart rate 82, respiratory rate 18, blood pressure is 138/89, O2 sats 96% on room air. HEENT: Head is normocephalic, atraumatic. Pupils equal, round, react to light. Ears and nose, no discharge is noted. Mouth with poor oral hygiene. Moist mucous membranes. No pharyngeal erythema is noted. NECK: Supple. Trachea is midline. No lymphadenopathy. LUNGS: Diminished with scattered expiratory wheeze. HEART: S1, S2 heard. Not tachycardic. ABDOMEN: Soft. Bowel sounds are positive. EXTREMITIES: With no edema. NEUROLOGIC: Patient is awake and alert. LABS: White count is 6.7, hemoglobin is 12.3, hematocrit is 37.1 with 297,000 platelets. Lactic acid venous was 1.1. CK 6448, CK-MB 52.1. Troponin 0.173. Triglycerides 62, cholesterol 193, LDL cholesterol 120, HDL 61. IMAGING: X-ray of pelvis and right hip shows right hip hemiarthroplasty with underlying degenerative cartilage loss along the [place] acetabulum with [id number] left hip OA. No acute osseous abnormalities seen. Brain CT, stable old bilateral basal ganglionic lacunar infarcts and old encephalomalacia involving the right occipital lobe related to prior infarct. No acute intracranial abnormality is seen. chest CTA, breathing motion artifact degrades the exam. No large central or lobar branch pulmonary embolus, COPD with advanced emphysema. New 1.9 cm right tracheobronchial angle and 2 cm right hilar lymph nodes. Subpleural right upper lobe densities measure 1.7 x 0.9 cm and 7 mm. Neoplasm not excluded at this time. Pulmonary referral recommended for further followup and management CAD, tiny hiatal hernia and hepatic steatosis. IMPRESSION: 1. acute non ST-elevation ID. 2. Syncope. 3. Rhabdomyolysis. 4. History of multiple myocardial infarctions and coronary artery disease with previous stents. It appears patient has been noncompliant with medications. The only home medication listed is nitroglycerin sublingual. 5. History of chronic obstructive pulmonary disease, stable. 6. History of cerebrovascular accident. 7. Nicotine dependence. 8. Alcohol abuse. 9. Hypertension. 10.History of osteoarthritis. PLAN: The patient will be maintained on heparin drip with Lopressor 25 mg p.o. daily, morphine sulfate 2 mg IV q.2 hours p.r.n. pain, nitroglycerin 0.4 mg sublingual q.5 minutes p.r.n. pain, Nitro-Bid ointment 1 inch topically q.6 hours scheduled. Will be maintained on IV fluids 0.9 normal saline at 100 mL per hour. Will add Protonix 40 mg IV daily for GI prophylaxis as patient is currently n.p.o. awaiting cardiology evaluation. Smoking cessation is highly recommended. The patient will be monitored for DTs and will add CIWA scale. Pulmonary to be consulted for the abnormal CT. Repeat labs in the a.m. and will follow patient closely making further changes as necessary. MMODL / IJN: [id number] /
[2019-08-26] MEDS: SODIUM CHLORIDE 0.9% 1,000 ML IV SCH ×2 (14:54→23:35)
[2019-08-26] MEDS: 1: MVI, ADULT NO.4 WITH VIT K 10 ML, THIAMINE 100 MG, FOLIC ACID 1 MG in SODIUM CHLORIDE IV SCH ×4 (14:55)
[2019-08-26] MEDS: PANTOPRAZOLE 40 MG/10 ML VIAL IVP SCH (14:55)
[2019-08-26] MEDS: HEPARIN SOD,PORK IN 0.45% NACL 25,000 UNIT in 0.45% NACL 1 250ML.BAG IV SCH (15:07)
[2019-08-26] MEDS: MORPHINE SULFATE 2 MG/ML SYRINGE IVP PRN ×2 (19:39→23:37)
[2019-08-27] MEDS: MORPHINE SULFATE 2 MG/ML SYRINGE IVP PRN ×4 (05:43→21:09)
[2019-08-27] MEDS: NITROGLYCERIN OINT 1 INCH/GM PACKET TOPICAL SCH ×3 (05:43→21:09)
[2019-08-27 06:28] LABS: Basophils # (A) 0.1 k/uL (0-0.2); Basophils % (A) 1 %; Eosinophils # (A) 0.1 k/uL (0-0.7); Eosinophils % (A) 3 %; HCT 36.6 % (39.0-53.0); HGB 12.5 gm/dL (13.0-17.5); Lymphocytes # (A) 1.6 k/uL (1.0-4.8); Lymphocytes % (A) 31 %; MCH 34.2 pg (25.0-35.0); MCHC 34.1 g/dL (31.0-37.0); MCV 100.4 fL (80.0-100.0); Mean Platelet Volume 7.7; Monocytes # (A) 0.3 k/uL (0-1.0); Monocytes % (A) 6 %; Neutrophils % (A) 57 %; Platelet Count 239 k/uL (150-450); RBC 3.64 m/uL (4.30-5.90); RDW 13.2 % (11.5-15.5); WBC 5.2 k/uL (3.8-10.6)
[2019-08-27] MEDS: ASPIRIN 81 MG PO SCH (08:39)
[2019-08-27] MEDS: ATORVASTATIN 80 MG TAB PO SCH (08:39)
[2019-08-27] MEDS: METOPROLOL TARTRATE 25 MG TAB PO SCH (08:39)
[2019-08-27] MEDS: PANTOPRAZOLE 40 MG/10 ML VIAL IVP SCH (08:39)
[2019-08-27 09:14] LABS: ALT 36 U/L (4-49); AST 123 U/L (17-59); African American GFR (CKD) >90 (>60 ml/min/1.73 sqM); Alkaline Phosphatase 63 U/L (38-126); Anion Gap 5 mmol/L; Blood Urea Nitrogen 11 mg/dL (9-20); Calcium 8.4 mg/dL (8.4-10.2); Carbon Dioxide 23 mmol/L (22-30); Chloride 108 mmol/L (98-107); Glucose 102 mg/dL (74-99); Non-African American GFR(CKD) >90 (>60 ml/min/1.73 sqM); Potassium 3.8 mmol/L (3.5-5.1); Sodium 136 mmol/L (137-145); Total Bilirubin 0.7 mg/dL (0.2-1.3); Total Protein 5.9 g/dL (6.3-8.2)
[2019-08-27] MEDS ORDERED: ALPRAZolam 0.25 MG TAB PO PRN (09:26)
[2019-08-27] MEDS ORDERED: ALPRAZolam 0.5 MG TAB PO PRN (09:26)
[2019-08-27] MEDS ORDERED: ASPIRIN 325 MG TAB PO STA (09:26)
[2019-08-27] MEDS ORDERED: SODIUM CHLORIDE 0.9% 1,000 ML in EMPTY BAG 1 BAG IV ONE (09:26)
[2019-08-27] MEDS ORDERED: NITROGLYCERIN SL TABS 0.4 MG TAB SUBLINGUAL PRN (09:26)
[2019-08-27] MEDS ORDERED: ATORVASTATIN 80 MG TAB PO STA (09:26)
[2019-08-27] MEDS ORDERED: Potassium Replacement Protocol 1 EACH MISC MISCELLANE PRN (10:23)
[2019-08-27] MEDS ORDERED: POTASSIUM CHLORIDE ER 20 MEQ TAB.ER PO SCH (11:00)
--- NOTE | 2019-08-27 11:23 | ECHOF ---
Referral Reason:nstemi MEASUREMENTS -------- HEIGHT: 182.9 cm WEIGHT: 71.2 kg BP: 137/80 RVIDd: 2.2 cm (< 3.3) IVSd: 1.1 cm (0.6 - 1.1) LVIDd: 3.5 cm (3.9 - 5.3) LVPWd: 1.4 cm (0.6 - 1.1) IVSs: 1.5 cm LVIDs: 2.3 cm LVPWs: 1.7 cm LAESV Index (A-L): 25.87 ml/m Ao Diam: 3.3 cm (2.0 - 3.7) AV Cusp: 2.2 cm (1.5 - 2.6) LA Diam: 3.3 cm (2.7 - 3.8) MV EXCURSION: 17.354 mm (> 18.000) MV EF SLOPE: 98 mm/s (70 - 150) EPSS: 0.5 cm MV E Kevin: 0.74 m/s MV DecT: 206 ms MV A Kevin: 0.69 m/s MV E/A Ratio: 1.08 RAP: 5.00 mmHg RVSP: 18.11 mmHg TAPSE: 23.95 mm FINDINGS -------- Sinus rhythm. This was a technically good study. The left ventricular size is normal. There is mild concentric left ventricular hypertrophy. Overa ll left ventricular systolic function is normal with, an EF between 55 - 60 %. The diastolic fillin g pattern is normal for the age of the patient 10.55. The right ventricle is normal in size. The right ventricular systolic function is normal. The left atrial size is normal. Normal LA size by volume 22+/-6 ml/m2. The right atrial size is normal. The aortic valve is trileaflet and appears structurally normal. The mitral valve is normal. The mitral valve leaflets are mildly thickened. Mild mitral regurgita tion is present. There is mild mitral valve prolapse. The tricuspid valve appears structurally normal. Mild tricuspid regurgitation present. Right vent ricular systolic pressure is normal at < 35 mmHg. There is no pulmonic regurgitation present. The aortic root size is normal. Normal inferior vena cava with normal inspiratory collapse consistent with estimated right atrial pre ssure of 5 mmHg. There is no pericardial effusion. CONCLUSIONS -------- 1. Sinus rhythm. 2. This was a technically good study. 3. The left ventricular size is normal. 4. There is mild concentric left ventricular hypertrophy. 5. Overall left ventricular systolic function is normal with, an EF between 55 - 60 %. 6. The diastolic filling pattern is normal for the age of the patient 10.55 7. The right ventricle is normal in size. 8. The right ventricular systolic function is normal. 9. The left atrial size is normal. 10. Normal LA size by volume 22+/-6 ml/m2. 11. The right atrial size is normal. 12. The aortic valve is trileaflet and appears structurally normal. 13. The mitral valve is normal. 14. The mitral valve leaflets are mildly thickened. 15. Mild mitral regurgitation is present. 16. There is mild mitral valve prolapse. 17. The tricuspid valve appears structurally normal. 18. Mild tricuspid regurgitation present. 19. Right ventricular systolic pressure is normal at < 35 mmHg. 20. There is no pulmonic regurgitation present. 21. The aortic root size is normal. 22. Normal inferior vena cava with normal inspiratory collapse consistent with estimated right atrial pressure of 5 mmHg. 23. There is no pericardial effusion. LONG DISTANCE OPERATOR: Vianey Velazquez RDCS
--- NOTE | 2019-08-27 11:50 | P.PN ---
Subjective Progress Note Date: 08/27/19 This is a 58-year-old gentleman with known history of coronary artery disease and prior stent placement of the right coronary artery, prior stenting of the LAD, in May 2017 patient underwent a cardiac catheterization with subsequent stenting of the LAD at that time and most recently the patient underwent an FFR by Dr. Maravilla in May of last year, he had presented at that time to [facility] with a non-STEMI, the FFR revealed intermediate to severe in-stent restenosis involving the RCA in the midportion, FFR was applied and came back to be 0.8-70 medical therapy was advised at that time. He was also advised at that time that he may need an aortogram with runoff down the line because of an occluded right common iliac artery and patient has intermittent claudication of that right leg.History of hypertension, hyperlipidemia, nicotine dependence, and alcohol use. Patient presents to the hospital on this occasion with symptoms of chest discomfort and subsequent sync opal episode. According to the patient he's been having frequent episodes of chest discomfort at home that reminded him of his heart attacks in the past. Overall the patient states she has just not been feeling well. He's been somewhat lightheaded and dizzy. He states that prior to coming to the hospital, he was walking and without warning passed out and fell to the floor. He did hit his hip hard onto the floor and also hit the back of his head. An x-ray of the right hip and pelvis was performed which revealed a previous right hip hemiarthroplasty with some underlying degenerative change, mild to moderate left hip osteoarthritis and no acute process seen. CAT scan of the brain was also performed which revealed stable old bilateral basal ganglionic the sooner infarcts and old encephalomalacia involving the right subtotal lobe related to a prior infarct, no acute abnormality seen. CTA of the chest was performed which revealed breathing motion artifact which degraded the exam, no large central or lobar branch pulmonary embolism seen here at many of the subsegmental and distal artery branches were nondiagnostic and emboli cannot be excluded. COPD with advanced emphysema.0.9 cm right tracheobronchial angle and 2 cm right hilar lymph nodes noted subpleural right upper lobe densities measuring 1.7 x 0.9 cm. Neoplasm cannot be excluded at this time and a pulmonary evaluation and referral has been recommended. No chest x-ray performed. Blood pressure 137/70, heart rate in the 70s, afebrile. EKG on presentation here showed a normal sinus rhythm with no acute changes noted. White blood cell count 12.6 on admission, hemoglobin 14.4, platelet count 379. Sodium 137, potassium 4.9, BUN 12, creatinine 0.5. Total bilirubin 1.4 AST 145 ALT 36 CK 6224, 6448, 6080. Troponin 0.12, 0.17, 0.18. At the time of my examination this morning, patient is complaining of some right hip discomfort, he denies any chest pain this morning no dizziness or lightheadedness. 08/27/2019 Patient seen and examined this morning, feeling overall much better today. He does state that he had multiple episodes of chest discomfort through the night last night at the time of my examination he is currently chest pain-free. I did speak with Dr. Maravilla this morning, he will be performing the patient's cardiac catheterization this afternoon if the schedule allows.his blood pressures 137/80 with a heart rate in the 80s, 98% on room air.sodium 136, potassium 3.8, BUN 11, creatinine 0.6. White blood cell count 5.2, hemoglobin 12.5, platelet count 239. Objective - Vital Signs Vital signs: Vital Signs Temp 97.8 F 08/27/19 08:00 Pulse 76 08/27/19 08:00 Resp 18 08/27/19 08:00 BP 150/85 08/27/19 08:00 Pulse Ox 95 08/27/19 08:00 Intake & Output 08/26/19 08/27/19 08/27/19 18:59 06:59 18:59 Intake Total 462.068 Output Total 1775 Balance 462.068 -1775 Weight 71.5 kg Intake: Intake, IV Titration 222.068 Amount Heparin Sod,Pork in 0.45% 222.068 NaCl 25,000 unit In 0.45 % NaCl 1 250ml.bag @ 12 UNITS/KG/HR 8.437 mls/hr IV .Q24H LINDA Rx#: [id number] Oral 240 Output: Urine 1775 Other: Voiding Method Urinal Urinal Urinal # Voids 1 - Exam PHYSICAL EXAMINATION: 58-year-old gentleman in no acute distress at the time of my examination HEENT: Head is atraumatic, normocephalic. Pupils equal, round. Neck is supple. There is no elevated jugular venous pressure. HEART EXAMINATION: Heart S1, S2 normal. No murmur or gallop heard. CHEST EXAMINATION: Lungs reveal fine wheezing throughout . No chest wall tenderness is noted on palpation or with deep breathing. ABDOMEN: Soft, nontender. Bowel sounds are heard. No organomegaly noted. EXTREMITIES: 1+ peripheral pulses with no evidence of peripheral edema and no calf tenderness noted. NEUROLOGIC patient is awake, alert and oriented X3. - Labs CBC & Chem 7: 08/27/19 06:17 08/27/19 06:14 Labs: Abnormal Lab Results - Last 24 Hours (Table) 08/26/19 08/26/19 08/27/19 Range/Units 05:55 19:09 06:14 RBC (4.30-5.90) m/uL Hgb (13.0-17.5) gm/dL Hct (39.0-53.0) % MCV (80.0-100.0) fL APTT 54.8 H 49.0 H (22.0-30.0) sec Sodium 134 L (137-145) mmol/L Chloride (98-107) mmol/L Creatinine 0.63 L (0.66-1.25) mg/dL Glucose (74-99) mg/dL Phosphorus 2.4 L (2.5-4.5) mg/dL Total Bilirubin 1.4 H (0.2-1.3) mg/dL AST 165 H (17-59) U/L Total Protein (6.3-8.2) g/dL Albumin 3.2 L (3.5-5.0) g/dL 08/27/19 08/27/19 Range/Units 06:14 06:17 RBC 3.64 L (4.30-5.90) m/uL Hgb 12.5 L (13.0-17.5) gm/dL Hct 36.6 L (39.0-53.0) % MCV 100.4 H (80.0-100.0) fL APTT (22.0-30.0) sec Sodium 136 L (137-145) mmol/L Chloride 108 H (98-107) mmol/L Creatinine 0.63 L (0.66-1.25) mg/dL Glucose 102 H (74-99) mg/dL Phosphorus (2.5-4.5) mg/dL Total Bilirubin (0.2-1.3) mg/dL AST 123 H (17-59) U/L Total Protein 5.9 L (6.3-8.2) g/dL Albumin 3.0 L (3.5-5.0) g/dL Assessment and Plan Plan: Assessment and plan #1 chest discomfort with associated dizziness and subsequent syncope. Rule out possible acute coronary syndrome. Troponins 0.12, 0.17, 0.18. EKG shows normal sinus rhythm with no acute changes. #2 known history of coronary artery disease with prior RCA and LAD stenting, most recent stent was placed in July of 2017 to the ostial and mid LAD. Patient underwent an FFR in May 2019 after presenting to [facility] with a non-STEMI, he was found to have severe disease involving the mid RCA which seemed to be in-stent, FFR came back to be 0.8 and maximal medical therapy advised at that time. #3 hypertension #4 hyperlipidemia #5 nicotine dependence #6 EtOH use #7 mildly abnormal liver functions #8 elevated CK, likely secondary to fall Plan An echocardiogram with Doppler study was performed which revealed a normal left ventricular systolic function. Patient will be scheduled today to undergo cardiac catheterization with Dr. Maravilla, the risks and the benefits were exp lained to the patient in detail and he is willing to proceed. DNP note has been reviewed, I agree with a documented findings and plan of care. Patient was seen and examined.
--- NOTE | 2019-08-27 12:32 | P.PN ---
Subjective Progress Note Date: 08/27/19 This is a 58-year-old male patient who originally presented to the hospital with complaints of dizziness and fall. Patient does have a significant past medical history for [place] times for coronary artery disease with previous stents, alcohol abuse, nicotine dependence, noncompliance with medication, GERD, hyperlipidemia, hypertension, osteoporosis, pneumonia. Head CT was completed showing stable old bilateral basal ganglionic lucanar infarct and old encephalomalacia involving the right is lobe related to prior infarct no acute intracranial abnormality seen. Right hip x-ray completed showing right hip hemiarthroplasty this seems to be some underlying degenerative cartilage loss along the need a seat about 1. Mild to moderate left hip OA. No acute osseous abnormality seen. Patient's initial troponin elevated 0.15 CK 6224. Patient started on heparin drip cardiology services have been consulted. Dr. AUBREY Feliciano covering until 08/27/2019 On 08/27/2019 patient is alert and oriented 3. Patient is still complaining of of intermittent chest pain. Per cardiology services plans for cardiac cat heterization today. Patient maintained on heparin drip. Denies any shortness breath. Denies nausea vomiting or diarrhea. Denies any urinary burning or frequency Objective - Vital Signs Vital signs: Vital Signs Temp 97.8 F 08/27/19 08:00 Pulse 76 08/27/19 08:00 Resp 18 08/27/19 08:00 BP 150/85 08/27/19 08:00 Pulse Ox 95 08/27/19 08:00 Intake & Output 08/26/19 08/27/19 08/27/19 18:59 06:59 18:59 Intake Total 462.068 Output Total 1775 Balance 462.068 -1775 Weight 71.5 kg Intake: Intake, IV Titration 222.068 Amount Heparin Sod,Pork in 0.45% 222.068 NaCl 25,000 unit In 0.45 % NaCl 1 250ml.bag @ 12 UNITS/KG/HR 8.437 mls/hr IV .Q24H LINDA Rx#: [id number] Oral 240 Output: Urine 1775 Other: Voiding Method Urinal Urinal Urinal # Voids 1 - Exam Head normocephalic Neck supple Lungs clear to auscultation bilaterally no wheezing or crackles Heart regular rate and rhythm S1-S2, no rub or gallop Abdomen is soft nontender nondistended positive bowel sounds no hepatosplenomegaly Extremities no edema Neuro alert and orientated to 3 - Labs CBC & Chem 7: 08/27/19 06:17 08/27/19 06:14 Labs: Abnormal Lab Results - Last 24 Hours (Table) 08/26/19 08/27/19 08/27/19 Range/Units 19:09 06:14 06:14 RBC (4.30-5.90) m/uL Hgb (13.0-17.5) gm/dL Hct (39.0-53.0) % MCV (80.0-100.0) fL APTT 54.8 H 49.0 H (22.0-30.0) sec Sodium 136 L (137-145) mmol/L Chloride 108 H (98-107) mmol/L Creatinine 0.63 L (0.66-1.25) mg/dL Glucose 102 H (74-99) mg/dL AST 123 H (17-59) U/L Total Protein 5.9 L (6.3-8.2) g/dL Albumin 3.0 L (3.5-5.0) g/dL 08/27/19 Range/Units 06:17 RBC 3.64 L (4.30-5.90) m/uL Hgb 12.5 L (13.0-17.5) gm/dL Hct 36.6 L (39.0-53.0) % MCV 100.4 H (80.0-100.0) fL APTT (22.0-30.0) sec Sodium (137-145) mmol/L Chloride (98-107) mmol/L Creatinine (0.66-1.25) mg/dL Glucose (74-99) mg/dL AST (17-59) U/L Total Protein (6.3-8.2) g/dL Albumin (3.5-5.0) g/dL Assessment and Plan Assessment: 1. Chest discomfort with associated dizziness and syncope. Limited troponin. Patient maintained on heparin drip. Plans for cardiac catheterization today 2. Acute non-ST elevated [place]. Patient maintained on heparin drip to undergo heart catheterization stay per cardiology 3. Rhabdomyolysis. 4. History of coronary artery disease with multiple myocardial infarctions with previous stents. Appears patient has been noncompliant with medications 5. History of chronic obstructive pulmonary disease. No exacerbation at this time 6. History of cerebrovascular accident 7. History of nicotine dependence 8. History of EtOH abuse 9. History of essential hypertension 10. Abnormal CTA. CTA performed showing breathing motion artifact degrades the exam no large central or lobar lobe branch pulmonary embolus. Many of the segmental and more distal arterial branches are nondiagnostic and embolus in nasal patient cannot be excluded on the basis of exam. COPD with advanced emphysema. New 1.9 cm right tracheobronchial angle and 2.6 cm right hilar lymph nodes. Subpleural right upper lobe densities measures 1.70.9 and 7 mm neoplasm not excluded at this time. Pulmonary service is consulted DVT prophylaxis heparin drip. GI prophylaxis Protonix cardiology and pulmonary service is consulted Maintained on heparin drip Plans for cardiac catheterization today 08/27/2019
[2019-08-27] MEDS: SODIUM CHLORIDE 0.9% 1,000 ML IV SCH ×2 (13:15→18:13)
[2019-08-27] MEDS: HEPARIN SOD,PORK IN 0.45% NACL 25,000 UNIT in 0.45% NACL 1 250ML.BAG IV SCH (17:12)
--- NOTE | 2019-08-27 19:33 | CONS ---
CONSULTATION DATE OF SERVICE: 08/27/2019 Please see my initial history and physical for circumstances of the patient's initial admission. The patient was seen again on August 27, 2019. He has been hemodynamically stable. He complained of mild shortness of breath. PHYSICAL EXAMINATION: His vitals are stable. He is afebrile. His chest revealed prolonged exhalation. Cardiovascular system revealed an S1, S2. Abdomen is soft. There is no pedal edema. IMPRESSION: At this time: 1. Syncope. 2. Coronary artery disease for which he may require cardiac catheterization. 3. Chronic obstructive pulmonary disease. 4. Lung nodule for which we will require an outpatient PET scan. The patient was counseled regarding his condition and this approach. MMODL / IJN: [id number] /
[2019-08-28] MEDS: NITROGLYCERIN OINT 1 INCH/GM PACKET TOPICAL SCH ×4 (05:52→18:19)
[2019-08-28] MEDS: MORPHINE SULFATE 2 MG/ML SYRINGE IVP PRN ×2 (05:53→19:45)
[2019-08-28] MEDS: PANTOPRAZOLE 40 MG TABLET PO SCH (06:49)
[2019-08-28] MEDS ORDERED: ASPIRIN 325 MG TAB PO STA (07:59)
[2019-08-28] MEDS: ATORVASTATIN 80 MG TAB PO SCH (08:07)
[2019-08-28] MEDS: METOPROLOL TARTRATE 25 MG TAB PO SCH (08:07)
[2019-08-28] MEDS ORDERED: IV FLUID CONTINUATION 350 ML IV ONE (08:50)
[2019-08-28] MEDS: MIDAZOLAM 2 MG/2 ML VIAL IV ONE ×2 (09:30→09:35)
[2019-08-28] MEDS ORDERED: fentaNYL (PF) 50 MCG/ML 2 ML AMP IV ONE (09:38)
[2019-08-28] MEDS ORDERED: LIDOCAINE 1% INJ 10MG/ML (20 ML MDV) SQ ONE (09:38)
[2019-08-28] MEDS: VERAPAMIL SYRINGE (5 MG/10 ML) INTRAARTER ONE ×2 (09:39→10:28)
[2019-08-28] MEDS ORDERED: BIVALIRUDIN BOLUS 250 MG/50 ML IV ONE (09:44)
[2019-08-28] MEDS ORDERED: BIVALIRUDIN 250 MG in SODIUM CHLORIDE 0.9% 50 ML IV ONE (09:45)
[2019-08-28] MEDS ORDERED: PRASUGREL 10 MG TAB PO ONE (09:52)
[2019-08-28] MEDS: NITROGLYCERIN 1000MCG/10ML SYRINGE INTRACORON ONE ×2 (09:55→10:05)
[2019-08-28] MEDS ORDERED: ONDANSETRON 4 MG/2 ML VIAL IVP ONE (10:19)
[2019-08-28] MEDS ORDERED: IOPAMIDOL-370 125ML BTL INJ ONE (10:21)
[2019-08-28] MEDS ORDERED: hydrALAZINE HCL 20 MG/ML 1 ML VIAL IVP ONE (10:30)
[2019-08-28] MEDS ORDERED: ENALAPRILAT 1.25 MG/ML 1 ML VIAL IVP ONE (10:31)
[2019-08-28] MEDS: 1: MVI, ADULT NO.4 WITH VIT K 10 ML, THIAMINE 100 MG, FOLIC ACID 1 MG in SODIUM CHLORIDE IV SCH ×12 (10:32→19:47)
[2019-08-28] MEDS ORDERED: IOPAMIDOL-370 100ML BTL INJ ONE (10:33)
[2019-08-28] MEDS ORDERED: ATROPINE SULFATE 0.1 MG/ML 10ML SYRINGE IV PRN (10:35)
[2019-08-28] MEDS ORDERED: MAG HYDROX/AL HYDROX/SIMETH 30 ML CUP PO PRN (10:35)
[2019-08-28] MEDS ORDERED: RX INFO: IV CONTRAST WAS GIVEN 1 EACH MISC MISCELLANE PRN (10:35)
[2019-08-28] MEDS: SODIUM CHLORIDE 0.9% 1,000 ML IV SCH ×2 (10:37→18:19)
[2019-08-28] MEDS ORDERED: SODIUM CHLORIDE 0.9% 1,000 ML IV SCH (10:45)
--- NOTE | 2019-08-28 11:06 | CC ---
CARDIAC CATHETERIZATION REPORT CARDIAC CATHETERIZATION AND PERCUTANEOUS CORONARY INTERVENTION: DATE OF SERVICE: August 28, 2019. PERFORMING PHYSICIAN: Arnulfo Jiménez MD. PROCEDURE PERFORMED: 1. Selective left and right coronary angiogram. 2. Left heart catheterization. 3. Successful stenting of the mid right coronary artery using 3.25 x 28 mm and 3.5 x 12 mm Xience MAXIMINO with an excellent angiographic results. 4. Successful stenting of the proximal right coronary artery using 4.0 x 12 mm Xience MAXIMINO with an excellent angiographic results. INDICATION: This is a 58-year-old gentleman with history of coronary artery disease and prior stenting of the LAD and RCA, presented to the hospital complaining of chest discomfort. He underwent a heart catheterization a few months ago and that revealed intermediate to severe disease involving the right coronary artery, which we did an FFR and that came in to be at 0.82. Because the patient continues to have chest discomfort. The plan was to proceed with PCI today. APPROACH: Right radial artery. COMPLICATION: None. LEVEL OF SEDATION: Moderate with sedation length of 54 minutes. PROCEDURE DESCRIPTION: After obtaining an informed consent, the patient was brought to the cardiac laboratory tester. The right radial artery was cannulated using micropuncture technique, the micropuncture wire passed easily then I placed a 6-Korean sheath in the right radial artery. After that I gave the patient 2 mg of verapamil IA and anticoagulation with Angiomax was started. After that I did selective right and left coronary angiogram. Right coronary angiogram was performed using JR4 guide and left coronary angiogram was performed using JL3.5 catheter. After that, heart catheterization was performed. After that I did intervene on the right coronary artery. Please see a separate paragraph for that. SELECTIVE CORONARY ANGIOGRAM: 1. The left main is angiographically normal. It bifurcates into LCX and LAD. 2. The LCX is a large caliber vessel. It is a nondominant vessel. It does have mild disease only. 3. The LAD has a plaque in the proximal portion appeared to be in the range of 50%. The mid LAD is stented with mild to moderate diffuse in-stent restenosis. The LAD distally is angiographically normal and becomes small caliber vessel. The LAD gives rise into a diagonal branch which seems to be normal. 4. The RCA: The RCA is stented in the midportion with intermediate to severe in-stent restenosis. HEMODYNAMICS: The LVEDP was 15 mmHg without significant gradient across the aortic valve. PCI OF THE RCA: Anticoagulation was initiated using Angiomax. Subsequently I took JR4 guide and the RCA was engaged. I did wire it using a run-through wire. I did after that balloon angioplasty using 2.5 x 10 mm AngioSculpt balloon. After that, I deployed in the mid 3.25 x 28 mm Xience MAXIMINO where the stent was positioned under fluoroscopy guidance and deployed under fluoroscopy guidance after that. I post-dilated the stent using a 3.5 NC balloon. The following angiogram showed what seems to be distal edge dissection which I decided to cover with another stent. I deployed 3.5 x 12 mm Xience MAXIMINO. The following angiogram showed another edge dissection proximal to the previous stent or extent of the previous dissection, so I decided to cover that again with a stent and I deployed a 4.0 x 12 mm stent. The following angiogram showed great angiographic results and the procedure was completed without any complication. CONCLUSION: 1. Severe disease involving the mid right coronary artery. 2. Intermediate disease involving the proximal left anterior descending artery. 3. Successful stenting of the RCA as described above. POSTPROCEDURE MANAGEMENT: 1. Dual antiplatelet therapy. 2. Risk factors modifications. 3. Follow up with the patient. MMODL / IJN: [id number] /
[2019-08-28 13:00] LABS: ALT 49 U/L (4-49); AST 102 U/L (17-59); African American GFR (CKD) >90 (>60 ml/min/1.73 sqM); Albumin 3.5 g/dL (3.5-5.0); Alkaline Phosphatase 71 U/L (38-126); Anion Gap 7 mmol/L; Blood Urea Nitrogen 7 mg/dL (9-20); Calcium 8.8 mg/dL (8.4-10.2); Carbon Dioxide 20 mmol/L (22-30); Chloride 107 mmol/L (98-107); Glucose 120 mg/dL (74-99); Non-African American GFR(CKD) >90 (>60 ml/min/1.73 sqM); Potassium 3.7 mmol/L (3.5-5.1); Sodium 134 mmol/L (137-145); Total Protein 6.7 g/dL (6.3-8.2)
--- NOTE | 2019-08-28 14:10 | P.PN ---
Subjective Progress Note Date: 08/28/19 This is a 58-year-old male patient who originally presented to the hospital with complaints of dizziness and fall. Patient does have a significant past medical history for [place] times for coronary artery disease with previous stents, alcohol abuse, nicotine dependence, noncompliance with medication, GERD, hyperlipidemia, hypertension, osteoporosis, pneumonia. Head CT was completed showing stable old bilateral basal ganglionic lucanar infarct and old encephalomalacia involving the right is lobe related to prior infarct no acute intracranial abnormality seen. Right hip x-ray completed showing right hip hemiarthroplasty this seems to be some underlying degenerative cartilage loss along the need a seat about 1. Mild to moderate left hip OA. No acute osseous abnormality seen. Patient's initial troponin elevated 0.15 CK 6224. Patient started on heparin drip cardiology services have been consulted. Dr. AUBREY Feliciano covering until 08/27/2019 On 08/27/2019 patient is alert and oriented 3. Patient is still complaining of of intermittent chest pain. Per cardiology services plans for cardiac cat heterization today. Patient maintained on heparin drip. Denies any shortness breath. Denies nausea vomiting or diarrhea. Denies any urinary burning or frequency On 08/28/2019 patient is alert and oriented 3. Patient is status post heart cath with 3 stents to the RCA. Patient is currently on Effient. Patient educated on the importance of lifestyle modifications including alcohol and smoking cessation along with the necessity for medication compliance, patient verbalized understanding. At this time patient denies chest pain or shortness of breath. Patient denies nausea vomiting or diarrhea. Patient denies any urinary burning or frequency Objective - Vital Signs Vital signs: Vital Signs Temp 97.8 F 08/28/19 08:00 Pulse 77 08/28/19 12:20 Resp 19 08/28/19 12:00 BP 113/78 08/28/19 12:20 Pulse Ox 98 08/28/19 10:50 Intake & Output 08/27/19 08/28/19 08/28/19 18:59 06:59 18:59 Intake Total 490 98.078 235 Output Total 400 2250 325 Balance 90 -2151.922 -90 Weight 71.8 kg Intake: IV 235 Intake, IV Titration 250 98.078 Amount Heparin Sod,Pork in 0.45% 250 98.078 NaCl 25,000 unit In 0.45 % NaCl 1 250ml.bag @ 12 UNITS/KG/HR 8.437 mls/hr IV .Q24H LINDA Rx#: [id number] Oral 240 0 Output: Urine 400 2250 325 Other: Voiding Method Urinal Urinal Urinal # Voids 1 # Bowel Movements 1 - Exam Head normocephalic Neck supple Lungs clear to auscultation bilaterally no wheezing or crackles Heart regular rate and rhythm S1-S2, no rub or gallop Abdomen is soft nontender nondistended positive bowel sounds no hepatosplenomegaly Extremities no edema Neuro alert and orientated to 3 - Labs CBC & Chem 7: 08/27/19 06:17 08/28/19 12:01 Labs: Abnormal Lab Results - Last 24 Hours (Table) 08/27/19 08/28/19 Range/Units 19:39 12:01 APTT 40.4 H (22.0-30.0) sec Sodium 134 L (137-145) mmol/L Carbon Dioxide 20 L (22-30) mmol/L BUN 7 L (9-20) mg/dL Creatinine 0.50 L (0.66-1.25) mg/dL Glucose 120 H (74-99) mg/dL AST 102 H (17-59) U/L Assessment and Plan Assessment: 1. Chest discomfort with associated dizziness and syncope. Limited troponin. Patient maintained on heparin drip. Patient underwent cardiac cath on 08/28/2019 and got 3 stents to RCA currently on Effient 2. Acute non-ST elevated [place]. Patient maintained on heparin drip to undergo heart catheterization stay per cardiology 3. Rhabdomyolysis. 4. History of coronary artery disease with multiple myocardial infarctions with previous stents. Appears patient has been noncompliant with medications 5. History of chronic obstructive pulmonary disease. No exacerbation at this time 6. History of cerebrovascular accident 7. History of nicotine dependence 8. History of EtOH abuse 9. History of essential hypertension 10. Abnormal CTA. CTA performed showing breathing motion artifact degrades the exam no large central or lobar lobe branch pulmonary embolus. Many of the segmental and more distal arterial branches are nondiagnostic and embolus in nasal patient cannot be excluded on the basis of exam. COPD with advanced emphysema. New 1.9 cm right tracheobronchial angle and 2.6 cm right hilar lymph nodes. Subpleural right upper lobe densities measures 1.70.9 and 7 mm neoplasm not excluded at this time. Per pulmonary services lung nodule seen on computed tomography scan patient will require an outpatient PET scan cardiology and pulmonary service following I performed an examination of the patient and discussed their management with the Nurse Practitioner. I have reviewed the Nurse Practitioner's notes and agree with the documented findings and plan of care
--- NOTE | 2019-08-28 14:33 | PN ---
PROGRESS NOTE He was seen on 08/28/2019. He underwent cardiac catheterization today with the right wrist approach. He was found to have significant disease in the right coronary artery and underwent successful stenting of the mid coronary artery and the proximal right coronary artery. He does not seem short of breath and is sleepy but arousable. On physical examination, respiratory rate is 19, pulse rate of 77, blood pressure 137/88, temperature 97.8 degrees Fahrenheit. HEENT is unremarkable. Chest reveals decreased breath sounds. No wheeze. Cardiovascular system reveals an S1, S2. Abdomen is soft. There is no edema. IMPRESSION: 1. Syncope and chest pain secondary to acute [place]. 2. Coronary artery disease. 3. Lung nodule. 4. Alcoholism. Continue current medications. Outpatient PET scan may be helpful. MMODL / IJN: [id number] /
[2019-08-29 03:45] VITALS: TEMP 98.2
[2019-08-29] MEDS: NITROGLYCERIN OINT 1 INCH/GM PACKET TOPICAL SCH ×2 (06:36→06:38)
[2019-08-29] MEDS: 1: MVI, ADULT NO.4 WITH VIT K 10 ML, THIAMINE 100 MG, FOLIC ACID 1 MG in SODIUM CHLORIDE IV SCH ×4 (06:37)
[2019-08-29] MEDS: PANTOPRAZOLE 40 MG TABLET PO SCH (06:38)
[2019-08-29 07:06] LABS: Basophils # (A) 0.1 k/uL (0-0.2); Basophils % (A) 1 %; Eosinophils # (A) 0.3 k/uL (0-0.7); Eosinophils % (A) 3 %; HCT 39.9 % (39.0-53.0); HGB 13.2 gm/dL (13.0-17.5); Lymphocytes # (A) 1.6 k/uL (1.0-4.8); Lymphocytes % (A) 20 %; Mean Platelet Volume 7.7; Monocytes # (A) 0.4 k/uL (0-1.0); Monocytes % (A) 5 %; Neutrophils # (A) 5.5 k/uL (1.3-7.7); Neutrophils % (A) 68 %; Platelet Count 187 k/uL (150-450); RBC 3.99 m/uL (4.30-5.90); RDW 13.2 % (11.5-15.5); WBC 8.1 k/uL (3.8-10.6)
[2019-08-29 07:26] LABS: ALT 40 U/L (4-49); AST 64 U/L (17-59); African American GFR (CKD) >90 (>60 ml/min/1.73 sqM); Albumin 3.3 g/dL (3.5-5.0); Alkaline Phosphatase 65 U/L (38-126); Anion Gap 6 mmol/L; Blood Urea Nitrogen 7 mg/dL (9-20); Carbon Dioxide 24 mmol/L (22-30); Chloride 107 mmol/L (98-107); Glucose 106 mg/dL (74-99); Non-African American GFR(CKD) >90 (>60 ml/min/1.73 sqM); Potassium 3.9 mmol/L (3.5-5.1); Sodium 137 mmol/L (137-145); Total Bilirubin 0.9 mg/dL (0.2-1.3); Total Protein 6.5 g/dL (6.3-8.2)
[2019-08-29 08:00] VITALS: RESP 19
[2019-08-29] MEDS ORDERED: ASPIRIN 81 MG PO SCH (09:00)
[2019-08-29] MEDS ORDERED: LISINOPRIL 10 MG TAB PO SCH (09:00)
[2019-08-29] MEDS: METOPROLOL TARTRATE 25 MG TAB PO SCH (09:02)
[2019-08-29] MEDS: ATORVASTATIN 80 MG TAB PO SCH (09:02)
[2019-08-29] MEDS ORDERED: PRASUGREL 10 MG TAB PO SCH (10:37)
[2019-08-29 11:40] VITALS: BMI 22.2
[2019-08-29 12:32] VITALS: BP 106/67; PULSE 72
--- NOTE | 2019-08-29 13:40 | PN ---
PROGRESS NOTE He was seen again on 08/29/2019. He does not have any chest pain or he is at his baseline as far as shortness of breath is concerned. ON PHYSICAL EXAMINATION: Blood pressure is 106/67, respiratory rate of 18, pulse rate 72. He is afebrile. O2 saturation on room air is 98%. HEENT: Unremarkable. Chest reveals decreased breath sounds. No wheeze. Cardiovascular system reveals an S1, S2. Abdomen is soft. There is no edema. Patient's labs were reviewed. IMPRESSION AT THIS TIME: 1. Acute myocardial infarction. 2. Status post right coronary artery stent placement. 3. Syncope. 4. Lung nodule. 5. Alcoholism. At this point in time, would continue current medications. Increase activity level. We would be happy to see him in the outpatient setting. He would require an outpatient PET scan. NOREEN / DARIN: [id number] /
--- NOTE | 2019-08-29 14:58 | P.DS ---
Providers Date of admission: 08/25/19 14:00 Expected date of discharge: 08/29/19 Attending physician: Drew Willams Consults: 08/25/19 14:00 Consult Physician Urgent Consulting Provider: John Feliciano Consult Reason/Comments: Subpleural right upper lobe density and hilar lymph nodes Do you want consulting provider notified?: Already Contacted Consult Physician Urgent Consulting Provider: Ulysses Johnson Consult Reason/Comments: nstemi,syncope Do you want consulting provider notified?: Yes 08/28/19 10:35 Consult Physician Routine Consulting Provider: [facility] Consult Reason/Comments: Post Interventional patient Do you want consulting provider notified?: Already Contacted Primary care physician: Drew Willams [facility] Course: Discharge diagnosis 1. Chest discomfort with associated dizziness and syncope. Elevated troponin. Patient maintained on heparin drip. Patient underwent cardiac cath on 08/28/2019 and got 3 stents to RCA currently on Effient. Discussed case with cardiology nurse practitioner Dr. Tierney. Patient has been cleared for discharge. Patient will be DC'd on Effient, Lipitor, , Lopressor, baby aspirin and lisinopril per cardiology. 2. Acute non-ST elevated GA. Status post cardiac catheterization with heart stents 3. Rhabdomyolysis. 4. History of coronary artery disease with multiple myocardial infarctions with previous stents. Appears patient has been noncompliant with medications 5. History of chronic obstructive pulmonary disease. No exacerbation at this time 6. History of cerebrovascular accident 7. History of nicotine dependence 8. History of EtOH abuse 9. History of essential hypertension 10. Abnormal CTA. CTA performed showing breathing motion artifact degrades the exam no large central or lobar lobe branch pulmonary embolus. Many of the segmental and more distal arterial branches are nondiagnostic and embolus in nasal patient cannot be excluded on the basis of exam. COPD with advanced emphysema. New 1.9 cm right tracheobronchial angle and 2.6 cm right hilar lymph nodes. Subpleural right upper lobe densities measures 1.70.9 and 7 mm neoplasm not excluded at this time. Per pulmonary services lung nodule seen on computed tomography scan patient will require an outpatient PET scan Hospital course This is a 58-year-old male patient who originally presented to the hospital with complaints of dizziness and fall. Patient does have a significant past medical history for GA times for coronary artery disease with previous stents, alcohol abuse, nicotine dependence, noncompliance with medication, GERD, hyperlipidemia, hypertension, osteoporosis, pneumonia. Head CT was completed showing stable old bilateral basal ganglionic lucanar infarct and old encephalomalacia involving the right is lobe related to prior infarct no acute intracranial abnormality seen. Right hip x-ray completed showing right hip hemiarthroplasty this seems to be some underlying degenerative cartilage loss along the need a seat about 1. Mild to moderate left hip OA. No acute osseous abnormality seen. Patient's initial troponin elevated 0.15 CK 6224. Patient started on heparin drip cardiology services have been consulted. Dr. AUBREY Feliciano covering until 08/27/2019 On 08/27/2019 patient is alert and oriented 3. Patient is still complaining of of intermittent chest pain. Per cardiology services plans for cardiac catheterization today. Patient maintained on heparin drip. Denies any shortness breath. Denies nausea vomiting or diarrhea. Denies any urinary burning or frequency On 08/28/2019 patient is alert and oriented 3. Patient is status post heart cath with 3 stents to the RCA. Patient is currently on Effient. Patient educated on the importance of lifestyle modifications including alcohol and smoking cessation along with the necessity for medication compliance, patient verbalized understanding. At this time patient denies chest pain or shortness of breath. Patient denies nausea vomiting or diarrhea. Patient denies any urinary burning or frequency On 08/29/2019 patient is alert and oriented 3. Patient has been cleared for discharge from both cardiology and pulmonary services. Cardiac meds per cardiology services. Patient will be DC'd on Effient, aspirin, Lipitor, Lopressor and lisinopril. Again patient educated on the importance of lifestyle modifications and medication adherence. Patient advised followed closely with PCP, cardiology services and pulmonary services for further management chronic conditions. At this time patient denies chest pain or shortness breath. Patient denies nausea vomiting or diarrhea. Patient denies any urinary burning or frequency. I performed an examination of the patient and discussed their management with the Nurse Practitioner. I have reviewed the Nurse Practitioner's notes and agree with the documented findings and plan of care Patient Condition at Discharge: Stable Plan - Discharge Summary Discharge Rx Participant: Yes New Discharge Prescriptions: New Aspirin 81 mg PO DAILY #30 chew Prasugrel [Effient] 10 mg PO DAILY #30 tab Atorvastatin [Lipitor] 80 mg PO DAILY #30 tab Metoprolol Tartrate [Lopressor] 25 mg PO DAILY #30 tab Lisinopril [Zestril] 10 mg PO DAILY #30 tab Continue Nitroglycerin Sl Tabs [Nitrostat] 0.4 mg SUBLINGUAL Q5M PRN tab PRN Reason: Chest Pain Discharge Medication List Nitroglycerin Sl Tabs [Nitrostat] 0.4 mg SUBLINGUAL Q5M PRN tab 05/26/19 [Rx] Aspirin 81 mg PO DAILY #30 chew 08/29/19 [Rx] Atorvastatin [Lipitor] 80 mg PO DAILY #30 tab 08/29/19 [Rx] Lisinopril [Zestril] 10 mg PO DAILY #30 tab 08/29/19 [Rx] Metoprolol Tartrate [Lopressor] 25 mg PO DAILY #30 tab 08/29/19 [Rx] Prasugrel [Effient] 10 mg PO DAILY #30 tab 08/29/19 [Rx] Follow up Appointment(s)/Referral(s): Drew Willams MD [Primary Care Provider] - 09/06/19 10:30 am () John Feliciano MD [STAFF PHYSICIAN] - 09/13/19 9:00 am () Rosalinda Desai MD [STAFF PHYSICIAN] - 09/06/19 10:45 am () Patient Instructions/Handouts: Heart Healthy Diet (DC), After Radial Heart Catheterization (GEN) Activity/Diet/Wound Care/Special Instructions: Activity as tolerated Diet heart healthy Discharge Disposition: HOME SELF-CARE
--- NOTE | 2019-08-29 15:25 | P.PN ---
Subjective Progress Note Date: 08/29/19 This is a 58-year-old gentleman with known history of coronary artery disease and prior stent placement of the right coronary artery, prior stenting of the LAD, in May 2017 patient underwent a cardiac catheterization with subsequent stenting of the LAD at that time and most recently the patient underwent an FFR by Dr. Maravilla in May of last year, he had presented at that time to [facility] with a non-STEMI, the FFR revealed intermediate to severe in-stent restenosis involving the RCA in the midportion, FFR was applied and came back to be 0.8-70 medical therapy was advised at that time. He was also advised at that time that he may need an aortogram with runoff down the line because of an occluded right common iliac artery and patient has intermittent claudication of that right leg.History of hypertension, hyperlipidemia, nicotine dependence, and alcohol use. Patient presents to the hospital on this occasion with symptoms of chest discomfort and subsequent sync opal episode. According to the patient he's been having frequent episodes of chest discomfort at home that reminded him of his heart attacks in the past. Overall the patient states she has just not been feeling well. He's been somewhat lightheaded and dizzy. He states that prior to coming to the hospital, he was walking and without warning passed out and fell to the floor. He did hit his hip hard onto the floor and also hit the back of his head. An x-ray of the right hip and pelvis was performed which revealed a previous right hip hemiarthroplasty with some underlying degenerative change, mild to moderate left hip osteoarthritis and no acute process seen. CAT scan of the brain was also performed which revealed stable old bilateral basal ganglionic the sooner infarcts and old encephalomalacia involving the right subtotal lobe related to a prior infarct, no acute abnormality seen. CTA of the chest was performed which revealed breathing motion artifact which degraded the exam, no large central or lobar branch pulmonary embolism seen here at many of the subsegmental and distal artery branches were nondiagnostic and emboli cannot be excluded. COPD with advanced emphysema.0.9 cm right tracheobronchial angle and 2 cm right hilar lymph nodes noted subpleural right upper lobe densities measuring 1.7 x 0.9 cm. Neoplasm cannot be excluded at this time and a pulmonary evaluation and referral has been recommended. No chest x-ray performed. Blood pressure 137/70, heart rate in the 70s, afebrile. EKG on presentation here showed a normal sinus rhythm with no acute changes noted. White blood cell count 12.6 on admission, hemoglobin 14.4, platelet count 379. Sodium 137, potassium 4.9, BUN 12, creatinine 0.5. Total bilirubin 1.4 AST 145 ALT 36 CK 6224, 6448, 6080. Troponin 0.12, 0.17, 0.18. At the time of my examination this morning, patient is complaining of some right hip discomfort, he denies any chest pain this morning no dizziness or lightheadedness. 08/27/2019 Patient seen and examined this morning, feeling overall much better today. He does state that he had multiple episodes of chest discomfort through the night last night at the time of my examination he is currently chest pain-free. I did speak with Dr. Maravilla this morning, he will be performing the patient's cardiac catheterization this afternoon if the schedule allows.his blood pressures 137/80 with a heart rate in the 80s, 98% on room air.sodium 136, potassium 3.8, BUN 11, creatinine 0.6. White blood cell count 5.2, hemoglobin 12.5, platelet count 239. 08/29/2019 Patient was taken to the cardiac catheterization lab where he underwent successful stenting of the mid RCA and successful stenting of the proximal RCA. He was seen and examined this morning, doing well, denied any chest pain or difficulty in breathing. Hemodynamically stable. Objective - Vital Signs Vital signs: Vital Signs Temp 98.2 F 08/29/19 03:41 Pulse 72 08/29/19 12:00 Resp 19 08/29/19 12:00 BP 106/67 08/29/19 12:00 Pulse Ox 98 08/29/19 12:00 Intake & Output 08/28/19 08/29/19 08/29/19 18:59 06:59 18:59 Intake Total 475 236 Output Total 325 1300 800 Balance 150 -1300 -564 Weight 70.4 kg 70.4 kg Intake: IV 235 Oral 240 236 Output: Urine 325 1300 800 Other: Voiding Method Urinal Urinal - Exam PHYSICAL EXAMINATION: 58-year-old gentleman in no acute distress at the time of my examination HEENT: Head is atraumatic, normocephalic. Pupils equal, round. Neck is supple. There is no elevated jugular venous pressure. HEART EXAMINATION: Heart S1, S2 normal. No murmur or gallop heard. CHEST EXAMINATION: Lungs reveal fine wheezing throughout . No chest wall tenderness is noted on palpation or with deep breathing. ABDOMEN: Soft, nontender. Bowel sounds are heard. No organomegaly noted. EXTREMITIES: 1+ peripheral pulses with no evidence of peripheral edema and no calf tenderness noted. NEUROLOGIC patient is awake, alert and oriented X3. - Labs CBC & Chem 7: 08/29/19 06:48 08/29/19 06:48 Labs: Abnormal Lab Results - Last 24 Hours (Table) 08/29/19 08/29/19 Range/Units 06:48 06:48 RBC 3.99 L (4.30-5.90) m/uL BUN 7 L (9-20) mg/dL Creatinine 0.56 L (0.66-1.25) mg/dL Glucose 106 H (74-99) mg/dL AST 64 H (17-59) U/L Albumin 3.3 L (3.5-5.0) g/dL Assessment and Plan Plan: Assessment and plan #1 chest discomfort with associated dizziness and subsequent syncope. Rule out possible acute coronary syndrome. Troponins 0.12, 0.17, 0.18. EKG shows normal sinus rhythm with no acute changes. #2 known history of coronary artery disease with prior RCA and LAD stenting, most recent stent was placed in July of 2017 to the ostial and mid LAD. Patient underwent an FFR in May 2019 after presenting to [facility] with a non-STEMI, he was found to have severe disease involving the mid RCA which seemed to be in-stent, FFR came back to be 0.8 and maximal medical therapy advised at that time. #3 hypertension #4 hyperlipidemia #5 nicotine dependence #6 EtOH use #7 mildly abnormal liver functions #8 elevated CK, likely secondary to fall Plan Patient underwent successful stenting of the mid and proximal RCA. He may be able to be discharged home today from our perspective, we'll make him a follow- up appointment in the office with Dr. Maravilla post discharge. DNP note has been reviewed, I agree with a documented findings and plan of care. Patient was seen and examined.
[2019-08-29] MEDS ORDERED: CLOPIDOGREL 75 MG TAB PO STA (18:42)
== END 2019-08-29 19:03 | disposition home or self-care (01) | DRG 247 ==
LOC: EC 11:12 → 3SCARD 14:00
PROVIDERS: ADMIT Internal Medicine; ATTEND Internal Medicine
PROC: B2111ZZ Fluoroscopy of Multiple Coronary Arteries using Low Osmolar Contrast (ICD-10-PCS; 2019-08-28)
PROC: 027036Z Dilation of Coronary Artery, One Artery with Three Drug-eluting Intraluminal Devices, Percutaneous Approach (ICD-10-PCS; principal; 2019-08-28 12:00)
PROC: 4A023N7 Measurement of Cardiac Sampling and Pressure, Left Heart, Percutaneous Approach (ICD-10-PCS; 2019-08-28 12:00)
DX: I21.4 Non-ST elevation (NSTEMI) myocardial infarction (principal); M62.82 Rhabdomyolysis; E78.5 Hyperlipidemia, unspecified; F10.20 Alcohol dependence, uncomplicated; F17.210 Nicotine dependence, cigarettes, uncomplicated; I10 Essential (primary) hypertension; I25.10 Atherosclerotic heart disease of native coronary artery without angina pectoris; I25.2 Old myocardial infarction; I70.211 Atherosclerosis of native arteries of extremities with intermittent claudication, right leg; J43.9 Emphysema, unspecified; M16.12 Unilateral primary osteoarthritis, left hip; M81.0 Age-related osteoporosis without current pathological fracture; Z91.14 Patient's other noncompliance with medication regimen; W19.XXXA Unspecified fall, initial encounter; Z79.02 Long term (current) use of antithrombotics/antiplatelets; Z79.82 Long term (current) use of aspirin; Z82.49 Family history of ischemic heart disease and other diseases of the circulatory system; Z82.5 Family history of asthma and other chronic lower respiratory diseases; Z86.73 Personal history of transient ischemic attack (TIA), and cerebral infarction without residual deficits; Z87.11 Personal history of peptic ulcer disease; Z87.19 Personal history of other diseases of the digestive system; Z95.5 Presence of coronary angioplasty implant and graft; Z96.641 Presence of right artificial hip joint; Z88.0 Allergy status to penicillin; R91.8 Other nonspecific abnormal finding of lung field; Z87.01 Personal history of pneumonia (recurrent); Z86.14 Personal history of Methicillin resistant Staphylococcus aureus infection; K21.9 Gastro-esophageal reflux disease without esophagitis
CPT/HCPCS: 36415; 70450; 71275; 73502; 80053; 80061; 82150; 82550; 82553; 83605; 83690; 83735; 84100; 84484; 85025; 85610; 85730; 93005; 93306; 93458; 94760; 96365; 96376; 99291; C1874

== ENCOUNTER 2019-12-30 22:21 | Inpatient (IN) | payer OTHER ==
[2019-12-30 22:58] LABS: Glucose,Whole Blood 110 mg/dL (75-99)
[2019-12-30] MEDS ORDERED: SODIUM CHLORIDE 0.9% 500 ML 500 ML IV STA (23:35)
--- NOTE | 2019-12-30 23:37 | ED ---
Neuro HPI - General Chief Complaint: Neuro Symptoms/Deficit Stated Complaint: R Arm Numbness Time Seen by Provider: 12/30/19 22:59 Source: patient Mode of arrival: ambulatory Limitations: no limitations - History of Present Illness Is the patient presenting with stroke symptoms?: No Last Known Well Date: 12/25/19 Onset/Timin -: days(s) Initial Comments: This patient is a 59-year-old man who presents to be evaluated for right arm numbness and weakness. The patient states that he woke with the symptoms 5 days ago. He states that he thought that he had slept on it funny. The patient states that when the symptoms did not improve he felt he should be seen for it. Location: right arm History of same: No Place: home Severity: moderate Quality: weak, numb, constant Improves With: none Worsens With: none On Anticoagulants: No Context: sudden onset Associated Symptoms: denies other symptoms Treatments Prior to Arrival: none - Related Data Home Medications: Home Medications Medication Instructions Recorded Confirmed Ascorbic Acid [Vitamin C] 500 mg PO DAILY 12/31/19 12/31/19 Omeprazole Magnesium [PriLOSEC OTC] 20 mg PO DAILY 12/31/19 12/31/19 Previous Rx's Medication Instructions Recorded Nitroglycerin Sl Tabs [Nitrostat] 0.4 mg SUBLINGUAL Q5M PRN tab 05/26/19 Aspirin 81 mg PO DAILY #30 chew 08/29/19 Atorvastatin [Lipitor] 80 mg PO DAILY #30 tab 08/29/19 Clopidogrel [Plavix] 75 mg PO DAILY #30 tablet 08/29/19 Lisinopril [Zestril] 10 mg PO DAILY #30 tab 08/29/19 Metoprolol Tartrate [Lopressor] 25 mg PO DAILY #30 tab 08/29/19 Allergies/Adverse Reactions: Allergies Allergy/AdvReac Type Severity Reaction Status Date / Time Penicillins AdvReac Nausea & Verified 12/31/19 08:24 Vomiting & Diarrhea Review of Systems ROS Statement: Those systems with pertinent positive or pertinent negative responses have been documented in the HPI. ROS Other: All systems not noted in ROS Statement are negative. Constitutional: Denies: fever, chills Respiratory: Denies: cough, dyspnea Cardiovascular: Denies: chest pain, palpitations, edema Gastrointestinal: Denies: abdominal pain, vomiting, diarrhea Musculoskeletal: Denies: back pain Skin: Denies: rash Neurological: Reports: as per HPI, weakness, numbness. Denies: headache, paresthesias, confusion General Exam Limitations: no limitations General appearance: alert, in no apparent distress Head exam: Present: atraumatic, normocephalic Eye exam: Present: normal appearance. Absent: scleral icterus, conjunctival injection ENT exam: Present: normal oropharynx Respiratory exam: Present: normal lung sounds bilaterally. Absent: respiratory distress, wheezes, rales, rhonchi, stridor Cardiovascular Exam: Present: regular rate, normal rhythm, normal heart sounds. Absent: systolic murmur, diastolic murmur, rubs, gallop GI/Abdominal exam: Present: soft. Absent: distended, tenderness, guarding, rebound, rigid, mass Extremities exam: Present: normal inspection, normal capillary refill. Absent: pedal edema, calf tenderness Back exam: Present: normal inspection. Absent: CVA tenderness (R), CVA tenderness (L) Neurological exam: Present: alert, oriented X3, CN II-XII intact, motor sensory deficit Expanded Neurological exam: Present: protecting the airway Patient oriented to: Present: person, place, time Speech: Present: fluid speech Cranial nerves: EOM's Intact: Normal, Tongue Deviation: Normal, Facial Sensation: Normal Motor strength exam: LUE: 5, RLE: 5, LLE: 5 Eye Response: (4) open spontaneously Motor Response: (6) obeys commands Verbal Response: (5) oriented Skin exam: Present: warm, dry, intact, normal color. Absent: rash Stroke MDM - Lab Data Result diagrams: 12/30/19 22:51 12/30/19 22:51 Lab Results 12/30/19 12/30/19 12/30/19 Range/Units 22:15 22:51 22:51 WBC 6.7 (3.8-10.6) k/uL RBC 4.26 L (4.30-5.90) m/uL Hgb 13.9 (13.0-17.5) gm/dL Hct 42.4 (39.0-53.0) % MCV 99.5 (80.0-100.0) fL MCH 32.6 (25.0-35.0) pg MCHC 32.8 (31.0-37.0) g/dL RDW 13.1 (11.5-15.5) % Plt Count 256 (150-450) k/uL Neutrophils % 46 % Lymphocytes % 37 % Monocytes % 6 % Eosinophils % 5 % Basophils % 2 % Neutrophils # 3.1 (1.3-7.7) k/uL Lymphocytes # 2.5 (1.0-4.8) k/uL Monocytes # 0.4 (0-1.0) k/uL Eosinophils # 0.4 (0-0.7) k/uL Basophils # 0.2 (0-0.2) k/uL PT (9.0-12.0) sec INR (<1.2) APTT (22.0-30.0) sec Sodium (137-145) mmol/L Potassium (3.5-5.1) mmol/L Chloride (98-107) mmol/L Carbon Dioxide (22-30) mmol/L Anion Gap mmol/L BUN (9-20) mg/dL Creatinine (0.66-1.25) mg/dL Est GFR (CKD-EPI)AfAm (>60 ml/min/1.73 sqM) Est GFR (CKD-EPI)NonAf (>60 ml/min/1.73 sqM) Glucose (74-99) mg/dL POC Glucose (mg/dL) 110 H (75-99) mg/dL POC Glu Roof Panel [facility] JESUS Cassandra Sandoval Calcium (8.4-10.2) mg/dL Total Bilirubin (0.2-1.3) mg/dL AST (17-59) U/L ALT (4-49) U/L Alkaline Phosphatase (38-126) U/L Creatine Kinase 2100 H* (55-170) U/L CK-MB (CK-2) (0.0-2.4) ng/mL Troponin I (0.000-0.034) ng/mL Total Protein (6.3-8.2) g/dL Albumin (3.5-5.0) g/dL 12/30/19 12/30/19 12/30/19 Range/Units 22:51 22:51 22:51 WBC (3.8-10.6) k/uL RBC (4.30-5.90) m/uL Hgb (13.0-17.5) gm/dL Hct (39.0-53.0) % MCV (80.0-100.0) fL MCH (25.0-35.0) pg MCHC (31.0-37.0) g/dL RDW (11.5-15.5) % Plt Count (150-450) k/uL Neutrophils % % Lymphocytes % % Monocytes % % Eosinophils % % Basophils % % Neutrophils # (1.3-7.7) k/uL Lymphocytes # (1.0-4.8) k/uL Monocytes # (0-1.0) k/uL Eosinophils # (0-0.7) k/uL Basophils # (0-0.2) k/uL PT 10.0 (9.0-12.0) sec INR 1.0 (<1.2) APTT 23.9 (22.0-30.0) sec Sodium 138 (137-145) mmol/L Potassium 3.7 (3.5-5.1) mmol/L Chloride 102 (98-107) mmol/L Carbon Dioxide 23 (22-30) mmol/L Anion Gap 13 mmol/L BUN 10 (9-20) mg/dL Creatinine 0.60 L (0.66-1.25) mg/dL Est GFR (CKD-EPI)AfAm >90 (>60 ml/min/1.73 sqM) Est GFR (CKD-EPI)NonAf >90 (>60 ml/min/1.73 sqM) Glucose 105 H (74-99) mg/dL POC Glucose (mg/dL) (75-99) mg/dL POC Glu Roof Panel [facility] ID Calcium 9.0 (8.4-10.2) mg/dL Total Bilirubin 0.2 (0.2-1.3) mg/dL AST 92 H (17-59) U/L ALT 45 (4-49) U/L Alkaline Phosphatase 86 (38-126) U/L Creatine Kinase (55-170) U/L CK-MB (CK-2) (0.0-2.4) ng/mL Troponin I 0.064 H* (0.000-0.034) ng/mL Total Protein 7.4 (6.3-8.2) g/dL Albumin 4.1 (3.5-5.0) g/dL 12/30/19 Range/Units 22:51 WBC (3.8-10.6) k/uL RBC (4.30-5.90) m/uL Hgb (13.0-17.5) gm/dL Hct (39.0-53.0) % MCV (80.0-100.0) fL MCH (25.0-35.0) pg MCHC (31.0-37.0) g/dL RDW (11.5-15.5) % Plt Count (150-450) k/uL Neutrophils % % Lymphocytes % % Monocytes % % Eosinophils % % Basophils % % Neutrophils # (1.3-7.7) k/uL Lymphocytes # (1.0-4.8) k/uL Monocytes # (0-1.0) k/uL Eosinophils # (0-0.7) k/uL Basophils # (0-0.2) k/uL PT (9.0-12.0) sec INR (<1.2) APTT (22.0-30.0) sec Sodium (137-145) mmol/L Potassium (3.5-5.1) mmol/L Chloride (98-107) mmol/L Carbon Dioxide (22-30) mmol/L Anion Gap mmol/L BUN (9-20) mg/dL Creatinine (0.66-1.25) mg/dL Est GFR (CKD-EPI)AfAm (>60 ml/min/1.73 sqM) Est GFR (CKD-EPI)NonAf (>60 ml/min/1.73 sqM) Glucose (74-99) mg/dL POC Glucose (mg/dL) (75-99) mg/dL POC Glu Roof Panel [facility] ID Calcium (8.4-10.2) mg/dL Total Bilirubin (0.2-1.3) mg/dL AST (17-59) U/L ALT (4-49) U/L Alkaline Phosphatase (38-126) U/L Creatine Kinase (55-170) U/L CK-MB (CK-2) 7.1 H (0.0-2.4) ng/mL Troponin I (0.000-0.034) ng/mL Total Protein (6.3-8.2) g/dL Albumin (3.5-5.0) g/dL - EKG Data -: EKG Interpreted by Me EKG shows normal: sinus rhythm, axis (Normal), intervals (Normal), QRS complexes (Normal), ST-T waves (Normal) Rate: tachycardia (Rate 102 BPM) Past Medical History Past Medical History: Asthma, Coronary Artery Disease (CAD), Chest Pain / Angina, COPD, CVA/TIA, GERD/Reflux, Hyperlipidemia, Hypertension, Myocardial Infarction (SC), Osteoarthritis (OA), Pneumonia Additional Past Medical History / Comment(s): 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 Last Myocardial Infarction Date:: 07/2015 History of Any Multi-Drug Resistant Organisms: MRSA Date of last positivie culture/infection: 2003 MDRO Source:: chin Past Surgical History: Heart Catheterization, Heart Catheterization With Stent, Hernia Repair, Orthopedic Surgery Additional Past Surgical History / Comment(s): Multiple angioplasties/stents, bilateral inguinal hernia repairs, R hip hemiarthroplasty, left elbow ulnar nerve sx, left shoulder rotator cuff repair, EGD with precancerous polypectomy/ulerated esophagus, colonoscopy, bronchoscopy Past Anesthesia/Blood Transfusion Reactions: No Reported Reaction Date of Last Stent Placement:: 07/2015 Past Psychological History: Anxiety, Depression Smoking Status: Current every day smoker Past Alcohol Use History: Heavy Past Drug Use History: None Reported - Past Family History Mother Family Medical History: COPD, Coronary Artery Disease (CAD), Deep Vein Thrombosis (DVT), Hypertension Additional Family Medical History / Comment(s): Back surgery and a Hx of alcohol abuse. Mother is age 76 years. Further hx unknown. Father Family Medical History: Congestive Heart Failure (CHF) Additional Family Medical History / Comment(s): Father at age 53. Hx ETOH abuse. Further HX unknown. Course Vital Signs 12/30/19 12/31/19 12/31/19 22:23 01:36 01:45 Temperature 98 F 98 F 98.3 F Pulse Rate 68 65 Pulse Rate [ 92 Pulse Oximetery ] Respiratory 20 18 18 Rate Blood Pressure 131/94 122/94 Blood Pressure 154/88 [Right Arm] O2 Sat by Pulse 99 99 95 Oximetry Disposition Clinical Impression: Chest pain, Troponin level elevated, Nerve palsy, Rhabdomyolysis Disposition: ADMITTED IP TO THIS HOSP Condition: Stable Is patient prescribed a controlled substance at d/c from ED?: No
[2019-12-30 23:47] LABS: Basophils # (A) 0.2 k/uL (0-0.2); Basophils % (A) 2 %; Eosinophils # (A) 0.4 k/uL (0-0.7); Eosinophils % (A) 5 %; HCT 42.4 % (39.0-53.0); HGB 13.9 gm/dL (13.0-17.5); Lymphocytes # (A) 2.5 k/uL (1.0-4.8); Lymphocytes % (A) 37 %; MCH 32.6 pg (25.0-35.0); MCHC 32.8 g/dL (31.0-37.0); MCV 99.5 fL (80.0-100.0); Mean Platelet Volume 8.1; Monocytes # (A) 0.4 k/uL (0-1.0); Monocytes % (A) 6 %; Neutrophils # (A) 3.1 k/uL (1.3-7.7); Neutrophils % (A) 46 %; Platelet Count 256 k/uL (150-450); RBC 4.26 m/uL (4.30-5.90); RDW 13.1 % (11.5-15.5); WBC 6.7 k/uL (3.8-10.6)
[2019-12-30 23:55] LABS: ALT 45 U/L (4-49); AST 92 U/L (17-59); African American GFR (CKD) >90 (>60 ml/min/1.73 sqM); Albumin 4.1 g/dL (3.5-5.0); Alkaline Phosphatase 86 U/L (38-126); Anion Gap 13 mmol/L; Blood Urea Nitrogen 10 mg/dL (9-20); Carbon Dioxide 23 mmol/L (22-30); Chloride 102 mmol/L (98-107); Glucose 105 mg/dL (74-99); Non-African American GFR(CKD) >90 (>60 ml/min/1.73 sqM); Potassium 3.7 mmol/L (3.5-5.1); Sodium 138 mmol/L (137-145); Total Bilirubin 0.2 mg/dL (0.2-1.3); Total Protein 7.4 g/dL (6.3-8.2)
[2019-12-30 23:56] LABS: Partial Thromboplastin Time 23.9 sec (22.0-30.0)
--- NOTE | 2019-12-31 00:01 | CT ---
EXAMINATION TYPE: CT brain wo con for TPA DATE OF EXAM: 12/30/2019 COMPARISON: 08/25/2019 HISTORY: AMS CT DLP: 1095.4 mGycm Automated exposure control for dose reduction was used. There is diffuse cerebral cortical atrophy. There is no mass effect nor midline shift. There is no si gn of intracranial hemorrhage. There is hypodensity right occipital lobe related to old large cortica l infarct. The calvarium is intact. IMPRESSION: Cerebral atrophy. Old right occipital lobe cortical infarct. No acute intracranial abnormality. No ch robert.
--- NOTE | 2019-12-31 00:11 | XR ---
EXAMINATION TYPE: XR chest 1V portable DATE OF EXAM: 12/30/2019 COMPARISON: 05/25/2019 HISTORY: Altered mental status TECHNIQUE: FINDINGS: Heart is normal. Lungs are clear of consolidation. There are no hilar masses. There is mild pulmonary hyperinflation. Mediastinum is normal. Bony thorax appears intact. There is small reticular density right upper lobe consistent with scarring. IMPRESSION: There is probably some COPD. No evidence of acute lung disease. No adverse change compare d to old exam.
--- NOTE | 2019-12-31 00:46 | US ---
EXAMINATION TYPE: US venous doppler duplex UE RT DATE OF EXAM: 12/31/2019 COMPARISON: NONE CLINICAL HISTORY: R/O DVT. Right arm pain SIDE PERFORMED: right Right Arm: Negative for DVT There is venous flow demonstrated in the jugular and subclavian and axillary and brachial veins. IMPRESSION: No evidence of deep vein thrombosis in the right arm.
[2019-12-31] MEDS ORDERED: HEPARIN SODIUM,PORCINE 5,000 UNIT/ML 1 ML VIAL IV ONE (01:19)
[2019-12-31] MEDS ORDERED: NITROGLYCERIN SL TABS 0.4 MG TAB SUBLINGUAL PRN (01:19)
[2019-12-31] MEDS ORDERED: SODIUM CHLORIDE 0.9% 1,000 ML IV STA (01:24)
[2019-12-31] MEDS ORDERED: HEPARIN SOD,PORK IN 0.45% NACL 25,000 UNIT in 0.45% NACL 1 250ML.BAG IV SCH (01:30)
[2019-12-31] MEDS ORDERED: THIAMINE 100 MG/ML 2 ML VIAL IM STA (02:42)
[2019-12-31] MEDS ORDERED: LORazepam 2 MG/ML INJ IV PRN ×2 (02:42)
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
[2019-12-31] MEDS ORDERED: HEPARIN SODIUM,PORCINE 5,000 UNIT/ML 1 ML VIAL SQ SCH (08:00)
[2019-12-31] MEDS: MULTIVITAMINS, THERA 1 EACH TAB PO SCH (09:06)
[2019-12-31] MEDS: ATORVASTATIN 80 MG TAB PO SCH (09:06)
[2019-12-31] MEDS: CLOPIDOGREL 75 MG TAB PO SCH (09:06)
[2019-12-31] MEDS: FOLIC ACID 1 MG TAB PO SCH (09:06)
[2019-12-31] MEDS: METOPROLOL TARTRATE 25 MG TAB PO SCH (09:06)
[2019-12-31] MEDS: LISINOPRIL 10 MG TAB PO SCH (09:06)
[2019-12-31] MEDS: ASPIRIN 81 MG PO SCH (09:08)
--- NOTE | 2019-12-31 12:21 | P.PN ---
Progress Note - Text Progress Note Date: 12/31/19 Patient was seen and examined, his symptoms are probably due to peripheral neuropathy possibly the radial nerve the involved. Only the lateral part of his right arm has numbness, the medial part is okay. He has significant weakness in his hand and fingers. Further diagnostic evaluation will be done according to neurology.
[2019-12-31] MEDS: IBUPROFEN 400 MG TAB PO PRN (12:26)
--- NOTE | 2019-12-31 13:01 | P.CNNES ---
History of Present Illness Consult date: 12/31/19 Requesting physician: Mir Reynolds Reason for Consult: Right arm weakness and numbness History of Present Illness: Patient is a 59-year-old right-handed male, who states that he woke up about 5-7 days ago on one morning and felt his right arm was weak and numb. It was numb from the shoulder all the way to the tips of the fingers, involving all 5 fingers. He stayed home, thinking symptoms would go away, but as the symptoms persisted, he came to the ER, and arrived yesterday at 10:23 PM. Patient denies any slurred speech, facial droop or new problem with the vision, or hoarseness sore throat dysphagia, or symptoms in the legs or balance. Patient's blood pressure was 131/94, pulse rate 68 and temperature 98.0. Patient apparently was not a candidate for TPA, as his symptoms has been present for more than 5 days. Patient underwent computed tomography scan of the head, which revealed cerebral atrophy. Old right occipital lobe cortical infarct. No acute intracranial abnormality. Chest x-ray showed some COPD. No evidence of acute lung disease. No evidence of DVT in the right arm. EKG shows sinus tachycardia. Possible left atrial enlargement. Patient's blood tests shows elevated CPK 2100, CK MB is 7.1. Troponins are mildly elevated, renal functions normal. Zhou virus PCR negative. Patient states he has history of a stroke about a year ago. He denies diabetes. Has hypertension. He smokes 2 packs per day for last 50 years. Patient also drinks couple beers a day to 6 packs and a pint a day. He has been drinking like this for "years". Patient's home medication list states that he should be on aspirin 81 mg, Plavix 75 mg and Lipitor 80 mg. Patient apparently is only taking aspirin 81 mg daily. He has stopped taking statins and Plavix for the last 1 year. He also takes ibuprofen. No other medications as listed it is home medications. Review of Systems As mentioned above in detail. Patient denies any chest pain. Patient does have mild shortness of breath and cough, which is chronic. He does have chronic tobacco use, COPD. Denies any back or neck pain. His right arm does hurt, in fact whole body hurts. All other review of systems unremarkable. Past Medical History Past Medical History: Asthma, Coronary Artery Disease (CAD), Chest Pain / Angina, COPD, CVA/TIA, GERD/Reflux, Hyperlipidemia, Hypertension, Myocardial Infarction (OH), Osteoarthritis (OA), Pneumonia Additional Past Medical History / Comment(s): Hx of 4 OH's last one being on 07/2015, CVA with tunnel vision bilaterally, PUD, precancerous esophageal polyps removed, esophagial ulceration, generalized arthritis, sinus problems, past r hip fracture with surgery, past L lower leg fracture/casted, past R arm f racture/casted, bilateral clavicles fractrued, circumcism. Last Myocardial Infarction Date:: 07/2015 History of Any Multi-Drug Resistant Organisms: MRSA Date of last positivie culture/infection: 2003 MDRO Source:: chin Past Surgical History: Heart Catheterization, Heart Catheterization With Stent, Hernia Repair, Orthopedic Surgery Additional Past Surgical History / Comment(s): Multiple angioplasties/stents, bilateral inguinal hernia repairs, R hip hemiarthroplasty, left elbow ulnar nerve sx, left shoulder rotator cuff repair, EGD with precancerous polypectomy/ulerated esophagus, colonoscopy, bronchoscopy Past Anesthesia/Blood Transfusion Reactions: No Reported Reaction Date of Last Stent Placement:: 07/2015 Past Psychological History: Anxiety, Depression Smoking Status: Current every day smoker Past Alcohol Use History: Heavy Past Drug Use History: None Reported - Past Family History Mother Family Medical History: COPD, Coronary Artery Disease (CAD), Deep Vein Thrombosis (DVT), Hypertension Additional Family Medical History / Comment(s): Back surgery and a Hx of alcohol abuse. Mother is age 76 years. Further hx unknown. Father Family Medical History: Congestive Heart Failure (CHF) Additional Family Medical History / Comment(s): Father at age 53. Hx ETOH abuse. Further HX unknown. Medications and Allergies Home Medications Medication Instructions Recorded Confirmed Type Nitroglycerin Sl Tabs [Nitrostat] 0.4 mg SUBLINGUAL Q5M PRN tab 05/26/19 12/31/19 Rx Aspirin 81 mg PO DAILY #30 chew 08/29/19 12/31/19 Rx Atorvastatin [Lipitor] 80 mg PO DAILY #30 tab 08/29/19 12/31/19 Rx Clopidogrel [Plavix] 75 mg PO DAILY #30 tablet 08/29/19 12/31/19 Rx Lisinopril [Zestril] 10 mg PO DAILY #30 tab 08/29/19 12/31/19 Rx Metoprolol Tartrate [Lopressor] 25 mg PO DAILY #30 tab 08/29/19 12/31/19 Rx Ascorbic Acid [Vitamin C] 500 mg PO DAILY 12/31/19 12/31/19 History Ibuprofen 400 mg PO Q6H PRN 12/31/19 12/31/19 History Omeprazole Magnesium [PriLOSEC OTC] 20 mg PO DAILY 12/31/19 12/31/19 History Allergies Allergy/AdvReac Type Severity Reaction Status Date / Time Penicillins AdvReac Nausea & Verified 12/31/19 08:24 Vomiting & Diarrhea Physical Examination - Vital Signs Vital Signs: Vital Signs Temp Pulse Pulse Resp BP BP Pulse Ox 12/31/19 08:00 87 20 12/31/19 03:29 98.1 F 87 20 164/86 96 12/31/19 01:45 98.3 F 92 18 154/88 95 12/31/19 01:36 98 F 65 18 122/94 99 12/30/19 22:23 98 F 68 20 131/94 99 Intake and Output 12/30/19 12/31/19 12/31/19 22:59 06:59 14:59 Intake Total 240 Output Total 0 Balance 240 Intake: Oral 240 Output: Urine 0 Other: Weight 70.307 kg 70.1 kg On examination, patient is an elderly male, appears older than his stated age. He is alert and awake, fully oriented. Speech and language functions are normal. Attention and concentration fund of knowledge is adequate. Cranial nerves pupils are round and reactive to light, visual gong revealed complete left homonomous hemianopia, likely from his previous stroke, extraocular muscles are intact. Face revealed flattening of the right nasolabial fold. Tongue protrudes on midline. Palatal elevation and sensation normal. Hearing and shoulder shrug normal. On muscle strength testing patient has moderate right pronator drift, but did not hit the bed. Muscle strength is normal strength of the left arm and left leg. On the right side deltoid is 5, biceps 4-, triceps 4-, wrist extension 4, finger extension 3+, emergency management program specialist to. The right lower extremity revealed right hip flexion is 5-whereas the rest of the strength is normal. Reflexes are 1+ and plantars are downgoing bilaterally. Sensory to touch is decreased in the right arm as compared to the left. Temperature was equal bilaterally. Patient has significant ataxia for [id number] on the right. Tone is decreased in the right hand and wrist. No obvious bruit, S1 and S2 audible. No papilledema. Abdomen soft nontender. Patient does have some rhonchi. Results - Laboratory Findings CBC and BMP: 12/30/19 22:51 12/30/19 22:51 Abnormal Lab Findings: Abnormal Labs 12/30/19 12/30/19 12/30/19 22:15 22:51 22:51 RBC 4.26 L Creatinine Glucose POC Glucose (mg/dL) 110 H AST Creatine Kinase 2100 H* CK-MB (CK-2) Troponin I 12/30/19 12/30/19 12/30/19 22:51 22:51 22:51 RBC Creatinine 0.60 L Glucose 105 H POC Glucose (mg/dL) AST 92 H Creatine Kinase CK-MB (CK-2) 7.1 H Troponin I 0.064 H* 12/31/19 12/31/19 04:46 04:46 RBC Creatinine Glucose POC Glucose (mg/dL) AST Creatine Kinase 1294 H* CK-MB (CK-2) Troponin I 0.061 H* Assessment and Plan Assessment: * Probable acute ischemic stroke with right arm paresis. Mechanism possibly from small vessel disease, although embolic source needs to be ruled out. * Hypertension * Chronic heavy tobacco use. * History of CVA right occipital lobe, with left homonymous hemianopia * Hyperlipidemia * Alcoholism. * Noncompliance with medications Plan: * MRI of the brain to evaluate for acute stroke. * Carotid Doppler to rule out carotid stenosis. * We will also check 2-D echo with bubble study to rule out PFO. * Hemoglobin A1c. * Patient has been on aspirin 81 mg daily for a year. We will also add Plavix 75 mg daily and high-dose statins. * Watch for liver enzymes while being on statins. Elevated liver enzymes could be from alcoholism. * Strongly recommended tobacco cessation. * Watch for alcohol withdrawal.
--- NOTE | 2019-12-31 15:00 | MR ---
MR brain without contrast HISTORY: Acute cerebrovascular accident Multiplanar multisequence imaging through the brain Correlation to CT brain 12/30/2019 The encephalomalacia seen on CT corresponds to cervical spinal fluid signal intensity on all pulse se quences and is consistent with encephalomalacia, there is associated ex vacuo phenomenon of the poste rior horn the right lateral ventricle. Increased signal in the subcortical white matter, periventricu lar white matter at this level on T2 and inversion recovery sequences corresponds to what is likely l ocal gliosis, chronic small vessel ischemic changes or demyelination, periventricular white matter sh ows hyperintensity bilaterally, there are some areas of subcortical hyperintensity additionally on in version recovery T2-weighted sequences. There is no mass effect. No restricted diffusion. No hemorrha ge or hydrocephalus. Corpus callosum shows some mild thinning anteriorly. Pituitary gland, cervical m edullary junction, cerebellopontine angles are unremarkable. Cortical atrophy is noted. The orbits sh ow symmetric appearance. IMPRESSION: Findings corresponding with CT and represent chronic small vessel ischemic changes, chron ic infarct of the right occipital lobe.
[2019-12-31] MEDS: ACETAMINOPHEN TAB 325 MG TAB PO PRN (15:33)
--- NOTE | 2019-12-31 16:28 | US ---
EXAMINATION TYPE: US carotid duplex BILAT DATE OF EXAM: 12/31/2019 COMPARISON: US 2012 CLINICAL HISTORY: Acute CVA. CVA, exam done portable, history of right ICA occlusion. EXAM MEASUREMENTS: RIGHT: Peak Systolic Velocity (PSV) cm/sec ----- Right CCA: 96.9 ----- Right ICA: n/a ----- Right ECA: 107.0 ICA/CCA ratio: n/a RIGHT: End Diastole cm/sec ----- Right CCA: 0.0 ----- Right ICA: n/a ----- Right ECA: 14.0 LEFT: Peak Systolic Velocity (PSV) cm/sec ----- Left CCA: 80.8 ----- Left ICA: 137.2 ----- Left ECA: 140.5 ICA/CCA ratio: 1.7 LEFT: End Diastole cm/sec ----- Left CCA: 29.9 ----- Left ICA: 46.5 ----- Left ECA: 25.3 VERTEBRALS (direction of flow): Right Vertebral: Antegrade Left Vertebral: Antegrade ICA to CCA ratios Rhythm: Normal Bilateral intimal thickening, plaque bilateral bulb, elevated velocities: left proximal ICA and left proximal ECA, occluded right ICA. Grayscale, color Doppler, spectral Doppler imaging performed of the carotid arteries. There is a righ t internal carotid artery occlusion, there is lack of color flow. IMPRESSION: Right internal carotid artery occlusion is chronic
[2019-12-31] MEDS: THIAMINE 100 MG TAB PO SCH (17:44)
[2019-12-31 21:33] LABS: Hemoglobin A1C 5.4 % (4.0-6.0)
[2020-01-01] MEDS: ACETAMINOPHEN TAB 325 MG TAB PO PRN ×4 (01:01→20:38)
[2020-01-01 06:54] LABS: Cholesterol 129 mg/dL (<200); Creatine Kinase 548 U/L (55-170); HDL Cholesterol 29 mg/dL (40-60); LDL Cholesterol,Calculated 80 mg/dL (0-99); Triglycerides 100 mg/dL (<150)
[2020-01-01] MEDS: THIAMINE 100 MG TAB PO SCH ×2 (06:58→15:18)
[2020-01-01] MEDS: ASPIRIN 81 MG PO SCH (08:07)
[2020-01-01] MEDS: LISINOPRIL 10 MG TAB PO SCH (08:07)
[2020-01-01] MEDS: FOLIC ACID 1 MG TAB PO SCH (08:07)
[2020-01-01] MEDS: MULTIVITAMINS, THERA 1 EACH TAB PO SCH (08:07)
[2020-01-01] MEDS: ATORVASTATIN 80 MG TAB PO SCH (08:07)
[2020-01-01] MEDS: IBUPROFEN 400 MG TAB PO PRN ×3 (08:08→20:39)
[2020-01-01] MEDS: CLOPIDOGREL 75 MG TAB PO SCH (08:18)
[2020-01-01] MEDS: METOPROLOL TARTRATE 25 MG TAB PO SCH ×2 (08:18→15:16)
[2020-01-01] MEDS ORDERED: ASPIRIN 325 MG TAB PO SCH (09:00)
--- NOTE | 2020-01-01 10:00 | ECHOF ---
Referral Reason:Acute CVA MEASUREMENTS -------- HEIGHT: 177.8 cm WEIGHT: 69.9 kg BP: 144/86 RVIDd: 4.2 cm (< 3.3) IVSd: 1.2 cm (0.6 - 1.1) LVIDd: 3.8 cm (3.9 - 5.3) LVPWd: 1.4 cm (0.6 - 1.1) IVSs: 1.8 cm LVIDs: 2.3 cm LVPWs: 2.1 cm Ao Diam: 3.1 cm (2.0 - 3.7) AV Cusp: 2.1 cm (1.5 - 2.6) MV EXCURSION: 17.007 mm (> 18.000) MV EF SLOPE: 92 mm/s (70 - 150) EPSS: 0.5 cm MV E Kevin: 0.88 m/s MV DecT: 190 ms MV A Kevin: 0.67 m/s MV E/A Ratio: 1.32 RAP: 5.00 mmHg RVSP: 19.91 mmHg FINDINGS -------- Sinus rhythm. This was a technically adequate study. The left ventricular size is normal. There is mild concentric left ventricular hypertrophy. Overa ll left ventricular systolic function is normal with, an EF between 55 - 60 %. The diastolic fillin g pattern is normal for the age of the patient {E/E'}. The right ventricle is moderately enlarged. Normal LA size by volume 22+/-6 ml/m2. The right atrium is mildly enlarged. Contrast study was performed with 3 iv injections of 8 ccs of agitated normal saline, at rest, with c ough and post-Valsalva maneuver. Interatrial and interventricular septum intact. No shunt by bubble study There is no evidence of aortic regurgitation. There is no evidence of aortic stenosis. No mitral regurgitation. Mild tricuspid regurgitation present. There is no evidence of pulmonary hypertension. The right v entricular systolic pressure, as measured by Doppler, is 19.91mmHg. There is no pulmonic regurgitation present. The aortic root size is normal. Normal inferior vena cava with normal inspiratory collapse consistent with estimated right atrial pre ssure of 5 mmHg. There is no pericardial effusion. CONCLUSIONS -------- 1. Sinus rhythm. 2. This was a technically adequate study. 3. The left ventricular size is normal. 4. There is mild concentric left ventricular hypertrophy. 5. Overall left ventricular systolic function is normal with, an EF between 55 - 60 %. 6. The diastolic filling pattern is normal for the age of the patient {E/E'} 7. The right ventricle is moderately enlarged. 8. Normal LA size by volume 22+/-6 ml/m2. 9. The right atrium is mildly enlarged. 10. Contrast study was performed with 3 iv injections of 8 ccs of agitated normal saline, at rest, wi th cough and post-Valsalva maneuver. 11. Interatrial and interventricular septum intact. 12. There is no evidence of aortic regurgitation. 13. There is no evidence of aortic stenosis. 14. No mitral regurgitation. 15. Mild tricuspid regurgitation present. 16. There is no evidence of pulmonary hypertension. 17. The right ventricular systolic pressure, as measured by Doppler, is 19.91mmHg. 18. There is no pulmonic regurgitation present. 19. The aortic root size is normal. 20. Normal inferior vena cava with normal inspiratory collapse consistent with estimated right atrial pressure of 5 mmHg. 21. There is no pericardial effusion. SCHOOL COUNSELOR: Kelley Sena RDCS
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
--- NOTE | 2020-01-01 13:27 | P.CONS ---
History of Present Illness - Chief Complaint Gait disturbance, right arm weakness and new and old right leg weakness - History of Present Illness I had the opportunity see patient for inpatient rehab consultation with regard to gait disturbance, right arm and leg weakness. Patient admitted to [facility] my 11 with right arm weakness and numbness of 5-6 duration. Patient has history of right leg weakness and this appears to be due to a muscle dislocation anterior thigh compartment. Seen in consultation by Dr. No who diagnosed acute stroke most likely. Note head CT and brain MRI demonstrated chronic change including chronic right occipital infarct. Chest x-ray consistent with COPD. Venous Doppler right arm negative. Carotid Doppler with chronic right internal carotid change only. PT reports supervision for bed mobility moderate assistance for transfers and gait 30 feet with roller walker. OT prescribed. Previous functional history as elicited from patient: 59-year-old right-handed white male who is single lives in one floor home with friend. Patient retired. Friend does the cooking and the friend's sister does the driving. Patient describes independent with own laundry, sponge bath, gait with standard cane. Standard cane [place] lossing hours roller walker. Does not have a regular PMD. Admits to 2 packs per day and denies alcohol. Family history both parents were smokers in drinkers. Review of Systems Review of systems: ENT: Denies sneezes or discharge. Eyes: Denies discharge or photophobia. Cardiac: Denies chest pain or palpitation. Pulmonary: Denies cough or shortness of breath. Gastrointestinal: Denies nausea, emesis, constipation, diarrhea. Genitourinary: Denies discharge or frequency. Musculoskeletal: Denies muscle or bone aches. Neurologic: New weakness right arm and old weakness right leg. Right arm numbness new. Endocrine: Denies shakes or sweats. Oncology: Denies cancers. Dermatologic: Denies rash, itching, pruritus. ALLERGY/immunology: Denies sneezes, rashes. Past Medical History Past Medical History: Asthma, Coronary Artery Disease (CAD), Chest Pain / Angina, COPD, CVA/TIA, GERD/Reflux, Hyperlipidemia, Hypertension, Myocardial Infarction ([place]), Osteoarthritis (OA), Pneumonia Additional Past Medical History / Comment(s): Hx of 4 [place]'s last one being on 07/2015, CVA with tunnel vision bilaterally, PUD, precancerous esophageal polyps removed, esophagial ulceration, generalized arthritis, sinus problems, past r hip fracture with surgery, past L lower leg fracture/casted, past R arm fracture/casted, bilateral clavicles fractrued, circumcism. Last Myocardial Infarction Date:: 07/2015 History of Any Multi-Drug Resistant Organisms: MRSA Year Discovered:: 2003 MDRO Source:: chin Past Surgical History: Heart Catheterization, Heart Catheterization With Stent, Hernia Repair, Orthopedic Surgery Additional Past Surgical History / Comment(s): Multiple angioplasties/stents, bilateral inguinal hernia repairs, R hip hemiarthroplasty, left elbow ulnar nerve sx, left shoulder rotator cuff repair, EGD with precancerous polypectomy/ulerated esophagus, colonoscopy, bronchoscopy Past Anesthesia/Blood Transfusion Reactions: No Reported Reaction Date of Last Stent Placement:: 07/2015 Past Psychological History: Anxiety, Depression Smoking Status: Current every day smoker Past Alcohol Use History: Heavy Past Drug Use History: None Reported - Past Family History Mother Family Medical History: COPD, Coronary Artery Disease (CAD), Deep Vein Thrombosis (DVT), Hypertension Additional Family Medical History / Comment(s): Back surgery and a Hx of alcohol abuse. Mother is age 76 years. Further hx unknown. Father Family Medical History: Congestive Heart Failure (CHF) Additional Family Medical History / Comment(s): Father at age 53. Hx ETOH abuse. Further HX unknown. Medications and Allergies Home Medications Medication Instructions Recorded Confirmed Type Nitroglycerin Sl Tabs [Nitrostat] 0.4 mg SUBLINGUAL Q5M PRN tab 05/26/19 12/31/19 Rx Aspirin 81 mg PO DAILY #30 chew 08/29/19 12/31/19 Rx Atorvastatin [Lipitor] 80 mg PO DAILY #30 tab 08/29/19 12/31/19 Rx Clopidogrel [Plavix] 75 mg PO DAILY #30 tablet 08/29/19 12/31/19 Rx Lisinopril [Zestril] 10 mg PO DAILY #30 tab 08/29/19 12/31/19 Rx Metoprolol Tartrate [Lopressor] 25 mg PO DAILY #30 tab 08/29/19 12/31/19 Rx Ascorbic Acid [Vitamin C] 500 mg PO DAILY 12/31/19 12/31/19 History Omeprazole Magnesium [PriLOSEC OTC] 20 mg PO DAILY 12/31/19 12/31/19 History Allergies Allergy/AdvReac Type Severity Reaction Status Date / Time Penicillins AdvReac Nausea & Verified 12/31/19 08:24 Vomiting & Diarrhea Physical Exam Vitals: Vital Signs Temp Pulse Resp BP Pulse Ox 01/01/20 11:45 98 F 66 18 137/82 97 01/01/20 08:00 97 F L 81 16 131/80 97 01/01/20 04:00 97.9 F 77 16 128/74 96 01/01/20 00:00 98.2 F 72 16 128/72 96 12/31/19 20:00 98.5 F 80 16 106/81 96 12/31/19 16:00 68 16 12/31/19 15:36 97.7 F 68 16 127/73 96 Intake and Output 12/31/19 01/01/20 01/01/20 22:59 06:59 14:59 Intake Total 420 Output Total 175 200 Balance -175 220 Intake: Oral 420 Output: Urine 175 200 Other: # Bowel Movements 1 Weight 66.5 kg Skin: Good color, texture, turgor. General: Thin build and comfortable appearance. Head: Normocephalic, atraumatic. Eyes: Symmetric. Pupils equal round. Ears: Symmetric. Hearing within normal limits. Mouth: Clear. Neck: Supple. Carotid without bruit. Cardiac: Regular rate and rhythm. Lungs: Clear anteriorly and posteriorly. Abdomen: Soft active nontender. Extremities: Normal tone. Neurological: Mental status: Alert, cooperative, pleasant. Cranial nerves: Symmetric facial tone and trapezius. Motor: Normal strength and isolation left arm and both legs. Right arm fair minus, poor at hand. Sensation: Intact throughout. DTRs: Symmetric and equal throughout. Mobility: Sits with assistance. Results CBC & Chem 7: 12/30/19 22:51 12/30/19 22:51 Labs: Abnormal Lab Results - Last 24 Hours (Table) 01/01/20 Range/Units 05:57 Creatine Kinase 548 H (55-170) U/L HDL Cholesterol 29 L (40-60) mg/dL Assessment and Plan (1) Nerve palsy Current Visit: Yes Status: Acute Code(s): G58.9 - MONONEUROPATHY, UNSPECIFIED SNOMED Code(s): 200863497 Plan: Impression: 1. Gait disturbance. 2. Right arm weakness stroke versus brachial plexopathy. History of previous stroke. 3. Right leg weakness with quadriceps muscle rupture old. 4. Alcohol and tobacco abuse. 5. Hypertension. 6. Dyslipidemia. 7. Coronary disease with history of [place]. 8. Osteoarthritis. 9. Asthma/COPD. comments and plan: At this time safety concerns noted by PT. Would await OT note. Have discussed possible inpatient rehab with patient's and he seems agreeable if necessary, which appears to be the case.
--- NOTE | 2020-01-01 13:44 | P.PN ---
Subjective Progress Note Date: 01/01/20 Patient denies changes in his condition. Patient tells me that his right arm has been hurting. He gets pain in the right arm from shoulder to the elbow, gets 10/10, for which he is getting Tylenol and ibuprofen. He has numbness from elbow down to the fingers of the right hand. No symptoms in the other 3 extremities. Patient denies any neck pain whatsoever. Neck is supple. He does have history of right quadriceps tendon rupture in the past, which is the cause of his mild right hip flexion weakness. Patient also has history of right ulnar nerve transposition surgery years ago. MRI of the brain came negative for acute stroke. Objective - Vital Signs Vital signs: Vital Signs Temp 98 F 01/01/20 11:45 Pulse 66 01/01/20 11:45 Resp 18 01/01/20 11:45 BP 137/82 01/01/20 11:45 Pulse Ox 97 01/01/20 11:45 Intake & Output 12/31/19 01/01/20 01/01/20 18:59 06:59 18:59 Intake Total 240 420 Output Total 600 175 200 Balance -360 -175 220 Weight 66.5 kg Intake: Oral 240 420 Output: Urine 600 175 200 Other: # Bowel Movements 1 - Exam Patient's mental status, speech and language functions are normal. Cranial nerves normal. On muscle strength testing the strength is normal in left arm and both legs except right hip flexion is 5- (perhaps related to previous quadriceps tendon rupture). In the right upper extremity, deltoid 5-, biceps 4 to 4-, triceps 4-, brachioradialis 4+, wrist extension 4+, wrist flexion 1-2, finger extension 3+, finger flexion 0, interossei 0. Sensory touch is decreased from right elbow down to all the fingers of right hand. - Labs CBC & Chem 7: 12/30/19 22:51 12/30/19 22:51 Labs: Abnormal Lab Results - Last 24 Hours (Table) 01/01/20 Range/Units 05:57 Creatine Kinase 548 H (55-170) U/L HDL Cholesterol 29 L (40-60) mg/dL Assessment and Plan Assessment: * Acute CVA ruled out. 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 * Hypertension * Chronic heavy tobacco use. * History of CVA right occipital lobe, with left homonymous hemianopia * Hyperlipidemia * Alcoholism. * Noncompliance with medications Plan: * MRI of the brain was negative for an acute stroke. There is some chronic small vessel ischemic change. Chronic right occipital lobe infarct. * We will check MRI of the right brachial plexus with and without contrast for possible brachial plexopathy. Suggest treatment with prednisone 60 mg daily for 7 days, and then may decrease by 10 mg every 2 days until off. * Carotid Doppler showed chronic right ICA occlusion, which has been present since 2012. No stenosis on the left side. * 2-D echo with bubble study revealed EF 55-60%. Mild concentric LVH. Normal left atrial size. Injection of agitated saline documented no ASD or PFO. * Hemoglobin A1c 5.4. * Continue aspirin 81 mg daily. Plavix only if indicated from a cardiac standpoint. * Watch for liver enzymes while being on statins. Elevated liver enzymes could be from alcoholism. * Strongly recommended tobacco cessation. * Suggest follow-up with a neurologist locally for EMG and nerve conduction velocity testing of right upper extremity.
[2020-01-01] MEDS: predniSONE 20 MG TAB PO SCH (17:30)
[2020-01-02] MEDS: ACETAMINOPHEN TAB 325 MG TAB PO PRN ×2 (04:23→18:07)
[2020-01-02] MEDS: IBUPROFEN 400 MG TAB PO PRN (04:23)
[2020-01-02] MEDS: THIAMINE 100 MG TAB PO SCH ×2 (06:33→16:49)
[2020-01-02] MEDS: FOLIC ACID 1 MG TAB PO SCH (08:03)
[2020-01-02] MEDS: CLOPIDOGREL 75 MG TAB PO SCH (08:03)
[2020-01-02] MEDS: LISINOPRIL 10 MG TAB PO SCH (08:03)
[2020-01-02] MEDS: MULTIVITAMINS, THERA 1 EACH TAB PO SCH (08:03)
[2020-01-02] MEDS: ASPIRIN 81 MG PO SCH (08:03)
[2020-01-02] MEDS: ATORVASTATIN 80 MG TAB PO SCH (08:03)
[2020-01-02] MEDS: predniSONE 20 MG TAB PO SCH (08:03)
--- NOTE | 2020-01-02 11:31 | P.PN ---
Subjective Progress Note Date: 01/02/20 Principal diagnosis: Right hand numbness Patient was seen and examined. Patient continues to report right arm numbness and clumsiness of his right hand. He has no other symptoms. Accepted to rehab. Objective - Vital Signs Vital signs: Vital Signs Temp 98 F 01/02/20 07:59 Pulse 79 01/02/20 07:59 Resp 16 01/02/20 07:59 BP 122/86 01/02/20 07:59 Pulse Ox 98 01/02/20 07:59 Intake & Output 01/01/20 01/02/20 01/02/20 18:59 06:59 18:59 Intake Total 660 240 Output Total 401 700 Balance 259 -700 240 Weight 60.5 kg Intake: Oral 660 240 Output: Urine 400 700 Urine/Stool Mix 1 Other: # Voids 0 2 - Exam General: [non toxic], [no distress], [appears at stated age] Derm: [warm], [dry] Head: [atraumatic], [normocephalic], [symmetric], [Good range of motion of the neck] Eyes: [EOMI], [no lid lag], [anicteric sclera] Mouth: [no lip lesion], [mucus membranes moist] Cardiovascular: [S1S2 reg], [no murmur], [positive posterior tibial pulse bilateral], Lungs: [CTA bilateral], [no rhonchi, no rales] , [no accessory muscle use] Abdominal: [soft], [ nontender to palpation], [no guarding], [no appreciable organomegaly] Ext: [no gross muscle atrophy], [no edema], [no contractures], [Tinnel and Phalen negative right hand] Neuro: [decreased strength in the right hand with inability to grasp objects, sensation decreased to touch in all aspects of the right hand extending into the right elbow] Psych: [Alert], [oriented], [appropriate affect] - Labs CBC & Chem 7: 12/30/19 22:51 12/30/19 22:51 Labs: Abnormal Lab Results - Last 24 Hours (Table) 01/02/20 Range/Units 05:37 Creatine Kinase 342 H (55-170) U/L Assessment and Plan Assessment: Right hand neuropathy -Stroke workup complete, negative for acute CVA -Patient would likely benefit from EMG and nerve conduction studies of the right upper extremity -PT and OT recommending QUE, PMR consulted, discussed with case management -Continue aspirin, Lipitor and Plavix -Follow neurology recommendations Elevated troponin with history of CAD -Troponins have been steady since previous admission -Also could be elevated due to rhabdomyolysis -Continue aspirin, Lipitor, Plavix and beta jose. -Follow cardiology in the outpatient setting. Alcohol abuse -[facility] protocol -Ativan as needed -Continue multivitamin, folic acid and thiamine Rhabdomyolysis -CPK downtrending -Encourage hydration by mouth [Stroke workup complete. Accepted to inpatient rehab. Neurology recommends MRI of the brachial plexus which can be done in an outpatient setting. DC today.]
[2020-01-02] MEDS ORDERED: LORazepam 1 MG TAB PO STA (14:01)
[2020-01-02] MEDS ORDERED: LORazepam 1 MG TAB PO PRN (15:38)
[2020-01-03] MEDS: LORazepam 2 MG/ML INJ IV PRN ×2 (00:49→11:16)
[2020-01-03] MEDS: THIAMINE 100 MG TAB PO SCH ×2 (06:38→17:51)
[2020-01-03] MEDS: MULTIVITAMINS, THERA 1 EACH TAB PO SCH (08:19)
[2020-01-03] MEDS: METOPROLOL TARTRATE 25 MG TAB PO SCH (08:19)
[2020-01-03] MEDS: LISINOPRIL 10 MG TAB PO SCH (08:20)
[2020-01-03] MEDS: ASPIRIN 81 MG PO SCH (08:20)
[2020-01-03] MEDS: ATORVASTATIN 80 MG TAB PO SCH (08:20)
[2020-01-03] MEDS: predniSONE 20 MG TAB PO SCH (08:20)
[2020-01-03] MEDS: FOLIC ACID 1 MG TAB PO SCH (08:20)
[2020-01-03] MEDS: CLOPIDOGREL 75 MG TAB PO SCH (08:20)
[2020-01-03] MEDS: IBUPROFEN 400 MG TAB PO PRN ×2 (11:14→20:11)
--- NOTE | 2020-01-03 11:41 | P.PN ---
Subjective Progress Note Date: 01/02/20 Patient denies changes in his condition. Patient continues to have right arm weakness. He continues to have pain in the right arm from shoulder to the elbow with numbness in the right arm distally. Does not appear to be in as much pain. Patient denies any neck pain whatsoever. Neck is supple. He does have history of right quadriceps tendon rupture in the past, which is the cause of his mild right hip flexion weakness. Patient also has history of right ulnar nerve transposition surgery years ago. MRI of the brain came negative for acute stroke. Objective - Vital Signs Vital signs: Vital Signs Temp 98.1 F 01/02/20 20:00 Pulse 85 01/02/20 20:00 Resp 16 01/02/20 20:00 BP 150/92 01/02/20 20:00 Pulse Ox 96 01/02/20 20:00 Intake & Output 01/02/20 01/02/20 01/03/20 06:59 18:59 06:59 Intake Total 240 Output Total 700 Balance -700 240 Weight 60.5 kg Intake: Oral 240 Output: Urine 700 Other: # Voids 2 - Exam Patient's mental status, speech and language functions are normal. Cranial nerves normal. Pupils are round and reacting. No Trace's syndrome. On muscle strength testing the strength is normal in left arm and both legs except right hip flexion is 5- (perhaps related to previous quadriceps tendon rupture). In the right upper extremity, deltoid 5-, biceps 4+, triceps 4-, brachioradialis 4+, wrist extension 4+, wrist flexion 1-2, finger extension 3+, finger flexion 0, interossei 0. Sensory touch is decreased from right elbow down to all the fingers of right hand. - Labs CBC & Chem 7: 12/30/19 22:51 12/30/19 22:51 Labs: Abnormal Lab Results - Last 24 Hours (Table) 01/02/20 Range/Units 05:37 Creatine Kinase 342 H (55-170) U/L Assessment and Plan Assessment: * Acute CVA ruled out. 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 * Hypertension * Chronic heavy tobacco use. * History of CVA right occipital lobe, with left homonymous hemianopia * Hyperlipidemia * Alcoholism. * Noncompliance with medications Plan: * MRI of the brain was negative for an acute stroke. There is some chronic small vessel ischemic change. Chronic right occipital lobe infarct. * Await MRI of the right brachial plexus with and without contrast for possible brachial plexopathy. Suggest treatment with prednisone 60 mg daily for 7 days, and then may decrease by 10 mg every 2 days until off. * We will check blood tests including serum protein electrophoresis, IgM, IgG, IgA, KARINA, Lyme titer, angiotensin I converting enzyme. ESR. The results can be followed up as an outpatient. * Carotid Doppler showed chronic right ICA occlusion, which has been present since 2012. No stenosis on the left side. * 2-D echo with bubble study revealed EF 55-60%. Mild concentric LVH. Normal left atrial size. Injection of agitated saline documented no ASD or PFO. * Hemoglobin A1c 5.4. * Continue aspirin 81 mg daily. Plavix only if indicated from a cardiac standpoint. * Watch for liver enzymes while being on statins. Elevated liver enzymes could be from alcoholism. * Strongly recommended tobacco cessation. * Suggest follow-up with a neurologist locally for EMG and nerve conduction velocity testing of right upper extremity.
[2020-01-03 11:59] LABS: Basophils % (A) 0 %; Eosinophils % (A) 0 %; HCT 40.6 % (39.0-53.0); HGB 12.5 gm/dL (13.0-17.5); Lymphocytes # (A) 0.8 k/uL (1.0-4.8); Lymphocytes % (A) 8 %; MCH 32.5 pg (25.0-35.0); MCHC 30.8 g/dL (31.0-37.0); Macrocytosis Moderate; Mean Platelet Volume 7.7; Monocytes # (A) 0.2 k/uL (0-1.0); Monocytes % (A) 2 %; Neutrophils # (A) 8.8 k/uL (1.3-7.7); Neutrophils % (A) 88 %; Platelet Count 145 k/uL (150-450); RBC 3.84 m/uL (4.30-5.90); RDW 13.2 % (11.5-15.5)
[2020-01-03] MEDS: ACETAMINOPHEN TAB 325 MG TAB PO PRN ×2 (12:07→20:11)
[2020-01-03 12:10] LABS: ALT 26 U/L (4-49); AST 33 U/L (17-59); African American GFR (CKD) >90 (>60 ml/min/1.73 sqM); Albumin 3.9 g/dL (3.5-5.0); Alkaline Phosphatase 68 U/L (38-126); Anion Gap 10 mmol/L; Blood Urea Nitrogen 12 mg/dL (9-20); Calcium 8.9 mg/dL (8.4-10.2); Carbon Dioxide 20 mmol/L (22-30); Chloride 106 mmol/L (98-107); Glucose 103 mg/dL (74-99); Non-African American GFR(CKD) >90 (>60 ml/min/1.73 sqM); Potassium 3.8 mmol/L (3.5-5.1); Sodium 136 mmol/L (137-145); Total Bilirubin 0.3 mg/dL (0.2-1.3); Total Protein 7.2 g/dL (6.3-8.2)
[2020-01-03 12:15] LABS: MCV 105.6 fL (80.0-100.0)
--- NOTE | 2020-01-03 12:55 | MR ---
MR brachial plexus with and without contrast HISTORY: Right arm numbness, weakness Multiplanar multisequence imaging obtained through the brachial plexus, postcontrast images following 6 cc Gadavist IV. Comparison chest CT 08/25/2019. There is motion on the exam. Arthropathy is present at the acromioclavicular joint. Degenerative disc changes and facet arthropathy noted in the visualized cervical spine. There is suggestion of spinal stenosis within the cervical spine at C5-6 level. Brachial plexus shows no evident mass. There is no abnormal enhancement following contrast administra tion. In the posterior aspect of the right upper lobe there is a pleural based density is noted on CT. IMPRESSION: Degenerative disc disease, cervical MRI may be of benefit. Motion limits the exam. Additi onal findings above.
--- NOTE | 2020-01-03 18:39 | P.PN ---
Subjective Progress Note Date: 01/03/20 Principal diagnosis: Right hand numbness Patient was seen and examined. Patient continues to report right arm numbness and clumsiness of his right hand. He has no other symptoms. Accepted to rehab, pending insurance authorization. Patient is getting frustrated. Patient denies any bladder or bowel incontinence. No saddle anesthesia. He denies any neck pain. Objective - Vital Signs Vital signs: Vital Signs Temp 98.0 F 01/03/20 16:00 Pulse 79 01/03/20 16:00 Resp 16 01/03/20 16:00 BP 131/81 01/03/20 16:00 Pulse Ox 96 01/03/20 16:00 Intake & Output 01/02/20 01/03/20 01/03/20 18:59 06:59 18:59 Intake Total 413 68 5510 Balance 044 62 9465 Weight 73.2 kg Intake: IV 10 10 Invasive Line 1 10 10 Oral 240 1680 Other: # Voids 2 2 # Bowel Movements 0 0 - Exam General: [non toxic], [no distress], [appears at stated age] Derm: [warm], [dry] Head: [atraumatic], [normocephalic], [symmetric], [Good range of motion of the neck] Eyes: [EOMI], [no lid lag], [anicteric sclera] Mouth: [no lip lesion], [mucus membranes moist] Cardiovascular: [S1S2 reg], [no murmur], [positive posterior tibial pulse bilateral], Lungs: [CTA bilateral], [no rhonchi, no rales] , [no accessory muscle use] Abdominal: [soft], [ nontender to palpation], [no guarding], [no appreciable organomegaly] Ext: [no gross muscle atrophy], [no edema], [no contractures], [Tinnel and Phalen negative right hand] Neuro: [decreased strength in the right hand with inability to grasp objects, sensation decreased to touch in all aspects of the right hand extending into the right elbow] Psych: [Alert], [oriented], [appropriate affect] - Labs CBC & Chem 7: 01/03/20 11:38 01/03/20 11:16 Labs: Abnormal Lab Results - Last 24 Hours (Table) 05/14/20 05/14/20 Range/Units 11:16 11:38 RBC 3.84 L (4.30-5.90) m/uL Hgb 12.5 L (13.0-17.5) gm/dL MCV 105.6 H D (80.0-100.0) fL MCHC 30.8 L (31.0-37.0) g/dL Plt Count 145 L (150-450) k/uL Neutrophils # 8.8 H (1.3-7.7) k/uL Lymphocytes # 0.8 L (1.0-4.8) k/uL Sodium 136 L (137-145) mmol/L Carbon Dioxide 20 L (22-30) mmol/L Creatinine 0.57 L (0.66-1.25) mg/dL Glucose 103 H (74-99) mg/dL Assessment and Plan Assessment: Right hand neuropathy -Stroke workup complete, negative for acute CVA -Patient would likely benefit from EMG and nerve conduction studies of the right upper extremity -PT and OT recommending QUE, PMR consulted, discussed with case management -MRI brachial plexus show possible spinal stenosis, orthopedic surgery consulted -Continue aspirin, Lipitor and Plavix -Follow neurology recommendations Elevated troponin with history of CAD -Troponins have been steady since previous admission -Also could be elevated due to rhabdomyolysis -Continue aspirin, Lipitor, Plavix and beta jose. -Follow cardiology in the outpatient setting. Alcohol abuse -CIWA protocol -Ativan as needed -Continue multivitamin, folic acid and thiamine Rhabdomyolysis -CPK downtrending -Encourage hydration by mouth [Stroke workup complete. Orthopedic surgery consulted for possible spinal stenosis. Pending insurance authorization for inpatient rehab. Likely DC in 1- 2 days.]
--- NOTE | 2020-01-03 19:08 | P.PN ---
Subjective Progress Note Date: 01/03/20 Patient states his right hand has further become weaker. He continues to have pain in the right arm from shoulder to the elbow with numbness in the right arm distally. Patient denies any neck pain whatsoever. Neck is supple. He does have history of right quadriceps tendon rupture in the past, which is the cause of his mild right hip flexion weakness. Patient also has history of right ulnar nerve transposition surgery years ago. MRI of the brain came negative for acute stroke. Objective - Vital Signs Vital signs: Vital Signs Temp 98.0 F 01/03/20 16:00 Pulse 79 01/03/20 16:00 Resp 16 01/03/20 16:00 BP 131/81 01/03/20 16:00 Pulse Ox 96 01/03/20 16:00 Intake & Output 01/02/20 01/03/20 01/03/20 18:59 06:59 18:59 Intake Total 068 25 5226 Balance 335 84 4601 Weight 73.2 kg Intake: IV 10 10 Invasive Line 1 10 10 Oral 240 1920 Other: # Voids 2 2 # Bowel Movements 0 0 - Exam Patient's mental status, speech and language functions are normal. Cranial nerves normal. Pupils are round and reacting. No Trace's syndrome. On muscle strength testing the strength is normal in left arm and both legs except right hip flexion is 5- (perhaps related to previous quadriceps tendon rupture). In the right upper extremity, deltoid 5-, biceps 4, triceps 4-, wrist extension 4, wrist flexion 1-2, finger flexion and parks and recreation worker 1-2, interossei 0. Sensory touch is decreased from right elbow down to all the fingers of right hand. Reflexes are (right/left) biceps 0/trace, brachioradialis 0/0, knees 1+/1+, ankles 0/0, plantar up on the right, down on the left. Tone is decreased in the right hand. - Labs CBC & Chem 7: 01/03/20 11:38 01/03/20 11:16 Labs: Abnormal Lab Results - Last 24 Hours (Table) 01/03/20 01/03/20 Range/Units 11:16 11:38 RBC 3.84 L (4.30-5.90) m/uL Hgb 12.5 L (13.0-17.5) gm/dL MCV 105.6 H D (80.0-100.0) fL MCHC 30.8 L (31.0-37.0) g/dL Plt Count 145 L (150-450) k/uL Neutrophils # 8.8 H (1.3-7.7) k/uL Lymphocytes # 0.8 L (1.0-4.8) k/uL Sodium 136 L (137-145) mmol/L Carbon Dioxide 20 L (22-30) mmol/L Creatinine 0.57 L (0.66-1.25) mg/dL Glucose 103 H (74-99) mg/dL Assessment and Plan Assessment: * Probable right brachial plexopathy versus radiculopathy. Acute CVA ruled out. * Hypertension * Chronic heavy tobacco use. * History of CVA right occipital lobe, with left homonymous hemianopia * Hyperlipidemia * Alcoholism. * Noncompliance with medications Plan: * MRI of the brain was negative for an acute stroke. There is some chronic small vessel ischemic change. Chronic right occipital lobe infarct. * MRI of the brachial plexus shows no mass compressing the plexus. No abnormal enhancement of the brachial plexus. There is suggestion of spinal stenosis at C5 6 level. We will check MRI of the cervical spine. Also orthopedic spine consultation. Discussed with primary physician. * Continue treatment with prednisone 60 mg daily for 7 days, and then may decrease by 10 mg every 2 days until off. * We will check blood tests including serum protein electrophoresis, IgM, IgG, IgA, KARINA, Lyme titer, angiotensin I converting enzyme. ESR. The results can be followed up as an outpatient. * Carotid Doppler showed chronic right ICA occlusion, which has been present since 2012. No stenosis on the left side. * 2-D echo with bubble study revealed EF 55-60%. Mild concentric LVH. Normal left atrial size. Injection of agitated saline documented no ASD or PFO. * Hemoglobin A1c 5.4. We will check further blood testing including Lyme titer, CHANEL level, KARINA, protein electrophoresis, immunoglobulin's, B12, folate. * Continue aspirin 81 mg daily. Plavix only if indicated from a cardiac standpoint. * Liver enzymes back to normal. * Strongly recommended tobacco cessation. * Patient will need outpatient EMG and nerve conduction velocity testing of right upper extremity.
[2020-01-03 20:16] LABS: Protein, Total 5.6 g/dL (6.2-8.2)
[2020-01-04] MEDS: IBUPROFEN 400 MG TAB PO PRN ×2 (02:37→08:20)
[2020-01-04] MEDS: ACETAMINOPHEN TAB 325 MG TAB PO PRN ×3 (02:38→14:04)
[2020-01-04 03:18] VITALS: RESP 20
[2020-01-04] MEDS: THIAMINE 100 MG TAB PO SCH ×2 (06:10→08:21)
[2020-01-04] MEDS: predniSONE 20 MG TAB PO SCH (08:19)
[2020-01-04] MEDS: ASPIRIN 81 MG PO SCH (08:19)
[2020-01-04] MEDS: MULTIVITAMINS, THERA 1 EACH TAB PO SCH (08:20)
[2020-01-04] MEDS: METOPROLOL TARTRATE 25 MG TAB PO SCH (08:20)
[2020-01-04] MEDS: CLOPIDOGREL 75 MG TAB PO SCH (08:21)
[2020-01-04] MEDS: LISINOPRIL 10 MG TAB PO SCH (08:21)
[2020-01-04] MEDS: FOLIC ACID 1 MG TAB PO SCH (08:21)
[2020-01-04] MEDS: ATORVASTATIN 80 MG TAB PO SCH (08:21)
[2020-01-04 08:24] VITALS: BP 134/87; PULSE 74; TEMP 97.6
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
[2020-01-04 11:39] LABS: Immunoglobulin M 68.2 mg/dL (40.0-280.0)
--- NOTE | 2020-01-04 12:04 | MR ---
EXAMINATION TYPE: MR cervical spine wo con DATE OF EXAM: 01/04/2020 COMPARISON: Pain HISTORY: Rt arm numbness, weakness. Stenosis TECHNIQUE: Multiplanar, multisequence images of the cervical spine were acquired. C2-C3: Degenerative disc disease and central disc bulging with hypertrophy of the uncovertebral joint s and facets moderate left foraminal encroachment. No Canal stenosis. C3-C4: Degenerative disc disease there is broad-based central disc protrusion abutting the anterior m argin of the spinal cord. Facet arthropathy and uncovertebral joint hypertrophy result in moderate bi lateral foraminal encroachment. Heterogeneous marrow signal of the transverse processes and facet gre ater on the left. C4-C5: Degenerative disc disease. There is facet arthropathy and uncovertebral joint hypertrophy with central disc protrusion. There is mild canal stenosis. Transverse process of the facets have hetero geneous signal which is nonspecific. However, recommend post contrast exam. C5-C6: Broad-based central and right paracentral disc herniation with severe compression of thecal sa c and spinal cord compression. There is bilateral uncovertebral joint hypertrophy and facet arthropat hy. Severe canal stenosis. C6-C7: And disc bulging with uncovertebral joint hypertrophy and right-sided foraminal encroachment. No Canal stenosis. C7-T1: No evidence for degenerative disc disease. No disc bulge/herniation or protrusion. No Canal stenosis. Foramina are patent bilaterally. Cervical segments are intact. There is normal alignment. Cervical spinal cord is of normal signal. Craniovertebral junction relationships are within normal limits. IMPRESSION: 1. Multilevel degenerative disc disease and disc bulging or herniations as discussed above. Most naif ed findings C5-C6 with broad-based central and right paracentral disc herniation resulting in severe canal stenosis and spinal cord compression with bilateral foraminal encroachment. 2. Disc protrusion C3-C4 but the anterior margin the spinal cord without displacement. 3. Heterogeneous marrow signal seen involving the facet joint in transverse processes extending from level C3-C5. This could be artifact or technical. However, recommend post contrast sequencing to excl ude marrow edema or infectious etiology. Report called to the patient's nurse. 4. Multilevel foraminal encroachment with moderate left-sided foraminal encroachment C2-C3, bilateral moderate foraminal encroachment C3-C4, bilateral moderate encroachment C4-C5, and moderate to severe bilateral foraminal encroachment C5-C6.
[2020-01-04 12:40] LABS: Folate, Serum 16.6 ng/mL
--- NOTE | 2020-01-04 14:47 | P.PN ---
Subjective Progress Note Date: 01/04/20 Patient states his right hand continues to be very weak. Whole right upper extremity is weak. Not complaining of pain as much. Patient denies any neck pain whatsoever. Neck is supple. He does have history of right quadriceps tendon rupture in the past, which is the cause of his mild right hip flexion weakness. Patient also has history of right ulnar nerve transposition surgery years ago. MRI of the brain came negative for acute stroke. Objective - Vital Signs Vital signs: Vital Signs Temp 97.6 F 01/04/20 08:00 Pulse 74 01/04/20 08:00 Resp 20 01/04/20 08:00 BP 134/87 01/04/20 08:00 Pulse Ox 98 01/04/20 08:00 Intake & Output 01/03/20 01/04/20 01/04/20 18:59 06:59 18:59 Intake Total 1929 240 358 Balance 1929 240 358 Weight 72.5 kg Intake: IV 10 Invasive Line 1 10 Oral 1919 240 358 Other: # Voids 2 # Bowel Movements 0 - Exam Patient's mental status, speech and language functions are normal. Cranial nerves normal. Pupils are round and reacting. No Trace's syndrome. On muscle strength testing the strength is normal in left arm and both legs except right hip flexion is 5- (perhaps related to previous quadriceps tendon rupture). In the right upper extremity, deltoid 5-, biceps 4, triceps 4-, wrist extension 4, wrist flexion 1-2, finger flexion and line service supervisor 1-2, interossei 0. Sensory touch is decreased from right elbow down to all the fingers of right hand. Reflexes are (right/left) biceps 0/trace, brachioradialis 0/0, knees 1+/1+, ankles 0/0, plantar up on the right, down on the left. Tone is decreased in the right hand. - Labs CBC & Chem 7: 01/03/20 11:38 01/03/20 11:16 Labs: Abnormal Lab Results - Last 24 Hours (Table) 01/02/20 Range/Units 05:37 Total Protein (PEP) 5.6 L (6.2-8.2) g/dL IgA 351.0 H (60.0-350.0) mg/dL Assessment and Plan Assessment: * Probable right brachial plexopathy versus radiculopathy. Acute CVA ruled out. * Cervical spinal stenosis moderate to severe degree at C5-6 with mild cord compression. * Hypertension * Chronic heavy tobacco use. * History of CVA right occipital lobe, with left homonymous hemianopia * Hyperlipidemia * Alcoholism. * Noncompliance with medications Plan: * MRI of the cervical spine showed multilevel degenerative disc disease and disc bulging or herniations. Most marked finding C5 6 with broad-based central and right paracentral disc herniation resulting in severe canal stenosis and spinal cord compression with bilateral foraminal encroachment. Disc protr usion C3 4. Heterogenous marrow signal seen involving the facet joint in transfers process extending from the level of C3 to C5. This could be artifactual or technical. However recommend post contrast sequencing to exclude marrow edema or infectious etiology. Await orthopedic spine consultation. ESR is normal 13. * MRI of the brain was negative for an acute stroke. There is some chronic small vessel ischemic change. Chronic right occipital lobe infarct. * MRI of the brachial plexus shows no mass compressing the plexus. No abnormal enhancement of the brachial plexus. * Continue treatment with prednisone 60 mg daily for 7 days, and then may decrease by 10 mg every 2 days until off. * Carotid Doppler showed chronic right ICA occlusion, which has been present since 2013. No stenosis on the left side. * 2-D echo with bubble study revealed EF 55-60%. Mild concentric LVH. Normal left atrial size. Injection of agitated saline documented no ASD or PFO. * Hemoglobin A1c 5.4. ESR 13, B12 350, folate 16.6, KARINA negative, angiotensin converting enzyme normal. Serum protein electrophoresis, Lyme titers pending. * Continue aspirin 81 mg daily. Plavix only if indicated from a cardiac standpoint. * Strongly recommended tobacco cessation. * Patient will need outpatient EMG and nerve conduction velocity testing of right upper extremity. * Possible transfer to inpatient rehab, if cleared by orthopedic spine.
[2020-01-04 15:02] LABS: Albumin 3.08 g/dL (3.80-4.90); Gamma Globulin 1.04 g/dL (0.70-1.50)
== END 2020-01-04 15:54 | DRG 74 ==
LOC: EC 22:21 → 3SCARD 12-31 01:22
PROVIDERS: ADMIT Internal Medicine; ATTEND Internal Medicine
DX: G56.81 Other specified mononeuropathies of right upper limb (principal); M62.82 Rhabdomyolysis; H53.462 Homonymous bilateral field defects, left side; E78.5 Hyperlipidemia, unspecified; F10.10 Alcohol abuse, uncomplicated; F17.210 Nicotine dependence, cigarettes, uncomplicated; F32.9 Major depressive disorder, single episode, unspecified; F41.9 Anxiety disorder, unspecified; I10 Essential (primary) hypertension; I69.998 Other sequelae following unspecified cerebrovascular disease; Z11.59 Encounter for screening for other viral diseases; I25.10 Atherosclerotic heart disease of native coronary artery without angina pectoris; I25.2 Old myocardial infarction; I65.21 Occlusion and stenosis of right carotid artery; I73.9 Peripheral vascular disease, unspecified; J44.9 Chronic obstructive pulmonary disease, unspecified; M13.0 Polyarthritis, unspecified; M48.02 Spinal stenosis, cervical region; K21.9 Gastro-esophageal reflux disease without esophagitis; S76.111A Strain of right quadriceps muscle, fascia and tendon, initial encounter; R26.9 Unspecified abnormalities of gait and mobility; R74.8 Abnormal levels of other serum enzymes; R79.89 Other specified abnormal findings of blood chemistry; Z91.14 Patient's other noncompliance with medication regimen; Z79.02 Long term (current) use of antithrombotics/antiplatelets; Z79.82 Long term (current) use of aspirin; Z79.899 Other long term (current) drug therapy; Z88.0 Allergy status to penicillin; Z95.5 Presence of coronary angioplasty implant and graft; Z87.11 Personal history of peptic ulcer disease; Z96.641 Presence of right artificial hip joint; Z87.01 Personal history of pneumonia (recurrent); Z86.14 Personal history of Methicillin resistant Staphylococcus aureus infection; Z82.49 Family history of ischemic heart disease and other diseases of the circulatory system; Z82.5 Family history of asthma and other chronic lower respiratory diseases; Z81.1 Family history of alcohol abuse and dependence
CPT/HCPCS: 36415; 70450; 70551; 71045; 71552; 72141; 80053; 80061; 82164; 82550; 82553; 82607; 82746; 82784; 83036; 84165; 84484; 85025; 85610; 85652; 85730; 86038; 86618; 87635; 93005; 93306; 93880; 96361; 96365; 96376; 99285

== ENCOUNTER 2020-03-06 10:51 | Inpatient (IN) | payer OTHER ==
[2020-03-06] MEDS ORDERED: SODIUM CHLORIDE 0.9% 1,000 ML IV ONE ×5 (11:02→17:06)
--- NOTE | 2020-03-06 11:07 | ED ---
General Adult HPI - General Stated complaint: altered Time Seen by Provider: 03/06/20 10:51 Source: patient, RN notes reviewed, old records reviewed - History of Present Illness Initial comments: This is a 59-year-old male who presents emergency Department for altered mental status. Patient lives in a shed behind the house. He wanted the house cannot check on him and he wasn't responding. EMS states they got there he was very obtunded they did give him Narcan and he did perk him up enough to be alert but not oriented at all. Patient will not speak. Patient is a known alcoholic and had a bottle of hydrocodone 10s and there was 120 in the bottle and they were all gone. No other history is available at this time. - Related Data Home Medications Medication Instructions Recorded Confirmed HYDROcodone/APAP 10-325MG [[place] 1 tab PO Q6HR 03/06/20 03/06/20 10-325] prednisoLONE ACETATE [Pred Forte 1 drop INTRAOCULA BID 03/06/20 03/06/20 1%] Allergies Allergy/AdvReac Type Severity Reaction Status Date / Time Penicillins AdvReac Nausea & Verified 03/06/20 12:34 Vomiting & Diarrhea Review of Systems ROS Statement: Those systems with pertinent positive or pertinent negative responses have been documented in the HPI. ROS Other: All systems not noted in ROS Statement are negative. Past Medical History Past Medical History: Asthma, Coronary Artery Disease (CAD), Chest Pain / Angina, COPD, CVA/TIA, GERD/Reflux, Hyperlipidemia, Hypertension, Myocardial Infarction (NE), Osteoarthritis (OA), Pneumonia Additional Past Medical History / Comment(s): Hx of 4 NE's last one being on 07/2015, CVA with tunnel vision bilaterally, PUD, precancerous esophageal polyps removed, esophagial ulceration, generalized arthritis, sinus problems, past r hip fracture with surgery, past L lower leg fracture/casted, past R arm fracture/casted, bilateral clavicles fractrued, circumcism. Last Myocardial Infarction Date:: 07/2015 History of Any Multi-Drug Resistant Organisms: MRSA Date of last positivie culture/infection: 2003 MDRO Source:: chin Past Surgical History: Heart Catheterization, Heart Catheterization With Stent, Hernia Repair, Orthopedic Surgery Additional Past Surgical History / Comment(s): Multiple angioplasties/stents, bilateral inguinal hernia repairs, R hip hemiarthroplasty, left elbow ulnar nerve sx, left shoulder rotator cuff repair, EGD with precancerous polypectomy/ulerated esophagus, colonoscopy, bronchoscopy Past Anesthesia/Blood Transfusion Reactions: No Reported Reaction Date of Last Stent Placement:: 07/2015 Past Psychological History: Anxiety, Depression Past Alcohol Use History: Heavy Past Drug Use History: None Reported - Past Family History Mother Family Medical History: COPD, Coronary Artery Disease (CAD), Deep Vein Thrombosis (DVT), Hypertension Additional Family Medical History / Comment(s): Back surgery and a Hx of alcohol abuse. Mother is age 76 years. Further hx unknown. Father Family Medical History: Congestive Heart Failure (CHF) Additional Family Medical History / Comment(s): Father at age 53. Hx ETOH abuse. Further HX unknown. General Exam - General Exam Comments Initial Comments: GENERAL: Patient is well-developed and well-nourished. Patient is nontoxic and well- hydrated and is in no acute distress. Patient is just staring straight ahead he will look at you when you call his name but he does not respond. ENT: Neck is soft and supple. No significant lymphadenopathy is noted. Oropharynx is clear. Moist mucous membranes. EYES: The sclera were anicteric and conjunctiva were pink and moist. Extraocular movements were intact and pupils were equal round and reactive to light. Eyelids were unremarkable. PULMONARY: Unlabored respirations. Good breath sounds bilaterally. No audible rales rhonchi or wheezing was noted. CARDIOVASCULAR: There is a regular rate and rhythm without any murmurs gallops or rubs. ABDOMEN: Soft and nontender with normal bowel sounds. SKIN: Skin is clear with no lesions or rashes and otherwise unremarkable. NEUROLOGIC: Patient is alert and oriented 0. Cranial nerves II through XII are grossly intact. Patient is not speaking and I'm unable to get all 4 extremities to move because he is not following commands. MUSCULOSKELETAL: No lower extremity swelling or edema. No calf tenderness. LYMPHATICS: No significant lymphadenopathy is noted PSYCHIATRIC: Unable to assess Course Vital Signs 03/06/20 03/06/20 03/06/20 11:04 11:14 11:21 Temperature 99.1 F Pulse Rate 138 H 137 H Pulse Rate [ 138 H [employer] ] Respiratory 34 H 18 Rate Blood Pressure 139/106 141/109 Blood Pressure [Right Arm] O2 Sat by Pulse 96 92 L Oximetry 03/06/20 03/06/20 03/06/20 12:00 12:15 12:29 Temperature Pulse Rate 137 H 137 H Pulse Rate [ [employer]st ] Respiratory 22 22 Rate Blood Pressure 152/105 128/107 Blood Pressure 147/112 [Right Arm] O2 Sat by Pulse Oximetry 03/06/20 12:58 Temperature Pulse Rate 138 H Pulse Rate [ [employer]st ] Respiratory 22 Rate Blood Pressure 151/103 Blood Pressure [Right Arm] O2 Sat by Pulse 97 Oximetry Medical Decision Making - Medical Decision Making EKG shows sinus tachycardia 130 bpm UT interval 232 QRS is a 68 QT interval 308 QTC is 453. Patient's EKG shows no ST segment elevation or depression. Chest x-ray shows no acute abnormality. CT brain shows no acute abnormality. Patient's ammonia level is elevated so I started the patient on lactulose. I spoke to Dr. Campuzano he agreed to admit the patient admitted the patient remaining orders - Lab Data Result diagrams: 03/06/20 11:13 03/06/20 11:13 Lab Results 03/06/20 03/06/20 03/06/20 Range/Units 11:09 11:13 11:13 WBC 18.5 H (3.8-10.6) k/uL RBC 5.09 (4.30-5.90) m/uL Hgb 17.1 D (13.0-17.5) gm/dL Hct 52.0 (39.0-53.0) % MCV 102.1 H (80.0-100.0) fL MCH 33.5 (25.0-35.0) pg MCHC 32.8 (31.0-37.0) g/dL RDW 14.5 (11.5-15.5) % Plt Count 296 D (150-450) k/uL Neutrophils % 88 % Lymphocytes % 7 % Monocytes % 4 % Eosinophils % 1 % Basophils % 0 % Neutrophils # 16.2 H (1.3-7.7) k/uL Lymphocytes # 1.3 (1.0-4.8) k/uL Monocytes # 0.7 (0-1.0) k/uL Eosinophils # 0.2 (0-0.7) k/uL Basophils # 0.0 (0-0.2) k/uL Macrocytosis Slight PT 17.2 H (9.0-12.0) sec INR 1.8 H (<1.2) APTT 27.6 (22.0-30.0) sec VBG pH (7.31-7.41) VBG pCO2 (37-51) mmHg VBG HCO3 (24-28) mmol/L Sodium (137-145) mmol/L Potassium (3.5-5.1) mmol/L Chloride (98-107) mmol/L Carbon Dioxide (22-30) mmol/L Anion Gap mmol/L BUN (9-20) mg/dL Creatinine (0.66-1.25) mg/dL Est GFR (CKD-EPI)AfAm (>60 ml/min/1.73 sqM) Est GFR (CKD-EPI)NonAf (>60 ml/min/1.73 sqM) Glucose (74-99) mg/dL POC Glucose (mg/dL) 115 H (75-99) mg/dL POC Glu Tool[employer] ID Shantell Crawford Calcium (8.4-10.2) mg/dL Magnesium (1.6-2.3) mg/dL Total Bilirubin (0.2-1.3) mg/dL AST (17-59) U/L ALT (4-49) U/L Alkaline Phosphatase (38-126) U/L Ammonia (<30) umol/L Troponin I (0.000-0.034) ng/mL Total Protein (6.3-8.2) g/dL Albumin (3.5-5.0) g/dL Urine Color Urine Appearance (Clear) Urine pH (5.0-8.0) Ur Specific [place] (1.001-1.035) Urine Protein (Negative) Urine Glucose (UA) (Negative) Urine Ketones (Negative) Urine Blood (Negative) Urine Nitrite (Negative) Urine Bilirubin (Negative) Urine Urobilinogen (<2.0) mg/dL Ur Leukocyte Esterase (Negative) Urine RBC (0-5) /hpf Urine WBC (0-5) /hpf Ur Squamous Epith Cells (0-4) /hpf Urine Bacteria (None) /hpf Hyaline Casts (0-2) /lpf Urine Mucus (None) /hpf Salicylates mg/dL Urine Opiates Screen (NotDetected) Ur Oxycodone Screen (NotDetected) Urine Methadone Screen (NotDetected) Ur Propoxyphene Screen (NotDetected) Acetaminophen ug/mL Ur Barbiturates Screen (NotDetected) U Tricyclic Antidepress (NotDetected) Ur Phencyclidine Scrn (NotDetected) Ur Amphetamines Screen (NotDetected) U Methamphetamines Scrn (NotDetected) U Benzodiazepines Scrn (NotDetected) Urine Cocaine Screen (NotDetected) U Marijuana (THC) Screen (NotDetected) Serum Alcohol mg/dL 03/06/20 03/06/20 03/06/20 Range/Units 11:13 11:13 11:13 WBC (3.8-10.6) k/uL RBC (4.30-5.90) m/uL Hgb (13.0-17.5) gm/dL Hct (39.0-53.0) % MCV (80.0-100.0) fL MCH (25.0-35.0) pg MCHC (31.0-37.0) g/dL RDW (11.5-15.5) % Plt Count (150-450) k/uL Neutrophils % % Lymphocytes % % Monocytes % % Eosinophils % % Basophils % % Neutrophils # (1.3-7.7) k/uL Lymphocytes # (1.0-4.8) k/uL Monocytes # (0-1.0) k/uL Eosinophils # (0-0.7) k/uL Basophils # (0-0.2) k/uL Macrocytosis PT (9.0-12.0) sec INR (<1.2) APTT (22.0-30.0) sec VBG pH (7.31-7.41) VBG pCO2 (37-51) mmHg VBG HCO3 (24-28) mmol/L Sodium 137 (137-145) mmol/L Potassium 5.3 H (3.5-5.1) mmol/L Chloride 103 (98-107) mmol/L Carbon Dioxide 17 L (22-30) mmol/L Anion Gap 17 mmol/L BUN 33 H (9-20) mg/dL Creatinine 1.26 H (0.66-1.25) mg/dL Est GFR (CKD-EPI)AfAm 71 (>60 ml/min/1.73 sqM) Est GFR (CKD-EPI)NonAf 62 (>60 ml/min/1.73 sqM) Glucose 121 H (74-99) mg/dL POC Glucose (mg/dL) (75-99) mg/dL POC Glu Tool/[employer] ID Calcium 10.4 H (8.4-10.2) mg/dL Magnesium 2.2 (1.6-2.3) mg/dL Total Bilirubin 2.0 H (0.2-1.3) mg/dL AST 2087 H (17-59) U/L ALT 1312 H (4-49) U/L Alkaline Phosphatase 96 (38-126) U/L Ammonia 60 H (<30) umol/L Troponin I 0.326 H* (0.000-0.034) ng/mL Total Protein 8.8 H (6.3-8.2) g/dL Albumin 5.0 (3.5-5.0) g/dL Urine Color Urine Appearance (Clear) Urine pH (5.0-8.0) Ur Specific [place] (1.001-1.035) Urine Protein (Negative) Urine Glucose (UA) (Negative) Urine Ketones (Negative) Urine Blood (Negative) Urine Nitrite (Negative) Urine Bilirubin (Negative) Urine Urobilinogen (<2.0) mg/dL Ur Leukocyte Esterase (Negative) Urine RBC (0-5) /hpf Urine WBC (0-5) /hpf Ur Squamous Epith Cells (0-4) /hpf Urine Bacteria (None) /hpf Hyaline Casts (0-2) /lpf Urine Mucus (None) /hpf Salicylates 3.3 mg/dL Urine Opiates Screen (NotDetected) Ur Oxycodone Screen (NotDetected) Urine Methadone Screen (NotDetected) Ur Propoxyphene Screen (NotDetected) Acetaminophen <10.0 ug/mL Ur Barbiturates Screen (NotDetected) U Tricyclic Antidepress (NotDetected) Ur Phencyclidine Scrn (NotDetected) Ur Amphetamines Screen (NotDetected) U Methamphetamines Scrn (NotDetected) U Benzodiazepines Scrn (NotDetected) Urine Cocaine Screen (NotDetected) U Marijuana (THC) Screen (NotDetected) Serum Alcohol <10 mg/dL 07/16/20 07/16/20 Range/Units 11:13 11:20 WBC (3.8-10.6) k/uL RBC (4.30-5.90) m/uL Hgb (13.0-17.5) gm/dL Hct (39.0-53.0) % MCV (80.0-100.0) fL MCH (25.0-35.0) pg MCHC (31.0-37.0) g/dL RDW (11.5-15.5) % Plt Count (150-450) k/uL Neutrophils % % Lymphocytes % % Monocytes % % Eosinophils % % Basophils % % Neutrophils # (1.3-7.7) k/uL Lymphocytes # (1.0-4.8) k/uL Monocytes # (0-1.0) k/uL Eosinophils # (0-0.7) k/uL Basophils # (0-0.2) k/uL Macrocytosis PT (9.0-12.0) sec INR (<1.2) APTT (22.0-30.0) sec VBG pH 7.33 (7.31-7.41) VBG pCO2 41 (37-51) mmHg VBG HCO3 21 L (24-28) mmol/L Sodium (137-145) mmol/L Potassium (3.5-5.1) mmol/L Chloride (98-107) mmol/L Carbon Dioxide (22-30) mmol/L Anion Gap mmol/L BUN (9-20) mg/dL Creatinine (0.66-1.25) mg/dL Est GFR (CKD-EPI)AfAm (>60 ml/min/1.73 sqM) Est GFR (CKD-EPI)NonAf (>60 ml/min/1.73 sqM) Glucose (74-99) mg/dL POC Glucose (mg/dL) (75-99) mg/dL POC Glu Tool/[employer] ID Calcium (8.4-10.2) mg/dL Magnesium (1.6-2.3) mg/dL Total Bilirubin (0.2-1.3) mg/dL AST (17-59) U/L ALT (4-49) U/L Alkaline Phosphatase (38-126) U/L Ammonia (<30) umol/L Troponin I (0.000-0.034) ng/mL Total Protein (6.3-8.2) g/dL Albumin (3.5-5.0) g/dL Urine Color Yellow Urine Appearance Cloudy (Clear) Urine pH 5.5 (5.0-8.0) Ur Specific [place] 1.024 (1.001-1.035) Urine Protein 1+ H (Negative) Urine Glucose (UA) Negative (Negative) Urine Ketones Trace H (Negative) Urine Blood Moderate H (Negative) Urine Nitrite Negative (Negative) Urine Bilirubin 1+ H (Negative) Urine Urobilinogen 4.0 (<2.0) mg/dL Ur Leukocyte Esterase Negative (Negative) Urine RBC 3 (0-5) /hpf Urine WBC 16 H (0-5) /hpf Ur Squamous Epith Cells 1 (0-4) /hpf Urine Bacteria Rare H (None) /hpf Hyaline Casts 114 H (0-2) /lpf Urine Mucus Moderate H (None) /hpf Salicylates mg/dL Urine Opiates Screen Detected H (NotDetected) Ur Oxycodone Screen Not Detected (NotDetected) Urine Methadone Screen Not Detected (NotDetected) Ur Propoxyphene Screen Not Detected (NotDetected) Acetaminophen ug/mL Ur Barbiturates Screen Not Detected (NotDetected) U Tricyclic Antidepress Not Detected (NotDetected) Ur Phencyclidine Scrn Not Detected (NotDetected) Ur Amphetamines Screen Not Detected (NotDetected) U Methamphetamines Scrn Not Detected (NotDetected) U Benzodiazepines Scrn Not Detected (NotDetected) Urine Cocaine Screen Not Detected (NotDetected) U Marijuana (THC) Screen Not Detected (NotDetected) Serum Alcohol mg/dL Critical Care Time Critical Care Time: Yes Total Critical Care Time: 35 Disposition Clinical Impression: Hepatic encephalopathy, Renal insufficiency, Altered mental status, Leukocytosis, Hepatitis, History of alcoholism, Opiate abuse, continuous Disposition: ADMITTED IP TO THIS [facility] Is patient prescribed a controlled substance at d/c from ED?: No Referrals: None,Stated [Primary Care Provider] - 1-2 days Time of Disposition: 13:23
[2020-03-06 11:11] LABS: Glucose,Whole Blood 115 mg/dL (75-99)
[2020-03-06 11:36] LABS: VBG PH 7.33 (7.31-7.41)
[2020-03-06 11:42] LABS: Basophils % (A) 0 %; Eosinophils # (A) 0.2 k/uL (0-0.7); Eosinophils % (A) 1 %; Lymphocytes # (A) 1.3 k/uL (1.0-4.8); Lymphocytes % (A) 7 %; MCH 33.5 pg (25.0-35.0); MCHC 32.8 g/dL (31.0-37.0); MCV 102.1 fL (80.0-100.0); Macrocytosis Slight; Mean Platelet Volume 8.1; Monocytes # (A) 0.7 k/uL (0-1.0); Monocytes % (A) 4 %; Neutrophils # (A) 16.2 k/uL (1.3-7.7); Neutrophils % (A) 88 %; RBC 5.09 m/uL (4.30-5.90); RDW 14.5 % (11.5-15.5); WBC 18.5 k/uL (3.8-10.6)
[2020-03-06 11:46] LABS: HGB 17.1 gm/dL (13.0-17.5); Platelet Count 296 k/uL (150-450)
[2020-03-06 11:48] LABS: Acetaminophen <10.0 ug/mL; African American GFR (CKD) 71 (>60 ml/min/1.73 sqM); Alcohol <10 mg/dL; Anion Gap 17 mmol/L; Blood Urea Nitrogen 33 mg/dL (9-20); Calcium 10.4 mg/dL (8.4-10.2); Carbon Dioxide 17 mmol/L (22-30); Chloride 103 mmol/L (98-107); Glucose 121 mg/dL (74-99); Non-African American GFR(CKD) 62 (>60 ml/min/1.73 sqM); Salicylate 3.3 mg/dL; Sodium 137 mmol/L (137-145); Total Protein 8.8 g/dL (6.3-8.2)
--- NOTE | 2020-03-06 11:55 | CT ---
EXAMINATION TYPE: CT brain wo con DATE OF EXAM: 03/06/2020 COMPARISON: 12/30/2019 HISTORY: 59-year-old male confusion, Altered mental status TECHNIQUE: Examination was done in axial plane without intravenous contrast. Coronal and sagittal r econstructions performed. CT DLP: 2164.4 mGycm Automated exposure control for dose reduction was used. FINDINGS: There is no evidence of acute intracranial hemorrhage, acute ischemic changes, mass, mass-effect, or extra-axial fluid collection. There is no effacement of cerebral sulci or basal subarachnoid cister ns. There is no midline shift. A[place]-white matter distinction is preserved. Encephalomalacia right occipital lobe related to prior infarct, unchanged from prior. Old lacunar infarct anterior right basal ganglia and subinsular white matter hypodensity on the left in keeping with chronic small vessel ischemic disease. Mild ventriculomegaly likely secondary to central cerebral atrophy. Mild to moderate cerebral cortical volume loss. Rightward nasal septal deviation. Paranasal sinuses and mastoid air cells are well pneumatized. Orbit s and globes appear intact. IMPRESSION: 1. Encephalomalacia relating to an old right occipital lobe infarct. 2. Moderate generalized atrophy. 3. Stable old lacunar infarct anterior right basal ganglia and some chronic ischemic subinsular white matter changes on the left. 3. No acute intracranial abnormality seen.
[2020-03-06 11:56] LABS: ALT 1312 U/L (4-49); Alkaline Phosphatase 96 U/L (38-126); Magnesium 2.2 mg/dL (1.6-2.3); Potassium 5.3 mmol/L (3.5-5.1)
[2020-03-06 11:59] LABS: Amphetamine Screen,Urine Not Detected (NotDetected); Barbiturate Screen,Urine Not Detected (NotDetected); Benzodiazepines Screen,Urine Not Detected (NotDetected); Cocaine Screen,Urine Not Detected (NotDetected); Methadone Screen, Urine Not Detected (NotDetected); Opiate Screen,Urine Detected (NotDetected); Oxycodone Screen, Urine Not Detected (NotDetected); Phencyclidine Screen,Urine Not Detected (NotDetected); Tricyclic Antidepressant,Urine Not Detected (NotDetected); Urn Cannabinoid Scrn Not Detected (NotDetected)
--- NOTE | 2020-03-06 12:06 | XR ---
EXAMINATION TYPE: XR chest 2V DATE OF EXAM: 03/06/2020 COMPARISON: Prior chest x-ray 12/30/2019 HISTORY: Altered mental status TECHNIQUE: Frontal and lateral views of the chest are obtained. FINDINGS: There is no focal air space opacity, pleural effusion, or pneumothorax seen. The cardiac silhouette size is within normal limits. The aorta is dense. The osseous structures are intact. IMPRESSION: No acute cardiopulmonary process.
[2020-03-06 12:08] LABS: AST 2087 U/L (17-59)
[2020-03-06 12:08] LABS: Appearance,Urine Cloudy (Clear); Bacteria,Urine Rare /hpf; Bilirubin,Urine 1+ (Negative); Blood,Urine Moderate (Negative); Color,Urine Yellow; Glucose,Urine (UA) Negative (Negative); Hyaline Casts,Urine 114 /lpf (0-2); Ketones,Urine Trace (Negative); Leukocyte Esterase,Urine Negative (Negative); Mucus,Urine Moderate /hpf; Nitrite,Urine Negative (Negative); PH, Urine 5.5 (5.0-8.0); Protein,Urine 1+ (Negative); RBC,Urine 3 /hpf (0-5); Specific Gravity,Urine 1.024 (1.001-1.035); Squamous Epithelial Cell,Urine 1 /hpf (0-4); WBC,Urine 16 /hpf (0-5)
[2020-03-06 12:10] LABS: INR 1.8 (<1.2); Partial Thromboplastin Time 27.6 sec (22.0-30.0); Prothrombin Time 17.2 sec (9.0-12.0)
[2020-03-06] MEDS ORDERED: hydrALAZINE HCL 20 MG/ML 1 ML VIAL IVP STA (12:38)
[2020-03-06] MEDS ORDERED: cefTRIAXone IN SWFI 1,000 MG/10 ML SYRINGE IVP STA (13:13)
[2020-03-06] MEDS ORDERED: LORazepam 2 MG/ML INJ IV STA (13:26)
[2020-03-06] MEDS ORDERED: THIAMINE 100 MG/ML 2 ML VIAL IM STA (15:17)
[2020-03-06] MEDS ORDERED: LORazepam 2 MG/ML INJ IV PRN ×3 (15:17)
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
[2020-03-06] MEDS: METOPROLOL SUCCINATE (ER) 25 MG TAB.ER.24H PO SCH (15:47)
[2020-03-06] MEDS ORDERED: cloNIDine 0.2 MG/24HR PATCH TRANSDERM SCH (16:00)
[2020-03-06] MEDS ORDERED: cloNIDine 0.1 MG/24HR PATCH TRANSDERM SCH (16:15)
[2020-03-06 16:16] LABS: Glucose,Whole Blood 137 mg/dL (75-99)
[2020-03-06] MEDS ORDERED: ACETAMINOPHEN IV (For NPO) 1,000 MG in EMPTY BAG 1 BAG IVPB SCH ×2 (16:16→18:00)
[2020-03-06] MEDS: ASPIRIN 81 MG PO SCH (16:22)
[2020-03-06] MEDS: PIPERACILLIN-TAZOBACTAM 3.375 GM in SODIUM CHLORIDE 0.9% 100 ML IVPB SCH (16:33)
[2020-03-06] MEDS: SODIUM CHLORIDE 0.9% 1,000 ML IV SCH (16:34)
[2020-03-06] MEDS ORDERED: PROPOFOL 100 ML IV ONE (17:19)
[2020-03-06] MEDS ORDERED: CISATRACURIUM 2 MG/ML 5 ML VIAL IV ONE (17:19)
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
--- NOTE | 2020-03-06 17:36 | P.PCN ---
Date of Procedure: 03/06/20 Preoperative Diagnosis: Altered mental status Postoperative Diagnosis: Altered mental status Procedure(s) Performed: Triple-lumen catheter insertion Anesthesia: local Surgeon: Sheila Lubin Estimated Blood Loss (ml): 0 Pathology: none sent Condition: critical Disposition: ICU Operative Findings: Indication: Hemodynamic monitoring/Intravenous access. A time-out was completed verifying correct patient, procedure, site, positioning, and implant(s) or special equipment if applicable. The patient was placed in a dependent position appropriate for central line placement based on the vein to be cannulated. The patient left shoulder neck was prepped and draped in sterile fashion. 1% Lidocaine was used to anesthetize the surrounding skin area. A triple lumen 9F Cordis catheter was introduced into the left IJ internal jugular or common femoral] vein using Seldinger technique. The catheter was threaded smoothly over the guide wire and appropriate blood return was obtained. Each lumen of the catheter was evacuated of air and flushed with sterile saline. The catheter was then sutured in place to the skin and a sterile dressing applied. Perfusion to the extremity distal to the point of catheter insertion was checked and found to be adequate. The patient tolerated the procedure well and there were no complications.
[2020-03-06] MEDS: PROPOFOL 1,000 MG in EMPTY BAG 1 BAG IV SCH (17:42)
[2020-03-06] MEDS: levETIRAcetam IV 500 MG in SODIUM CHLORIDE 0.9% 100 ML IVPB SCH (17:42)
--- NOTE | 2020-03-06 17:42 | P.PCN ---
Date of Procedure: 03/06/20 Preoperative Diagnosis: Altered mental status Postoperative Diagnosis: Altered mental status Procedure(s) Performed: Intubation Anesthesia: MAC Surgeon: Sheila Lubin Estimated Blood Loss (ml): 0 Pathology: other Condition: critical Disposition: ICU Operative Findings: Indication: Respiratory compromise. A time-out was completed verifying correct patient, procedure, site, positioning, and implant(s) or special equipment if applicable. The patient was positioned appropriately and a #8 endotracheal tube was placed under direct laryngoscopy. The tube was anchored at 26 cm at the teeth. Correct placement was confirmed by presence of bilateral breath sounds without air sounds in the abdomen on auscultation. An end-tidal CO2 monitor was also used to confirm tracheal placement of the ET tube. A chest x-ray was ordered to assess for pneumothorax and verify endotracheal tube placement. The patient tolerated the procedure well and there were no complications.
[2020-03-06] MEDS ORDERED: LACTULOSE 200 GM/300 ML (FROM 1/2 GAL JUG) RECTAL SCH (18:00)
--- NOTE | 2020-03-06 18:01 | XR ---
EXAMINATION TYPE: XR chest 1V portable DATE OF EXAM: 03/06/2020 COMPARISON: Prior chest x-ray same dated earlier time HISTORY: Endotracheal tube adjustment TECHNIQUE: Single frontal view of the chest is obtained. FINDINGS: Endotracheal tube is been advanced and is approximately 3 cm above the level of rustam. No significant interval change. IMPRESSION: Endotracheal tube in appropriate position
--- NOTE | 2020-03-06 18:06 | XR ---
EXAMINATION TYPE: XR chest 1V portable DATE OF EXAM: 03/06/2020 COMPARISON: Prior chest x-ray dated 03/06/2020 and earlier time HISTORY: Endotracheal tube placement TECHNIQUE: Single frontal view of the chest is obtained. FINDINGS: Endotracheal tube is present overlying the tracheal air column, there is a left jugular ce ntral venous catheter with distal tip overlying superior vena cava, NG tube has been placed and is ov erlying appropriate position. There is no evident pneumothorax or pleural effusion. Strand-like densi ties are present at the lung bases. No pneumothorax or pleural effusion. Heart size is stable. Aorta is dense. IMPRESSION: No evident complication status post intubation, central line placement. Possible subsegm ental basilar atelectatic changes, correlate for possible interstitial edema.
[2020-03-06 18:07] LABS: ABG Base Excess -1.9 mmol/L; ABG HCO3 25 mmol/L (21-25); ABG Oxygen Saturation 98.9 % (94-97); ABG PCO2 50 mmHg (35-45); ABG PO2 301 mmHg (83-108); ABG TCO2 26 mmol/L (19-24)
[2020-03-06 18:08] LABS: Allen Test Performed? no
[2020-03-06 18:23] LABS: Glucose,Whole Blood 115 mg/dL (75-99)
[2020-03-06] MEDS ORDERED: NALOXONE 0.4 MG/ML 1 ML VIAL IV PRN (18:47)
[2020-03-06 19:24] LABS: Amorphous Sediment,Urine Rare /hpf; Appearance,Urine Cloudy (Clear); Bacteria,Urine Occasional /hpf; Bilirubin,Urine Negative (Negative); Blood,Urine Large (Negative); Color,Urine Light Red; Glucose,Urine (UA) Negative (Negative); Ketones,Urine Negative (Negative); Leukocyte Esterase,Urine Large (Negative); Nitrite,Urine Negative (Negative); PH, Urine 5.5 (5.0-8.0); Protein,Urine 2+ (Negative); RBC,Urine >182 /hpf (0-5); Specific Gravity,Urine 1.022 (1.001-1.035); Squamous Epithelial Cell,Urine <1 /hpf (0-4); Urobilinogen,Urine <2.0 mg/dL (<2.0); WBC,Urine 129 /hpf (0-5)
[2020-03-06] MEDS: CHLORHEXIDINE GLUCONATE 15 ML CUP MUCOUS MEM SCH (20:13)
[2020-03-06] MEDS: prednisoLONE ACETATE 1% OPHTH DROPS 5 ML BTL BOTH EYES SCH (20:14)
[2020-03-06] MEDS: FAMOTIDINE 20 MG/2 ML VIAL IV SCH (20:14)
[2020-03-06] MEDS ORDERED: levETIRAcetam IV 500 MG in SODIUM CHLORIDE 0.9% 100 ML IVPB SCH ×4 (21:00)
[2020-03-07] MEDS: PIPERACILLIN-TAZOBACTAM 3.375 GM in SODIUM CHLORIDE 0.9% 100 ML IVPB SCH ×3 (00:21→17:52)
[2020-03-07] MEDS: SODIUM CHLORIDE 0.9% 1,000 ML IV SCH ×2 (00:22→11:37)
[2020-03-07 01:34] LABS: Glucose,Whole Blood 120 mg/dL (75-99)
--- NOTE | 2020-03-07 02:40 | PCN ---
PROCEDURE NOTE PROCEDURE: Right radial arterial line insertion. PREOPERATIVE DIAGNOSIS: Acute respiratory failure, seizure activity, altered mental status. POSTOPERATIVE DIAGNOSIS: Acute respiratory failure, seizure activity, altered mental status. ARTERIAL LINE PLACEMENT: Indications: Hemodynamic monitoring. A time-out was completed verifying correct patient, procedure, site, positioning, and implant(s) or special equipment if applicable. Yefri's test was performed to ensure adequate perfusion. The patient's right wrist was prepped and draped in sterile fashion. 1% Lidocaine was used to anesthetize the area. An 18G Arrow arterial line was introduced into the right radial artery. The catheter was threaded over the guide wire and the needle was removed with appropriate pulsatile blood return. Blood loss was minimal. The catheter was then sutured in place to the skin and a sterile dressing applied. Perfusion to the extremity distal to the point of catheter insertion was checked and found to be adequate. The patient tolerated the procedure well and there were no immediate complications. Good waveform was noted. Line was flushed. It was sutured in place. Sterile dressing was applied. MMODL / IJN: [id number] /
[2020-03-07 02:58] LABS: Hepatitis A Antibody IgM Non-Reactive (Non-Reactive); Hepatitis B Core IgM Non-Reactive (Non-Reactive); Hepatitis B Surface Antigen Non-Reactive (Non-Reactive); Hepatitis C IgG Antibody Non-Reactive (Non-Reactive)
[2020-03-07 05:11] LABS: ABG HCO3 21 mmol/L (21-25); ABG Oxygen Saturation 97.4 % (94-97); ABG PCO2 34 mmHg (35-45); ABG PO2 104 mmHg (83-108); ABG TCO2 22 mmol/L (19-24)
[2020-03-07 05:34] LABS: Basophils % (A) 0 %; Eosinophils # (A) 0.1 k/uL (0-0.7); Eosinophils % (A) 1 %; HCT 41.9 % (39.0-53.0); Lymphocytes % (A) 7 %; MCH 32.6 pg (25.0-35.0); MCV 101.7 fL (80.0-100.0); Macrocytosis Slight; Monocytes # (A) 0.3 k/uL (0-1.0); Monocytes % (A) 2 %; Neutrophils # (A) 14.1 k/uL (1.3-7.7); Neutrophils % (A) 90 %; Platelet Count 159 k/uL (150-450); RBC 4.12 m/uL (4.30-5.90); RDW 14.7 % (11.5-15.5); WBC 15.6 k/uL (3.8-10.6)
[2020-03-07 05:36] LABS: HGB 13.4 gm/dL (13.0-17.5)
[2020-03-07 05:39] LABS: African American GFR (CKD) >90 (>60 ml/min/1.73 sqM); Albumin 2.8 g/dL (3.5-5.0); Alkaline Phosphatase 68 U/L (38-126); Anion Gap 4 mmol/L; Blood Urea Nitrogen 34 mg/dL (9-20); Calcium 8.2 mg/dL (8.4-10.2); Carbon Dioxide 21 mmol/L (22-30); Chloride 114 mmol/L (98-107); Glucose 112 mg/dL (74-99); Non-African American GFR(CKD) >90 (>60 ml/min/1.73 sqM); Potassium 4.2 mmol/L (3.5-5.1); Sodium 139 mmol/L (137-145); Total Bilirubin 1.1 mg/dL (0.2-1.3); Total Protein 5.6 g/dL (6.3-8.2)
[2020-03-07 05:43] LABS: Allen Test Performed? no
[2020-03-07 06:02] LABS: ALT 2827 U/L (4-49); AST 5231 U/L (17-59)
[2020-03-07] MEDS: levETIRAcetam IV 500 MG in SODIUM CHLORIDE 0.9% 100 ML IVPB SCH (06:09)
[2020-03-07] MEDS: THIAMINE 100 MG TAB PO SCH ×2 (06:09→17:52)
[2020-03-07] MEDS: PROPOFOL 1,000 MG in EMPTY BAG 1 BAG IV SCH ×2 (07:15→11:53)
--- NOTE | 2020-03-07 08:34 | US ---
EXAMINATION TYPE: US gallbladder DATE OF EXAM: 03/07/2020 COMPARISON: NONE CLINICAL HISTORY: elevated liver enzymes. intubated ICU patient EXAM MEASUREMENTS: Liver Length: 17.2 cm Gallbladder Wall: 0.2 cm CBD: 0.5 cm Right Kidney: 10.6 x 5.3 x 4.5 cm Pancreas: wnl Liver: wnl Gallbladder: tortuous in appearance with no obvious abnormalities Evidence for sonographic Jensen's sign: patient nonresponsive CBD: wnl Right Kidney: wnl IMPRESSION: 1. No acute right upper quadrant abnormality
[2020-03-07] MEDS: ASPIRIN 81 MG PO SCH (08:44)
[2020-03-07] MEDS: FAMOTIDINE 20 MG/2 ML VIAL IV SCH (08:44)
[2020-03-07] MEDS: CHLORHEXIDINE GLUCONATE 15 ML CUP MUCOUS MEM SCH (08:44)
[2020-03-07] MEDS: METOPROLOL SUCCINATE (ER) 25 MG TAB.ER.24H PO SCH (08:45)
[2020-03-07] MEDS: prednisoLONE ACETATE 1% OPHTH DROPS 5 ML BTL BOTH EYES SCH (08:45)
[2020-03-07 09:05] LABS: Glucose,Whole Blood 113 mg/dL (75-99)
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
--- NOTE | 2020-03-07 09:42 | XR ---
EXAMINATION TYPE: XR chest 1V portable DATE OF EXAM: 03/07/2020 COMPARISON: Chest radiograph 03/06/2020 HISTORY: Tube placement TECHNIQUE: Single frontal portable view of the chest is obtained. FINDINGS: Endotracheal tube distal tip 4.8 cm from the rustam. Left-sided internal jugular central v enous catheter distal tip over the superior vena cava. Enteric tube distal tip overlies the distal es ophagus, and side port overlies the mid esophagus. There is increased airspace opacity and atelectasi s of the right lung base. No pleural effusion or pneumothorax seen. The cardiac silhouette size is wi thin normal limits. The osseous structures are intact. IMPRESSION: 1. Enteric tube distal tip and side-port overlie the esophagus. Recommend advancing enteric tube appr oximately 15 cm. 2. Increased patchy opacity of the right lung base may represent aspiration pneumonia. A Yellow level critical message alert has been initiated for Sheila Lubin MD via the [facility] on 03/07/2020 9:39 AM. This message alert has been sent to Sheila ruiz MD via the preferences provided by the clinician for the receipt of Radiology Critical Findings. Message ID [id number].
[2020-03-07 09:58] VITALS: BMI 24.2
--- NOTE | 2020-03-07 12:57 | P.PN ---
Subjective 59-year-old male was brought to ER after he was found unresponsive in the shed and the patient apparently was attended been here about 2 therapy. When I valid the patient patient was having a focal seizure on the left side with the tonic clonic activity in the left arm and left leg and patient is unresponsive to verbal stimuli or tactile stimuli. She appears to have had alcohol withdrawal seizures. Patient was given 2 mg of Ativan after which she is she is is improved patient was also found to be tachycardic. Patient does drink alcohol on daily basis was treated for alcohol withdrawals in the past and patient is found unresponsive with the hydrocodone tends supposed to have 120 pills in it that all MT patient did get this prescription about 10 days ago. Patient has significant other lab abnormalities including admitted liver enzymes lactic is doses, acute renal failure, mildly elevated troponin, EKG showing sinus tachycardia without any acute ST-T wave changes chest x-ray did not show any significant abnormality computed tomography scan of the head showed an supple malacia relating to wild occipital infarct. And there is a stable old lacunar infarct in the anterior right basilar ganglia with chronic ischemic insular white matter changes in the left. Patient in the past underwent workup for CVA in his previous hospitalization patient appears to have had right-sided weakness and the spinal stenosis with brachial plexopathy. 03/07/2020 Patient Had As Having Twitching Activity Was Either Post Ictal or Active Seizures Because of Which Are a Call Restrooms Or Lounges Maid Started Him on The Patient Was Subsequently Transferred to Intensive Care Unit Where Patient Was Intubated Patient Is Being Treated for Alcohol Withdrawals Patient Had Fever Late in the Day Patient Was Started on Zosyn Empirically but the the Possible Source of Infection Being Aspiration Pneumonia Urinalysis Abnormal As Well. But this urine is probably not the source of infection. Patient is significantly dehydrated because of which patient has done-colored urine. Patient is presently intubated sedated . Liver enzymes continue to go up serum creatinine improved ammonia level improved or troponin elevation is probably because of sepsis will repeat another set of troponin. Review of systems: Unable to obtain as patient is intubated and sedated All inpatient medications were reviewed and appropriate changes in these medications as dictated in the interval history and assessment and plan. Objective - Vital Signs Vital signs: Vital Signs Temp 99.3 F 03/07/20 08:00 Pulse 89 03/07/20 11:30 Resp 26 H 03/07/20 11:30 BP 102/75 03/07/20 11:30 Pulse Ox 99 03/07/20 11:30 Intake & Output 03/06/20 03/07/20 03/07/20 18:59 06:59 18:59 Intake Total 1620 1300.000 697.439 Output Total 220 810 280 Balance 1400 490.000 417.439 Weight 68.039 kg 70.1 kg 70.1 kg Intake: IV 1620 1200 600 Invasive Line 1 10 Invasive Line 2 10 Piperacillin-Tazobactam 3 100 100 .375 gm In Sodium Chloride 0.9% 100 ml @ 25 mls/hr IVPB Q8HR [facility] Rx# :[id number] Sodium Chloride 0.9% 1, 1000 1200 500 000 ml @ 999 mls/hr IV . Q1H1M [facility] Rx#:[id number] levETIRAcetam IV 500 mg 500 In Sodium Chloride 0.9% 100 ml @ 400 mls/hr IVPB Q12H [facility] Rx#:[id number] Intake, IV Titration 100.000 97.439 Amount Propofol 1,000 mg In 100.000 97.439 Empty Bag 1 bag @ Titrate IV .Q0M [facility] Rx#: [id number] Output: Urine 220 810 280 Uretheral (Lopez) 200 Other: Voiding Method Indwelling Catheter Indwelling Catheter Indwelling Catheter # Voids 1 ABP, PAP, CO, CI - Last Documented Arterial Blood Pressure 93/61 - Exam PHYSICAL EXAMINATION: GENERAL: Patient is unresponsive actively seizing disheveled for overall general hygiene HEENT: No scleral icterus. No conjunctival pallor. Normocephalic, atraumatic. No pharyngeal erythema. No thyromegaly. CARDIOVASCULAR: S1 and S2 present. No murmurs, rubs, or gallops. Tachycardia PULMONARY: Limited as patient was actively seizing ABDOMEN: Soft, nontender, nondistended, normoactive bowel sounds. No palpable organomegaly. MUSCULOSKELETAL: No joint swelling or deformity. EXTREMITIES: No cyanosis, clubbing, or pedal edema. NEUROLOGICAL: Unable to assess SKIN: No rashes. - Labs CBC & Chem 7: 03/07/20 05:00 03/07/20 05:00 Labs: Abnormal Lab Results - Last 24 Hours (Table) 03/06/20 03/06/20 03/06/20 Range/Units 13:40 16:15 18:02 WBC (3.8-10.6) k/uL RBC (4.30-5.90) m/uL MCV (80.0-100.0) fL Neutrophils # (1.3-7.7) k/uL ABG pH (7.35-7.45) ABG pCO2 (35-45) mmHg ABG pO2 (83-108) mmHg ABG Total CO2 (19-24) mmol/L ABG O2 Saturation (94-97) % Chloride (98-107) mmol/L Carbon Dioxide (22-30) mmol/L BUN (9-20) mg/dL Glucose (74-99) mg/dL POC Glucose (mg/dL) 137 H 115 H (75-99) mg/dL Plasma Lactic Acid Cristopher 4.5 H* (0.7-2.0) mmol/L Calcium (8.4-10.2) mg/dL AST (17-59) U/L ALT (4-49) U/L Total Protein (6.3-8.2) g/dL Albumin (3.5-5.0) g/dL Urine Protein (Negative) Urine Blood (Negative) Ur Leukocyte Esterase (Negative) Urine RBC (0-5) /hpf Urine WBC (0-5) /hpf Amorphous Sediment (None) /hpf Urine Bacteria (None) /hpf 03/06/20 03/06/20 03/07/20 Range/Units 18:04 18:15 01:33 WBC (3.8-10.6) k/uL RBC (4.30-5.90) m/uL MCV (80.0-100.0) fL Neutrophils # (1.3-7.7) k/uL ABG pH 7.30 L (7.35-7.45) ABG pCO2 50 H (35-45) mmHg ABG pO2 301 H (83-108) mmHg ABG Total CO2 26 H (19-24) mmol/L ABG O2 Saturation 98.9 H (94-97) % Chloride (98-107) mmol/L Carbon Dioxide (22-30) mmol/L BUN (9-20) mg/dL Glucose (74-99) mg/dL POC Glucose (mg/dL) 120 H (75-99) mg/dL Plasma Lactic Acid Cristopher (0.7-2.0) mmol/L Calcium (8.4-10.2) mg/dL AST (17-59) U/L ALT (4-49) U/L Total Protein (6.3-8.2) g/dL Albumin (3.5-5.0) g/dL Urine Protein 2+ H (Negative) Urine Blood Large H (Negative) Ur Leukocyte Esterase Large H (Negative) Urine RBC >182 H (0-5) /hpf Urine WBC 129 H (0-5) /hpf Amorphous Sediment Rare H (None) /hpf Urine Bacteria Occasional H (None) /hpf 03/07/20 03/07/20 03/07/20 Range/Units 05:00 05:00 05:10 WBC 15.6 H (3.8-10.6) k/uL RBC 4.12 L (4.30-5.90) m/uL MCV 101.7 H (80.0-100.0) fL Neutrophils # 14.1 H (1.3-7.7) k/uL ABG pH (7.35-7.45) ABG pCO2 34 L (35-45) mmHg ABG pO2 (83-108) mmHg ABG Total CO2 (19-24) mmol/L ABG O2 Saturation 97.4 H (94-97) % Chloride 114 H (98-107) mmol/L Carbon Dioxide 21 L (22-30) mmol/L BUN 34 H (9-20) mg/dL Glucose 112 H (74-99) mg/dL POC Glucose (mg/dL) (75-99) mg/dL Plasma Lactic Acid Cristopher (0.7-2.0) mmol/L Calcium 8.2 L (8.4-10.2) mg/dL AST 5231 H (17-59) U/L ALT 2827 H (4-49) U/L Total Protein 5.6 L (6.3-8.2) g/dL Albumin 2.8 L (3.5-5.0) g/dL Urine Protein (Negative) Urine Blood (Negative) Ur Leukocyte Esterase (Negative) Urine RBC (0-5) /hpf Urine WBC (0-5) /hpf Amorphous Sediment (None) /hpf Urine Bacteria (None) /hpf 03/07/20 Range/Units 09:02 WBC (3.8-10.6) k/uL RBC (4.30-5.90) m/uL MCV (80.0-100.0) fL Neutrophils # (1.3-7.7) k/uL ABG pH (7.35-7.45) ABG pCO2 (35-45) mmHg ABG pO2 (83-108) mmHg ABG Total CO2 (19-24) mmol/L ABG O2 Saturation (94-97) % Chloride (98-107) mmol/L Carbon Dioxide (22-30) mmol/L BUN (9-20) mg/dL Glucose (74-99) mg/dL POC Glucose (mg/dL) 113 H (75-99) mg/dL Plasma Lactic Acid Cristopher (0.7-2.0) mmol/L Calcium (8.4-10.2) mg/dL AST (17-59) U/L ALT (4-49) U/L Total Protein (6.3-8.2) g/dL Albumin (3.5-5.0) g/dL Urine Protein (Negative) Urine Blood (Negative) Ur Leukocyte Esterase (Negative) Urine RBC (0-5) /hpf Urine WBC (0-5) /hpf Amorphous Sediment (None) /hpf Urine Bacteria (None) /hpf Microbiology - Last 24 Hours (Table) 03/06/20 11:20 Urine Culture - Preliminary Urine,Catheterized Assessment and Plan Plan: -Possible alcohol withdrawal seizures patient will be started on Ativan seemed to be appropriate protocol patient was started on IV fluids Have lactic is doses seconded to seizures no other evidence of infection was evident at this time -Acute renal failure secondary to poor pedal intake dehydration: Patient will be started and continued on IV fluids -Transaminitis or elevated liver enzymes secondary to possible alcoholic hepatitis will also obtain hepatitis panel. The liver and gallbladder Hyperleukocytosis reactive in nature -Possible overdose on opiates -Anion gap metabolic acidosis secondary to lactic acidosis -Alcohol abuse -Coronary artery disease patient will be resumed on aspirin and a statin whenever he can take and tolerate, patient appears to have been discharged on aspirin and Lipitor metoprolol lisinopril Plavix. It doesn't appear that patient hasn't been taking this medications -History of previous CVAs in the past -Cervical spinal stenosis -Elevated troponins probably secondary to acute renal failure cardiology was consulted and there was a valid the patient -Coronary adenopathy secondary to liver dysfunction from alcohol -Due to prophylaxis additionally due to prophylaxis is not necessary as patient is not anticoagulated and INR of about 1. 7 GI prophylaxis with the Pepcid or Protonix -Sinus tachycardia: Secondary to intravascular depletion and also rebound from not using metoprolol
[2020-03-07 13:17] VITALS: TEMP 98.8
--- NOTE | 2020-03-07 13:18 | P.PN ---
Subjective Progress Note Date: 03/07/20 On today's evaluation of 03/07/2020, the patient is in the intensive care unit intubated on a mechanical ventilator and the patient has been placed on propofol. There was a concern of ongoing seizure activity and the patient was given a combination of propofol and Keppra. Currently there is no ongoing t witching or tremor still indicate any clinical seizures. Neurology is on the case and EEG is to follow. The patient meanwhile was given IV fluids. He was quite dry and received a total of 4 L of IV fluids and his CVP monitoring will be checked today to assess his volume status. Currently is on normal saline at the rate of 100 mL an hour. The patient is receiving propofol at 50 g per KG per minute. He remains on a mechanical ventilator. He is an assist-control mode at the rate of 24 with a tidal volume of 450 and FiO2 of 50% with a PEEP of 5. The patient is hemodynamically stable. The patient is afebrile. The chest x-ray from today shows that the ET tube is in a good location. There may be some increased patchy opacity in the right lung base which could indicate a possibility of an aspiration. The patient is a orogastric esophagus. He was recommended to advanced orogastric tube further. The white cell count of 15.650 was at 13.4. Blood gas showed a pH of 7.4 with a pCO2 of 34 and pO2 of 104. This was done while the patient of 50% FiO2. The liver function tests are still elevated. SGOT is at 5231 with an SGPT of 2827. Ammonia level is down to 27. BUN is a 34 with a creatinine of 0.9. Cultures are still pending for now. Ultrasound the gallbladder was done and showed no acute abnormalities. Objective - Vital Signs Vital signs: Vital Signs Temp 99.3 F 03/07/20 08:00 Pulse 89 03/07/20 11:30 Resp 26 H 03/07/20 11:30 BP 102/75 03/07/20 11:30 Pulse Ox 99 03/07/20 11:30 Intake & Output 03/06/20 03/07/20 03/07/20 18:59 06:59 18:59 Intake Total 1620 1300.000 697.439 Output Total 220 810 280 Balance 1400 490.000 417.439 Weight 68.039 kg 70.1 kg 70.1 kg Intake: IV 1620 1200 600 Invasive Line 1 10 Invasive Line 2 10 Piperacillin-Tazobactam 3 100 100 .375 gm In Sodium Chloride 0.9% 100 ml @ 25 mls/hr IVPB Q8HR [facility] Rx# :[id number] Sodium Chloride 0.9% 1, 1000 1200 500 000 ml @ 999 mls/hr IV . Q1H1M [facility] Rx#:[id number] levETIRAcetam IV 500 mg 500 In Sodium Chloride 0.9% 100 ml @ 400 mls/hr IVPB Q12H [facility] Rx#:[id number] Intake, IV Titration 100.000 97.439 Amount Propofol 1,000 mg In 100.000 97.439 Empty Bag 1 bag @ Titrate IV .Q0M [facility] Rx#: [id number] Output: Urine 220 810 280 Uretheral (Lopez) 200 Other: Voiding Method Indwelling Catheter Indwelling Catheter Indwelling Catheter # Voids 1 ABP, PAP, CO, CI - Last Documented Arterial Blood Pressure 93/61 - Exam GENERAL: Sedated, comfortable likely distress. Orotracheal and breast interval both in place. Very poor dental hygiene. The patient has a left IJ triple- lumen catheter in place. HEENT: No scleral icterus. No conjunctival pallor. Normocephalic, atraumatic. No pharyngeal erythema. No thyromegaly. Head exam was generally normal. There was no scleral icterus or corneal arcus. Mucous membranes were moist. Neck was supple and without jugular venous distension, thyromegaly, or carotid bruits. Carotids were easily palpable bilaterally. There was no adenopathy. Extremely poor dentition with multiple missing teeth.Neck is supple. Cardiac exam revealed the PMI to be normally situated and sized. The rhythm was regular and no extrasystoles were noted during several minutes of auscultation. The first and second heart sounds were normal and physiologic splitting of the second heart sound was noted. There were no murmurs, rubs, clicks, or gallops. Lungs were clear to auscultation and percussion, and with normal diaphragmatic excursion. No wheezes or rales were noted. ABDOMEN: Soft, nontender, nondistended, normoactive bowel sounds. No palpable organomegaly. MUSCULOSKELETAL: No joint swelling or deformity. EXTREMITIES: No cyanosis, clubbing, or pedal edema. NEUROLOGICAL: The patient is sedated. No signs of any clinical seizures. Pupils are equal reactive to light. No nystagmus. No clonus. No Babinski. - Labs CBC & Chem 7: 03/07/20 05:00 03/07/20 05:00 Labs: Abnormal Lab Results - Last 24 Hours (Table) 03/06/20 03/06/20 03/06/20 Range/Units 13:40 16:15 18:02 WBC (3.8-10.6) k/uL RBC (4.30-5.90) m/uL MCV (80.0-100.0) fL Neutrophils # (1.3-7.7) k/uL ABG pH (7.35-7.45) ABG pCO2 (35-45) mmHg ABG pO2 (83-108) mmHg ABG Total CO2 (19-24) mmol/L ABG O2 Saturation (94-97) % Chloride (98-107) mmol/L Carbon Dioxide (22-30) mmol/L BUN (9-20) mg/dL Glucose (74-99) mg/dL POC Glucose (mg/dL) 137 H 115 H (75-99) mg/dL Plasma Lactic Acid Cristopher 4.5 H* (0.7-2.0) mmol/L Calcium (8.4-10.2) mg/dL AST (17-59) U/L ALT (4-49) U/L Total Protein (6.3-8.2) g/dL Albumin (3.5-5.0) g/dL Urine Protein (Negative) Urine Blood (Negative) Ur Leukocyte Esterase (Negative) Urine RBC (0-5) /hpf Urine WBC (0-5) /hpf Amorphous Sediment (None) /hpf Urine Bacteria (None) /hpf 03/06/20 03/06/20 03/07/20 Range/Units 18:04 18:15 01:33 WBC (3.8-10.6) k/uL RBC (4.30-5.90) m/uL MCV (80.0-100.0) fL Neutrophils # (1.3-7.7) k/uL ABG pH 7.30 L (7.35-7.45) ABG pCO2 50 H (35-45) mmHg ABG pO2 301 H (83-108) mmHg ABG Total CO2 26 H (19-24) mmol/L ABG O2 Saturation 98.9 H (94-97) % Chloride (98-107) mmol/L Carbon Dioxide (22-30) mmol/L BUN (9-20) mg/dL Glucose (74-99) mg/dL POC Glucose (mg/dL) 120 H (75-99) mg/dL Plasma Lactic Acid Cristopher (0.7-2.0) mmol/L Calcium (8.4-10.2) mg/dL AST (17-59) U/L ALT (4-49) U/L Total Protein (6.3-8.2) g/dL Albumin (3.5-5.0) g/dL Urine Protein 2+ H (Negative) Urine Blood Large H (Negative) Ur Leukocyte Esterase Large H (Negative) Urine RBC >182 H (0-5) /hpf Urine WBC 129 H (0-5) /hpf Amorphous Sediment Rare H (None) /hpf Urine Bacteria Occasional H (None) /hpf 03/07/20 03/07/20 03/07/20 Range/Units 05:00 05:00 05:10 WBC 15.6 H (3.8-10.6) k/uL RBC 4.12 L (4.30-5.90) m/uL MCV 101.7 H (80.0-100.0) fL Neutrophils # 14.1 H (1.3-7.7) k/uL ABG pH (7.35-7.45) ABG pCO2 34 L (35-45) mmHg ABG pO2 (83-108) mmHg ABG Total CO2 (19-24) mmol/L ABG O2 Saturation 97.4 H (94-97) % Chloride 114 H (98-107) mmol/L Carbon Dioxide 21 L (22-30) mmol/L BUN 34 H (9-20) mg/dL Glucose 112 H (74-99) mg/dL POC Glucose (mg/dL) (75-99) mg/dL Plasma Lactic Acid Cristopher (0.7-2.0) mmol/L Calcium 8.2 L (8.4-10.2) mg/dL AST 5231 H (17-59) U/L ALT 2827 H (4-49) U/L Total Protein 5.6 L (6.3-8.2) g/dL Albumin 2.8 L (3.5-5.0) g/dL Urine Protein (Negative) Urine Blood (Negative) Ur Leukocyte Esterase (Negative) Urine RBC (0-5) /hpf Urine WBC (0-5) /hpf Amorphous Sediment (None) /hpf Urine Bacteria (None) /hpf 03/07/20 Range/Units 09:02 WBC (3.8-10.6) k/uL RBC (4.30-5.90) m/uL MCV (80.0-100.0) fL Neutrophils # (1.3-7.7) k/uL ABG pH (7.35-7.45) ABG pCO2 (35-45) mmHg ABG pO2 (83-108) mmHg ABG Total CO2 (19-24) mmol/L ABG O2 Saturation (94-97) % Chloride (98-107) mmol/L Carbon Dioxide (22-30) mmol/L BUN (9-20) mg/dL Glucose (74-99) mg/dL POC Glucose (mg/dL) 113 H (75-99) mg/dL Plasma Lactic Acid Cristopher (0.7-2.0) mmol/L Calcium (8.4-10.2) mg/dL AST (17-59) U/L ALT (4-49) U/L Total Protein (6.3-8.2) g/dL Albumin (3.5-5.0) g/dL Urine Protein (Negative) Urine Blood (Negative) Ur Leukocyte Esterase (Negative) Urine RBC (0-5) /hpf Urine WBC (0-5) /hpf Amorphous Sediment (None) /hpf Urine Bacteria (None) /hpf Microbiology - Last 24 Hours (Table) 03/06/20 11:20 Urine Culture - Preliminary Urine,Catheterized Assessment and Plan Plan: 1 altered mental status currently under investigation. Consider metabolic encephalopathy/hepatic encephalopathy. Rule out drug induced encephalopathy. Consider delirium tremens. Ongoing seizure versus postictal state needs to be also considered as the patient was found to have seizure activity prior to him coming into the ICU. On today's evaluation, the patient is was sedated with propofol and the patient is on IV Keppra. EEG was ordered. Neurology evaluation was done. There is a concern for focal seizures the patient has had a previous CVA and seizures could have been provoked by alcohol and possibly UTI. He has an old right occipital CVA and right basal ganglia CVA. 2 chronic alcoholism 3 suspect alcohol withdrawal seizures, currently sedated 4 alcoholic hepatitis with abnormal LFTs and coagulopathy and hyperammonemia consistent with some signs of chronic liver disease 5 acute kidney injury, consider intravascular volume depletion/dehydration 6 fever under investigation currently on empiric antibiotic coverage and IV Zosyn 7 mild lactic acidosis, anion gap metabolic acidosis secondary to above 8 fever, leukocytosis, and tachycardia is considered systemic inflammatory response syndrome. 9 coronary artery disease with previous myocardial infarction 10 history of CVA 11 history of peptic ulcer disease 12 history of peripheral vascular disease 13 history of right hand neuropathy 14 degenerative arthritis 15 hypertension 16. Hyperlipidemia 17 COPD Plan Awaiting EEG Continue propofol Continue Keppra 500 mg twice a day Check a CVP monitor Continue IV fluids Continue broad-spectrum antibiotics initiate enteral feeding for nutritional support Thiamine Monitor liver function tests. I'll ultrasound the gallbladder is within normal limits. We'll continue to follow. Condition is critical. Long-term prognosis poor baseline above-mentioned comorbidities. Evaluation was done in more than 30 minutes and there is a critically care evaluation. Time with Patient: Greater than 30
[2020-03-07] MEDS ORDERED: LORazepam 2 MG/ML INJ IV STA (14:49)
[2020-03-07] MEDS ORDERED: SODIUM CHLORIDE 0.9% IVPB STA (14:52)
[2020-03-07] MEDS ORDERED: LEVETIRACETAM IVPB STA (14:52)
--- NOTE | 2020-03-07 16:25 | P.DS ---
Providers Date of admission: 03/06/20 13:32 Attending physician: Gary Campuzano Consults: 03/06/20 13:29 Consult Physician Urgent Consulting Provider: Rafita Fields Consult Reason/Comments: Hepatitis, hepatic encephalopathy Do you want consulting provider notified?: Yes 03/06/20 15:46 Consult Physician Routine Consulting Provider: Brennan Fischer Consult Reason/Comments: r/o stroke Do you want consulting provider notified?: Yes 03/06/20 16:14 Consult Physician Routine Consulting Provider: Sheila Lubin Consult Reason/Comments: icu management Do you want consulting provider notified?: Yes 03/06/20 16:24 Consult Physician Routine Consulting Provider: Domenico Amado Consult Reason/Comments: sepsis Do you want consulting provider notified?: Yes Primary care physician: Stated None Hospital Course: 59-year-old male was brought to ER after he was found unresponsive in the shed and the patient apparently was attended been here about 2 therapy. When I valid the patient patient was having a focal seizure on the left side with the tonic clonic activity in the left arm and left leg and patient is unresponsive to verbal stimuli or tactile stimuli. She appears to have had alcohol withdrawal seizures. Patient was given 2 mg of Ativan after which she is she is is improved patient was also found to be tachycardic. Patient does drink alcohol on daily basis was treated for alcohol withdrawals in the past and patient is found unresponsive with the hydrocodone tends supposed to have 120 pills in it that all MT patient did get this prescription about 10 days ago. Patient has significant other lab abnormalities including admitted liver enzymes lactic is doses, acute renal failure, mildly elevated troponin, EKG showing sinus tachycardia without any acute ST-T wave changes chest x-ray did not show any significant abnormality computed tomography scan of the head showed an supple malacia relating to wild occipital infarct. And there is a stable old lacunar infarct in the anterior right basilar ganglia with chronic ischemic insular white matter changes in the left. Patient in the past underwent workup for CVA in his previous hospitalization patient appears to have had right-sided weakness and the spinal stenosis with brachial plexopathy. 03/07/2020 Patient Had As Having Twitching Activity Was Either Post Ictal or Active Seizures Because of Which Are a Call Human Resources Generalist Started Him on The Patient Was Subsequently Transferred to Intensive Care Unit Where Patient Was Intubated Patient Is Being Treated for Alcohol Withdrawals Patient Had Fever Late in the Day Patient Was Started on Zosyn Empirically but the the Possible Source of Infection Being Aspiration Pneumonia Urinalysis Abnormal As Well. But this urine is probably not the source of infection. Patient is significantly dehydrated because of which patient has done-colored urine. Patient is presently intubated sedated . Liver enzymes continue to go up serum creatinine improved ammonia level improved or troponin elevation is probably because of sepsis will repeat another set of troponin. Patient had an EEG later in the day and the found to have continuous seizures because of which neurology is recommending transfer to [facility] for continuous EEG monitoring. She will be transferred to [facility] to neuro intensive care unit. PHYSICAL EXAMINATION: GENERAL: Patient is intubated sedated HEENT: No scleral icterus. No conjunctival pallor. Normocephalic, atraumatic. No pharyngeal erythema. No thyromegaly. CARDIOVASCULAR: S1 and S2 present. No murmurs, rubs, or gallops. Tachycardia PULMONARY: Fairly good air entry without any wheezing or crackles ABDOMEN: Soft, nontender, nondistended, normoactive bowel sounds. No palpable organomegaly. MUSCULOSKELETAL: No joint swelling or deformity. EXTREMITIES: No cyanosis, clubbing, or pedal edema. NEUROLOGICAL: Unable to assess patient is sedated at this time SKIN: No rashes. Assessment and Plan Plan: -Acute respiratory failure: Secondary to alcohol withdrawal and hypoxic respiratory failure patient is presently intubated -alcohol withdrawal seizures patient is on Atrovent protocol, patient is also receiving [facility] neurology evaluate the patient patient had an EEG -Possible sepsis most probably secondary to aspiration pneumonia, UTI is on the possibility but low possibility Lactic acidosis seconded to seizures no other evidence of infection was evident at this time -Acute renal failure secondary to poor pedal intake dehydration: Patient will be started and continued on IV fluids -Transaminitis or elevated liver enzymes secondary to possible alcoholic hepatitis will also obtain hepatitis panel. The liver and gallbladder -eukocytosis probably secondary to sepsis -Possible overdose on opiates -Anion gap metabolic acidosis secondary to lactic acidosis -Alcohol abuse -Coronary artery disease patient will be resumed on aspirin and a statin whenever he can take and tolerate, patient appears to have been discharged on aspirin and Lipitor metoprolol lisinopril Plavix. It doesn't appear that patient hasn't been taking this medications -History of previous CVAs in the past -Cervical spinal stenosis -Elevated troponins probably secondary to acute renal failure cardiology was consulted and there was a valid the patient -DVT to prophylaxis additionally DVT prophylaxis is not necessary as patient is not anticoagulated and INR of about 1. 7 GI prophylaxis with the Pepcid or Protonix -Sinus tachycardia: Secondary to intravascular depletion and also rebound from not using metoprolol Plan - Discharge Summary Discharge Rx Participant: No New Discharge Prescriptions: No Action HYDROcodone/APAP 10-325MG [[place] 10-325] 1 tab PO Q6HR prednisoLONE ACETATE [Pred Forte 1%] 1 drop INTRAOCULA BID Discharge Medication List HYDROcodone/APAP 10-325MG [[place] 10-325] 1 tab PO Q6HR 03/06/20 [History] prednisoLONE ACETATE [Pred Forte 1%] 1 drop INTRAOCULA BID 03/06/20 [History] Follow up Appointment(s)/Referral(s): None,Stated [Primary Care Provider] - 1-2 days
[2020-03-07 17:53] LABS: Glucose,Whole Blood 99 mg/dL (75-99)
[2020-03-07] MEDS ORDERED: levETIRAcetam IV 1,000 MG in SALINE 1 100ML.BAG IVPB SCH (21:00)
[2020-03-07 21:06] VITALS: BP 116/83; PULSE 86; RESP 22
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
--- NOTE | 2020-03-07 21:56 | EEG ---
ELECTROENCEPHALOGRAM REPORT TECHNICAL SUMMARY: This is a 21-channel EEG with EKG. CLINICAL DATA: This is a 59-year-old gentleman with a history of chronic alcohol use, opiate use and right occipital old stroke who was brought into the hospital on 03/06/2020 because he was found obtunded. During the hospital he had two focal seizures. The EEG was done to evaluate for seizures or epileptiform discharges. DESCRIPTION: The patient is intubated and on sedation. There is no clear posterior-dominant rhythm bilaterally. On the left hemisphere there is diffuse moderate to low voltage of 0.5 to 1 Hz delta slowing on the entire left hemisphere throughout the study. There is no physiological stage II sleep noted. There is excessive fast activity seen during the study. Ictal, interictal: There are basically continuous basically moderate to high voltage sharp spike and slow wave discharges over the entire right hemisphere , predominantly over the right posterior quadrants. It is 1 to 1.5 Hz activity throughout the study of the spike, sharp and slow wave discharges throughout the study, consist of lateralized periodic discharges. ACTIVATION PROCEDURE: Photic stimulation did not evoke a posterior driving response. Hyperventilation was not performed because of the patient's clinical status. EEG DIAGNOSIS: This is an abnormal routine EEG due to: 1. 1 to 1.5 sharp, spike and slow wave moderate to high voltage throughout the study consist LPDs over the right hemisphere, especially the posterior quadrant. 2. 0.5 to 1.5 Hz delta slowing over the left hemisphere. 3. Excessive fast activity. CLINICAL INTERPRETATION: This is an abnormal routine EEG. LPDs were seen over the right hemisphere. The LPDs are a sign of focal irritability that can be seen in setting of acute lesion and prolonged status epilepticus. Also there is severe encephalopathy of unspecified etiology. The excessive fast activity can be due to medication effect. Clinical correlation recommended. RECOMMENDATION: Recommend long-term EEG if there is suspicion of seizure. MMODL / IJN: [id number] /
--- NOTE | 2020-03-07 23:22 | PN ---
PROGRESS NOTE DATE OF SERVICE: 03/07/2020 REASON FOR FOLLOWUP: Urinary tract infection and aspiration pneumonia. INTERVAL HISTORY: The patient is currently afebrile. The patient is hemodynamically stable, not on any pressor support. The patient remains intubated on the vent. FiO2 is currently down to 50%. No diarrhea has been reported. However, the patient did have significant purulent urine surgery yesterday. PHYSICAL EXAMINATION: Blood pressure is 116/83 with a pulse of 83, temperature 98. He is 100% on 50% FiO2. General description is a middle-aged male lying in bed in no distress. RESPIRATORY SYSTEM: Unlabored breathing. Clear to auscultation anteriorly. HEART: S1, S2. Regular rate and rhythm. ABDOMEN: Soft. No tenderness. LABS: Hemoglobin is 13.4, white count 15.6, BUN of 34, creatinine 0.91. DIAGNOSTIC IMPRESSION AND PLAN: Patient with acute respiratory failure which is multifactorial in this patient who did have a component of aspiration pneumonitis. Also with a urinary tract infection. The patient is currently covered with Zosyn; to continue while waiting for the culture to finalize and monitor his clinical course closely. MMODL / IJN: [id number] /
== END 2020-03-07 21:06 | disposition short-term general hospital (02) | DRG 896 ==
LOC: EC 10:51 → 3SCARD 13:32 → 2SICU 17:12
PROVIDERS: ADMIT Internal Medicine; ATTEND Internal Medicine
PROC: 5A1945Z Respiratory Ventilation, 24-96 Consecutive Hours (ICD-10-PCS; principal; 2020-03-06)
PROC: 0D9670Z Drainage of Stomach with Drainage Device, Via Natural or Artificial Opening (ICD-10-PCS; principal; 2020-03-06)
PROC: 02HV33Z Insertion of Infusion Device into Superior Vena Cava, Percutaneous Approach (ICD-10-PCS; principal; 2020-03-06)
PROC: 0BH17EZ Insertion of Endotracheal Airway into Trachea, Via Natural or Artificial Opening (ICD-10-PCS; principal; 2020-03-06)
PROC: 4A133B1 Monitoring of Arterial Pressure, Peripheral, Percutaneous Approach (ICD-10-PCS; 2020-03-06)
PROC: 03HY32Z Insertion of Monitoring Device into Upper Artery, Percutaneous Approach (ICD-10-PCS; 2020-03-06)
PROC: 4A133J1 Monitoring of Arterial Pulse, Peripheral, Percutaneous Approach (ICD-10-PCS; 2020-03-06)
PROC: 3E0G76Z Introduction of Nutritional Substance into Upper GI, Via Natural or Artificial Opening (ICD-10-PCS; 2020-03-07)
DX: F10.239 Alcohol dependence with withdrawal, unspecified (principal); A41.9 Sepsis, unspecified organism; R40.2222 Coma scale, best verbal response, incomprehensible words, at arrival to emergency department; J96.01 Acute respiratory failure with hypoxia; R65.20 Severe sepsis without septic shock; J69.0 Pneumonitis due to inhalation of food and vomit; K72.00 Acute and subacute hepatic failure without coma; N17.9 Acute kidney failure, unspecified; I69.351 Hemiplegia and hemiparesis following cerebral infarction affecting right dominant side; E87.2 Acidosis; D68.4 Acquired coagulation factor deficiency; N39.0 Urinary tract infection, site not specified; G54.0 Brachial plexus disorders; J44.9 Chronic obstructive pulmonary disease, unspecified; R56.9 Unspecified convulsions; K70.10 Alcoholic hepatitis without ascites; G93.89 Other specified disorders of brain; Z20.828 Contact with and (suspected) exposure to other viral communicable diseases; F11.10 Opioid abuse, uncomplicated; T40.601A Poisoning by unspecified narcotics, accidental (unintentional), initial encounter; E86.0 Dehydration; I69.312 Visuospatial deficit and spatial neglect following cerebral infarction; R40.2142 Coma scale, eyes open, spontaneous, at arrival to emergency department; R40.2352 Coma scale, best motor response, localizes pain, at arrival to emergency department; H53.483 Generalized contraction of visual field, bilateral; I10 Essential (primary) hypertension; I25.10 Atherosclerotic heart disease of native coronary artery without angina pectoris; E78.5 Hyperlipidemia, unspecified; K21.9 Gastro-esophageal reflux disease without esophagitis; M48.02 Spinal stenosis, cervical region; M13.0 Polyarthritis, unspecified; I25.2 Old myocardial infarction; Y90.0 Blood alcohol level of less than 20 mg/100 ml; R79.89 Other specified abnormal findings of blood chemistry; F17.200 Nicotine dependence, unspecified, uncomplicated; Z71.6 Tobacco abuse counseling; Z79.891 Long term (current) use of opiate analgesic; Z79.899 Other long term (current) drug therapy; Z87.01 Personal history of pneumonia (recurrent); Z87.11 Personal history of peptic ulcer disease; Z87.19 Personal history of other diseases of the digestive system; Z86.14 Personal history of Methicillin resistant Staphylococcus aureus infection; Z95.5 Presence of coronary angioplasty implant and graft; Z98.890 Other specified postprocedural states; Z96.641 Presence of right artificial hip joint; Z87.39 Personal history of other diseases of the musculoskeletal system and connective tissue; Z86.69 Personal history of other diseases of the nervous system and sense organs; Z86.59 Personal history of other mental and behavioral disorders; Z87.81 Personal history of (healed) traumatic fracture; Z88.0 Allergy status to penicillin; Z82.5 Family history of asthma and other chronic lower respiratory diseases; Z82.49 Family history of ischemic heart disease and other diseases of the circulatory system; Z81.1 Family history of alcohol abuse and dependence; Z82.69 Family history of other diseases of the musculoskeletal system and connective tissue; Z83.2 Family history of diseases of the blood and blood-forming organs and certain disorders involving the immune mechanism
CPT/HCPCS: 36415; 51702; 70450; 71045; 71046; 76705; 80053; 80074; 80306; 80320; 80329; 81001; 82140; 82803; 82805; 83520; 83605; 83735; 84484; 85025; 85610; 85730; 87040; 87070; 87086; 87205; 93005; 94002; 94003; 95816; 96361; 96374; 96375; 99291